=== PATIENT | female | born 1955 | race Caucasian/White ===

== ENCOUNTER → 2016-05-03 | Outpatient (CLI) | payer BC | END | disposition home or self-care (01) | LOC: RADCTMAIN 12:34 | PROVIDERS: ATTEND Otolaryngology | DX: R49.0 Dysphonia (principal) | CPT/HCPCS: 82565; 84520; 86376; 86800 ==

== ENCOUNTER → 2016-05-10 | Outpatient (CLI) | payer BC ==
--- NOTE | 2016-05-10 14:32 | CT ---
EXAMINATION TYPE: CT soft tissue neck w con DATE OF EXAM: 05/10/2016 2:21 PM COMPARISON: NONE HISTORY: Hoarseness CT DLP: 651 mGycm CONTRAST: CT scan of the neck is performed with IV Contrast, patient injected with 50 mL of Visipaque 320. Contrast enhanced CT of the neck was performed from the skull base through the lung apices. AIRWAY: Soft tissue mass at the base of the right tongue measures approximately 2.5 x [address] upon the airway with narrowing noted up to 7 mm. SALIVARY GLANDS: The submandibular and parotid g lands are free of mass or inflammatory process. THYROID GLAND: No nodules or masses seen. LYMPH NODES: 1 cm adenopathy in the region of the right internal jugular chain. LUNG APICES: No nodule or mass is seen. OTHER: Vascular structures are patent. No significant degenerative change of the cervical spine. N o abscess seen. IMPRESSION: Soft tissue mass at the base of the tongue. Tissue diagnosis recommended. Mild adenopathy right inte rnal jugular chain.
== END | disposition home or self-care (01) ==
LOC: RADXRMAIN 12:26
PROVIDERS: ATTEND Otolaryngology
DX: K14.8 Other diseases of tongue (principal); R59.0 Localized enlarged lymph nodes
CPT/HCPCS: 70491; 82565; 84520

== ENCOUNTER 2016-06-16 08:56 | Day surgery (SDC) | payer BC ==
[2016-06-11 12:35] VITALS: BMI 29.9
[~2016-06-16 08:56] MED LIST: DEXAMETHASONE SOD PHOSPHATE 10 MG/ML 1 ML VIAL IV ONE; DEXAMETHASONE SOD PHOSPHATE 4 MG/ML 1 ML VIAL IV ONE; FAMOTIDINE 20 MG/2 ML VIAL IV ONE; HYDROmorphone 1 MG/ML 1 ML SYRINGE IVP PRN; LACTATED RINGERS 1,000 ML IV SCH; MIDAZOLAM 2 MG/2 ML VIAL IV PRN; ONDANSETRON 4 MG/2 ML VIAL IVP ONE; Pre Op ABX Message 1 EACH MISC MISCELLANE ONE
[2016-06-16 09:54] VITALS: TEMP 97.6
[2016-06-16 10:00] LABS: Glucose,Whole Blood 170 mg/dL (75-99)
[2016-06-16] MEDS ORDERED: LIDOCAINE 1% 20 ML VIAL (10MG/ML) FOR IV START INTRADERMA ONE (10:02)
[2016-06-16] MEDS ORDERED: ONDANSETRON 4 MG/2 ML VIAL IVP ONE (10:05)
[2016-06-16] MEDS ORDERED: MIDAZOLAM 2 MG/2 ML VIAL ONE (10:15)
[2016-06-16] MEDS ORDERED: LIDOCAINE 1% INJ 10MG/ML (20 ML MDV) ONE (10:15)
[2016-06-16] MEDS ORDERED: PROPOFOL 10 MG/ML 20 ML VIAL IV ONE (10:15)
[2016-06-16] MEDS ORDERED: fentaNYL (PF) 50 MCG/ML 2 ML AMP ONE (10:15)
--- NOTE | 2016-06-16 10:56 | P.OP ---
Date of Procedure: 06/16/16 Preoperative Diagnosis: Right base of tongue Mass. Hoarseness/chronic laryngitis Postoperative Diagnosis: Same Procedure(s) Performed: Direct microlaryngoscopy with biopsy right base of tongue Anesthesia: MARISELA Surgeon: Alphonso Long Estimated Blood Loss (ml): 2 Pathology: other (Right base of tongue biopsies) Condition: stable Disposition: PACU Indications for Procedure: This is a 61-year-old white female who has had some chronic hoarseness. She also has had an intermittent globus sensation in throat. She underwent computed tomography scan of the neck which showed a 3 x 2 cm right tongue base mass. Direct visualization in the office showed lingual tonsillar hypertrophy with some asymmetry to the right but no focal mass otherwise. Operative Findings: The larynx itself shows no abnormal masses or lesions. There is mild bilateral true vocal cord edema diffusely but no focal masses or lesions. The base of tongue shows lingual tonsillar hypertrophy. This is more prominent on the right but appears consistent with lingual tonsillar tissue. Multiple biopsies however were taken. This tissue is soft and mobile Description of Procedure: The patient was brought in the operative suite and placed in a supine position. The patient underwent induction of general anesthesia with oral endotracheal intubation without difficulty. The patient was prepped and draped in usual aseptic fashion. The gum guard was placed and the base of tongue was palpated digitally with soft hypertrophied lingual tonsils palpated. This was more so on the right than the left. Laryngoscopy was then performed with systematic evaluation of the base of tongue vallecula both piriform sinuses post cricoid area and endolarynx. The laryngoscope was placed in suspension and microscope was brought into position to evaluate the larynx under microscopy with the above findings noted. The microscope and suspension was then removed. Further direct laryngoscopy was performed to evaluate the base of tongue further and multiple small biopsies were taken on the right base of tongue. Hemostasis was gained spontaneously. The patient was then suctioned in oral gastric fashion. The patient was allowed to emerge from general anesthesia having tolerated procedure well exited the operating suite and transferred to the postop recovery in satisfactory condition.
[2016-06-16 11:26] VITALS: RESP 18
[2016-06-16 12:08] VITALS: BP 124/72; PULSE 86
== END 2016-06-16 11:33 | disposition home or self-care (01) ==
LOC: OR 08:56
PROVIDERS: ATTEND Otolaryngology
DX: K14.0 Glossitis (principal); R49.0 Dysphonia; J37.0 Chronic laryngitis; I10 Essential (primary) hypertension; E11.9 Type 2 diabetes mellitus without complications; M10.9 Gout, unspecified; I25.10 Atherosclerotic heart disease of native coronary artery without angina pectoris; M79.7 Fibromyalgia; F17.200 Nicotine dependence, unspecified, uncomplicated; Z79.84 Long term (current) use of oral hypoglycemic drugs; Z79.1 Long term (current) use of non-steroidal anti-inflammatories (NSAID); Z79.899 Other long term (current) drug therapy; Z88.5 Allergy status to narcotic agent
CPT/HCPCS: 88305; 31526; J2250; J1100; J2405; J2001; J3010; J2704

== ENCOUNTER → 2017-01-17 | Outpatient (CLI) | payer BC ==
--- NOTE | 2017-01-17 16:08 | US ---
EXAMINATION TYPE: US carotid duplex BILAT DATE OF EXAM: 01/17/2017 COMPARISON: NONE CLINICAL HISTORY: 61-year-old female R55 Syncope. TECHNIQUE: Multiple sonographic images of the carotid duplex ultrasound examination. Indirect Doppler criteria was utilized. FINDINGS: There is moderate atherosclerotic change at the bifurcations. EXAM MEASUREMENTS: RIGHT: Peak Systolic Velocity (PSV) cm/sec ----- Right CCA: 72.1 ----- Right ICA: 95.2 ----- Right ECA: 102.9 ICA/CCA ratio: 1.3 RIGHT: End Diastole cm/sec ----- Right CCA: 18.8 ----- Right ICA: 27.0 ----- Right ECA: 13.8 LEFT: Peak Systolic Velocity (PSV) cm/sec ----- Left CCA: 86.4 ----- Left ICA: 110.6 ----- Left ECA: 91.9 ICA/CCA ratio: 1.3 LEFT: End Diastole cm/sec ----- Left CCA: 29.2 ----- Left ICA: 39.1 ----- Left ECA: 12.8 VERTEBRALS (direction of flow): Right Vertebral: Antegrade Left Vertebral: Antegrade Rhythm: Normal IMPRESSION: Moderate atherosclerotic change at the bifurcations without hemodynamically significant stenosis appr eciated in either internal carotid artery. Criteria for Assigning % of Stenosis / Diameter reduction (Estimation based on the indirect measurements of the internal carotid artery velocities (ICA PSV). 1. Normal (no stenosis)=ICA PSV < 125 cm/s: ratio < 2.0: ICA EDV<40 cm/s. 2. Less than 50% stenosis=ICA PSV < 125 cm/s: ratio < 2.0: ICA EDV<40 cm/s. 3. 50 to 69% stenosis=ICA PSV of 125 to 230 cm/s: ration 2.0 ? 4.0: ICA EDV 40-100 cm/s. 4. Greater than 70% stenosis to near occlusion= ICA PSV > 230 cm/s: ratio > 4.0: ICA EDV > 100 cm/s. 5. Near occlusion= ICA PSV velocities may be low or undetectable: variable ratio and ICA EDV. 6. Total occlusion=unable to detect flow.
== END ==
LOC: RADUSWWP 13:26
PROVIDERS: ATTEND Family Medicine
DX: I70.90 Unspecified atherosclerosis (principal)
CPT/HCPCS: 93880

== ENCOUNTER → 2018-01-20 | Outpatient (CLI) | payer BC ==
--- NOTE | 2018-01-23 10:43 | MM ---
Reason for exam: screening (asymptomatic). Last mammogram was performed 3 years and 5 months ago. History: Patient is postmenopausal, history of other cancer, and is nulliparous. Physical Findings: A clinical breast exam by your physician is recommended on an annual basis and results should be correlated with mammographic findings. MG Screening Mammo w CAD Bilateral CC, MLO, and XCCL view(s) were taken. Prior study comparison: August 29, 2014, left breast MG work up mamm w CAD LT. August 21, 2014, bilateral MG screening mammo w CAD. The breast tissue is heterogeneously dense. This may lower the sensitivity of mammography. There are benign appearing round calcifications bilaterally. There is no discrete abnormality. ASSESSMENT: Benign, BI-RAD 2 RECOMMENDATION: Routine screening mammogram of both breasts in 1 year.
== END | disposition home or self-care (01) ==
LOC: RADMAMWWP 13:21
PROVIDERS: ATTEND Family Medicine
DX: Z12.31 Encounter for screening mammogram for malignant neoplasm of breast (principal)
CPT/HCPCS: 77067

== ENCOUNTER 2018-03-23 06:46 | Day surgery (SDC) | payer BC ==
[2018-03-21 13:13] VITALS: BMI 26.6
[~2018-03-23 06:46] MED LIST changes: -DEXAMETHASONE SOD PHOSPHATE 10 MG/ML 1 ML VIAL IV ONE; -DEXAMETHASONE SOD PHOSPHATE 4 MG/ML 1 ML VIAL IV ONE; -FAMOTIDINE 20 MG/2 ML VIAL IV ONE; -HYDROmorphone 1 MG/ML 1 ML SYRINGE IVP PRN; +LIDOCAINE 1% 20 ML VIAL (10MG/ML) FOR IV START INTRADERMA PRN; -MIDAZOLAM 2 MG/2 ML VIAL IV PRN; -ONDANSETRON 4 MG/2 ML VIAL IVP ONE; -Pre Op ABX Message 1 EACH MISC MISCELLANE ONE
[2018-03-23 07:20] VITALS: RESP 16; TEMP 98.5
[2018-03-23 07:34] LABS: Glucose,Whole Blood 133 mg/dL (75-99)
[2018-03-23] MEDS ORDERED: LIDOCAINE 1% INJ 10MG/ML (20 ML MDV) ONE (07:36)
[2018-03-23] MEDS ORDERED: PROPOFOL 10 MG/ML 20 ML VIAL IV ONE (07:36)
--- NOTE | 2018-03-23 08:45 | P.PCN ---
Date of Procedure: 03/23/18 Description of Procedure: BRIEF HISTORY: Patient is a 62-year-old pleasant female patient with a medical history significant for diabetes mellitus, hypertension, COPD, dyslipidemia and prior history of microscopic colitis seen in the outpatient setting for a history of diarrhea. Previously she hasn't had a colonoscopy with the surgical service in January 2015 which was significant for lymphocytic colitis on pathology evaluation. The patient has been tried on multiple medications including antibiotic therapy, Pepto-Bismol, hyoscyamine as well as Lomotil and Imodium but has been unable to get control of her loose bowel movements. Previously she had been using an [id number] pain reliever which contains aspirin which she stopped after seeing us in consult, but is continued to have symptoms. She is having a colonoscopy to confirm persistent microscopic colitis with consideration for steroid treatment. PROCEDURE PERFORMED: Colonoscopy with polypectomy and random biopsy. PREOPERATIVE DIAGNOSIS: Diarrhea history of microscopic colitis. ESTIMATED BLOOD LOSS: Minimal. IV sedation per Anesthesia. PROCEDURE: After informed consent was obtained, the patient, was brought into the endoscopy unit. IV sedation was administered by Anesthesia under continuous monitoring. Digital rectal examination was normal. Initially the Olympus CF- 190 flexible video colonoscope was then inserted in the rectum, gradually advanced into the cecum without any difficulty. Careful examination was performed as the scope was gradually being withdrawn. Ileocecal valve and the appendiceal orifice were visualized and appeared normal. Prep was excellent. Mucosa of the cecum, ascending colon, transverse colon, descending colon, sigmoid colon, and rectum appeared normal. A 4 mm polyp was noted in the cecum and removed with cold snare polypectomy. A 8 mm polyp was noted in the descending colon and removed with cold snare. A 6 mm polyp was noted in the rectum and removed with cold snare. Retroflexion was performed in the rectum and no lesions were seen, but internal hemorrhoids were noted. The patient tolerated the procedure well. IMPRESSION: Normal-appearing colon from rectum to cecum. Cecal, ascending and rectal polypectomy performed. Internal hemorrhoids. RECOMMENDATIONS: Findings of this examination were discussed with the patient and her sister. Await pathology from biopsies. Continue Imodium as needed. Consideration for steroid therapy if microscopic colitis is confirmed. Patient to follow up in GI clinic.
[2018-03-23 08:53] VITALS: BP 152/78; PULSE 80
== END 2018-03-23 09:44 | disposition home or self-care (01) ==
LOC: ORWHC2ENDO 06:46
PROVIDERS: ATTEND Internal Medicine
DX: D12.2 Benign neoplasm of ascending colon (principal); D12.0 Benign neoplasm of cecum; K62.1 Rectal polyp; K63.5 Polyp of colon; K64.8 Other hemorrhoids; R19.7 Diarrhea, unspecified; E11.9 Type 2 diabetes mellitus without complications; I10 Essential (primary) hypertension; J44.9 Chronic obstructive pulmonary disease, unspecified; E78.5 Hyperlipidemia, unspecified; F17.210 Nicotine dependence, cigarettes, uncomplicated; Z79.899 Other long term (current) drug therapy; Z79.84 Long term (current) use of oral hypoglycemic drugs; Z88.1 Allergy status to other antibiotic agents; Z88.5 Allergy status to narcotic agent; Z85.820 Personal history of malignant melanoma of skin
CPT/HCPCS: 88305; 45385; J2001; J2704; 45380

== ENCOUNTER 2018-05-02 13:38 | Inpatient (IN) | payer BC ==
[2018-05-02] MEDS ORDERED: SODIUM CHLORIDE 0.9% 1,000 ML IV ONE ×2 (15:11→16:49)
[2018-05-02] MEDS ORDERED: SODIUM CHLORIDE 0.9% 500 ML 500 ML IV ONE (15:11)
[2018-05-02] MEDS ORDERED: DIPHENOX-ATROP 2.5-0.025 MG 1 EACH TAB PO STA (15:11)
--- NOTE | 2018-05-02 15:17 | ED ---
General Adult HPI - General Chief complaint: Nausea/Vomiting/Diarrhea Stated complaint: DIARRHEA Time Seen by Provider: 05/02/18 13:55 Source: patient, RN notes reviewed Mode of arrival: ambulatory Limitations: no limitations - History of Present Illness Initial comments: This is a 63-year-old female presents emergency Department complaining of diarrhea 5 days. Patient states she's had intermittent bouts of diarrhea since 2007. Patient states this last 5 days is a little worse than normal. Patient states she feels dehydrated and states she hasn't urinated in over 24 hours. Patient denies any abdominal pain. Patient denies any nausea or vomiting. Patient denies any fever chills per patient denies chest pain difficulty breathing first breath per patient denies any dizziness lightheadedness or near syncopal episodes. Patient denies any blood in the stool. - Related Data Home Medications Medication Instructions Recorded Confirmed Allopurinol [Zyloprim] 300 mg PO HS 06/11/16 05/02/18 Hydrochlorothiazide [Hydrodiuril] 25 mg PO HS 06/11/16 05/02/18 Simvastatin [Zocor] 40 mg PO HS 06/11/16 05/02/18 sitaGLIPtin PHOS/metFORMIN HCL 1 tab PO BID 06/11/16 05/02/18 [Janumet 50-1,000 mg Tablet] Allergies Allergy/AdvReac Type Severity Reaction Status Date / Time atropine [From Lomotil] Allergy Swelling Verified 05/02/18 15:33 diphenoxylate [From Lomotil] Allergy Swelling Verified 05/02/18 15:33 codeine AdvReac Unknown Nausea & Verified 05/02/18 14:26 Vomiting levofloxacin [From Levaquin] AdvReac Nausea & Verified 05/02/18 14:26 Vomiting metronidazole [From Flagyl] AdvReac Nausea & Verified 05/02/18 14:26 Vomiting Review of Systems ROS Statement: Those systems with pertinent positive or pertinent negative responses have been documented in the HPI. ROS Other: All systems not noted in ROS Statement are negative. Past Medical History Past Medical History: Cancer, Diabetes Mellitus, Fibromyalgia Additional Past Medical History / Comment(s): STATES "WATER RETENTION", TAKES ALLOPURINAL FOR A PREVENATIVE FOR GOUT DUE TO FAMILY HX., IBS WITH DIARRHEA., HX OF MELANOMA, TORN RIGHT ROTATOR CUFF, STATES MASS AT BASE OF TONGUE -FEELS LIKE SHE HAS SOMETHING IN HER THROAT. History of Any Multi-Drug Resistant Organisms: None Reported Past Surgical History: Cholecystectomy, Orthopedic Surgery, Tonsillectomy Additional Past Surgical History / Comment(s): LEFT ROTATOR CUFF, KNEE SURGERY, SKIN CA, MARIO EAR SURGERY. Past Anesthesia/Blood Transfusion Reactions: Postoperative Nausea & Vomiting ( PONV) Past Psychological History: No Psychological Hx Reported Smoking Status: Current every day smoker Past Alcohol Use History: None Reported Past Drug Use History: None Reported - Past Family History Mother Family Medical History: No Reported History Brother(s) Family Medical History: Deep Vein Thrombosis (DVT), Myocardial Infarction ([place]), Vascular Disorder General Exam - General Exam Comments Initial Comments: GENERAL: Patient is well-developed and well-nourished. Patient is nontoxic and well- hydrated and is in mild distress. ENT: Neck is soft and supple. No significant lymphadenopathy is noted. Oropharynx is clear. Dry mucous membranes. Neck has full range of motion without eliciting any pain. EYES: The sclera were anicteric and conjunctiva were pink and moist. Extraocular movements were intact and pupils were equal round and reactive to light. Eyelids were unremarkable. PULMONARY: Unlabored respirations. Good breath sounds bilaterally. No audible rales rhonchi or wheezing was noted. CARDIOVASCULAR: There is a regular rate and rhythm without any murmurs gallops or rubs. ABDOMEN: Soft and nontender with normal bowel sounds. No palpable organomegaly was noted. There is no palpable pulsatile mass. SKIN: Skin is clear with no lesions or rashes and otherwise unremarkable. NEUROLOGIC: Patient is alert and oriented x3. Cranial nerves II through XII are grossly intact. Motor and sensory are also intact. Normal speech, volume and content. Symmetrical smile. MUSCULOSKELETAL: Normal extremities with adequate strength and full range of motion. No lower extremity swelling or edema. No calf tenderness. LYMPHATICS: No significant lymphadenopathy is noted PSYCHIATRIC: Normal psychiatric evaluation. Limitations: no limitations Course Vital Signs 05/02/18 05/02/18 13:55 16:06 Temperature 98.1 F Pulse Rate 100 91 Respiratory 18 18 Rate Blood Pressure 121/77 124/73 O2 Sat by Pulse 97 99 Oximetry Medical Decision Making - Medical Decision Making Patient's potassium was also replaced some potassium with a oral dose as well as an IV dose. Patient also had an elevated creatinine I spoke with because the doctor doesn't want to admit the patient admitted the patient wrote admitting orders - Lab Data Result diagrams: 05/02/18 15:20 05/02/18 15:20 Lab Results 05/02/18 05/02/18 Range/Units 15:20 15:20 WBC 9.2 (3.8-10.6) k/uL RBC 4.86 (3.80-5.40) m/uL Hgb 14.8 (11.4-16.0) gm/dL Hct 44.6 (34.0-46.0) % MCV 91.9 (80.0-100.0) fL MCH 30.4 (25.0-35.0) pg MCHC 33.1 (31.0-37.0) g/dL RDW 14.4 (11.5-15.5) % Plt Count 238 (150-450) k/uL Neutrophils % 86 % Lymphocytes % 10 % Monocytes % 3 % Eosinophils % 0 % Basophils % 0 % Neutrophils # 7.9 H (1.3-7.7) k/uL Lymphocytes # 0.9 L (1.0-4.8) k/uL Monocytes # 0.3 (0-1.0) k/uL Eosinophils # 0.0 (0-0.7) k/uL Basophils # 0.0 (0-0.2) k/uL Sodium 141 (137-145) mmol/L Potassium 2.7 L* (3.5-5.1) mmol/L Chloride 101 (98-107) mmol/L Carbon Dioxide 26 (22-30) mmol/L Anion Gap 14 mmol/L BUN 27 H (7-17) mg/dL Creatinine 2.40 H (0.52-1.04) mg/dL Est GFR (CKD-EPI)AfAm 24 (>60 ml/min/1.73 sqM) Est GFR (CKD-EPI)NonAf 21 (>60 ml/min/1.73 sqM) Glucose 130 H (74-99) mg/dL Calcium 9.3 (8.4-10.2) mg/dL Total Bilirubin 0.7 (0.2-1.3) mg/dL AST 14 (14-36) U/L ALT 15 (9-52) U/L Alkaline Phosphatase 77 (38-126) U/L Total Protein 6.6 (6.3-8.2) g/dL Albumin 4.4 (3.5-5.0) g/dL Disposition Clinical Impression: Hypokalemia, Acute renal failure Disposition: ADMITTED IP TO THIS HOSP Referrals: Ari Cristina MD [Primary Care Provider] - 1-2 days Time of Disposition: 16:43
[2018-05-02 15:43] LABS: Basophils % (A) 0 %; Eosinophils % (A) 0 %; HCT 44.6 % (34.0-46.0); HGB 14.8 gm/dL (11.4-16.0); Lymphocytes # (A) 0.9 k/uL (1.0-4.8); Lymphocytes % (A) 10 %; MCH 30.4 pg (25.0-35.0); MCHC 33.1 g/dL (31.0-37.0); MCV 91.9 fL (80.0-100.0); Mean Platelet Volume 6.1; Monocytes # (A) 0.3 k/uL (0-1.0); Monocytes % (A) 3 %; Neutrophils # (A) 7.9 k/uL (1.3-7.7); Neutrophils % (A) 86 %; Platelet Count 238 k/uL (150-450); RBC 4.86 m/uL (3.80-5.40); RDW 14.4 % (11.5-15.5); WBC 9.2 k/uL (3.8-10.6)
[2018-05-02 15:53] LABS: Albumin 4.4 g/dL (3.5-5.0); Calcium 9.3 mg/dL (8.4-10.2); Total Bilirubin 0.7 mg/dL (0.2-1.3); Total Protein 6.6 g/dL (6.3-8.2)
[2018-05-02 15:56] LABS: Potassium 2.7 mmol/L (3.5-5.1)
[2018-05-02] MEDS ORDERED: POTASSIUM CHLORIDE 20 MEQ in WATER FOR INJECTION 1 100ML.BAG IVPB STA (16:07)
[2018-05-02] MEDS ORDERED: POTASSIUM CHLORIDE ER 20 MEQ TAB.ER PO STA ×2 (16:08→23:18)
[2018-05-02] MEDS ORDERED: DIPHENOX-ATROP 2.5-0.025 MG 1 EACH TAB PO PRN (16:50)
--- NOTE | 2018-05-02 17:56 | P.HPIM ---
History of Present Illness 63-year-old female came in with compensative from severe and worsening diarrhea from her baseline for last 4-5 days. Patient is found to be in renal failure secondary to diarrhea because of which patient was started on IV fluids patient is severely hypokalemic as well. Patient baseline creatinine appears to be around 1.1.4 of around 2.5. Patient has history of chronic diarrhea was evaluated extensively in the past patient had a colonoscopy which showed microscopic colitis supposed to get budesonide oral but because of the cost patient didn't take this medication. Patient does antibiotics in late March for what appears like upper respiratory infection. Patient also has symptoms of flu earlier this month. C. diff testing is being obtained a C. diff is negative patient can be started on symptomatic treatment. Patient appears to have had ALLERGIC reaction to Lomotil. Denied any nausea vomiting she denied any abdominal pain she denied any hematochezia, dark stools Review of Systems REVIEW OF SYSTEMS: CONSTITUTIONAL: No fever, no malaise, no fatigue. HEENT: No recent visual problems or hearing problems. Denied any sore throat. CARDIOVASCULAR: No chest pain, orthopnea, PND, no palpitations, no syncope. PULMONARY: No shortness of breath, no cough, no hemoptysis. GASTROINTESTINAL no nausea, no vomiting, no abdominal pain. NEUROLOGICAL: No headaches, no weakness, no numbness. HEMATOLOGICAL: Denies any bleeding or petechiae. GENITOURINARY: Denies any burning micturition, frequency, or urgency. MUSCULOSKELETAL/RHEUMATOLOGICAL: Denies any joint pain, swelling, or any muscle pain. ENDOCRINE: Denies any polyuria or polydipsia. The rest of the 14-point review of systems is negative. Past Medical History Past Medical History: Cancer, Diabetes Mellitus, Fibromyalgia Additional Past Medical History / Comment(s): STATES "WATER RETENTION", TAKES ALLOPURINAL FOR A PREVENATIVE FOR GOUT DUE TO FAMILY HX., IBS WITH DIARRHEA., HX OF MELANOMA, TORN RIGHT ROTATOR CUFF, STATES MASS AT BASE OF TONGUE -FEELS LIKE SHE HAS SOMETHING IN HER THROAT. History of Any Multi-Drug Resistant Organisms: None Reported Past Surgical History: Cholecystectomy, Orthopedic Surgery, Tonsillectomy Additional Past Surgical History / Comment(s): LEFT ROTATOR CUFF, KNEE SURGERY, SKIN CA, MARIO EAR SURGERY. Past Anesthesia/Blood Transfusion Reactions: Postoperative Nausea & Vomiting ( PONV) Past Psychological History: No Psychological Hx Reported Smoking Status: Current every day smoker Past Alcohol Use History: None Reported Past Drug Use History: None Reported - Past Family History Mother Family Medical History: No Reported History Brother(s) Family Medical History: Deep Vein Thrombosis (DVT), Myocardial Infarction ([place]), Vascular Disorder Medications and Allergies Home Medications Medication Instructions Recorded Confirmed Type Allopurinol [Zyloprim] 300 mg PO HS 06/11/16 05/02/18 History Hydrochlorothiazide [Hydrodiuril] 25 mg PO HS 06/11/16 05/02/18 History Simvastatin [Zocor] 40 mg PO HS 06/11/16 05/02/18 History sitaGLIPtin PHOS/metFORMIN HCL 1 tab PO BID 06/11/16 05/02/18 History [Janumet 50-1,000 mg Tablet] Allergies Allergy/AdvReac Type Severity Reaction Status Date / Time atropine [From Lomotil] Allergy Swelling Verified 05/02/18 15:33 diphenoxylate [From Lomotil] Allergy Swelling Verified 05/02/18 15:33 codeine AdvReac Unknown Nausea & Verified 05/02/18 14:26 Vomiting levofloxacin [From Levaquin] AdvReac Nausea & Verified 05/02/18 14:26 Vomiting metronidazole [From Flagyl] AdvReac Nausea & Verified 05/02/18 14:26 Vomiting Physical Exam Vitals: Vital Signs Temp Pulse Resp BP Pulse Ox 05/02/18 17:17 98.2 F 84 18 115/62 97 05/02/18 16:06 91 18 124/73 99 05/02/18 13:55 98.1 F 100 18 121/77 97 Intake and Output 05/02/18 05/02/18 05/02/18 06:59 14:59 22:59 Other: Weight 72.575 kg PHYSICAL EXAMINATION: GENERAL: The patient is alert and oriented x3, not in any acute distress. Well developed, well nourished. HEENT: Pupils are round and equally reacting to light. EOMI. No scleral icterus. No conjunctival pallor. Normocephalic, atraumatic. No pharyngeal erythema. No thyromegaly. CARDIOVASCULAR: S1 and S2 present. No murmurs, rubs, or gallops. PULMONARY: Chest is clear to auscultation, no wheezing or crackles. ABDOMEN: Soft, nontender, nondistended, normoactive bowel sounds. No palpable organomegaly. MUSCULOSKELETAL: No joint swelling or deformity. EXTREMITIES: No cyanosis, clubbing, or pedal edema. NEUROLOGICAL: Gross neurological examination did not reveal any focal deficits. SKIN: No rashes. Results CBC & Chem 7: 05/02/18 15:20 05/02/18 15:20 Labs: Abnormal Lab Results - Last 24 Hours (Table) 05/02/18 05/02/18 Range/Units 15:20 15:20 Neutrophils # 7.9 H (1.3-7.7) k/uL Lymphocytes # 0.9 L (1.0-4.8) k/uL Potassium 2.7 L* (3.5-5.1) mmol/L BUN 27 H (7-17) mg/dL Creatinine 2.40 H (0.52-1.04) mg/dL Glucose 130 H (74-99) mg/dL Assessment and Plan Plan: -Acute renal failure: Prerenal azotemia secondary to severe diarrhea patient will be started on IV fluids at 1 25 mL/h with 40 mEq of potassium in the back recheck a significant metabolic profile tomorrow. I cannot rule out acute tubular necrosis will obtain UA, urine random creatinine urine random sodium did patient has not been urinating much for last couple days. We'll rule out Clostridium difficile colitis area patient will be started and on symptomatically treatment 1 C. diff is ruled out we'll Allsop in consultation from gastroenterology as patient symptoms may be related to microscopic colitis( lymphocytis colitis). -possible chronic kidney disease stage II to 3 from diabetic nephropathy -Type 2 diabetes mellitus: Patient will be started on sliding scale insulin and hold off oral hypoglycemic agents -Fibromyalgia -Nicotine abuse: Counseling was provided
[2018-05-02] MEDS: 0.9% NACL WITH KCL 40 MEQ/L 1,000 ML IV SCH (18:40)
[2018-05-02] MEDS: INSULIN ASPART 100 UNIT/ML 1 ML 10 ML VIAL SQ SCH ×2 (20:04→20:06)
[2018-05-02] MEDS: ATORVASTATIN 20 MG TAB PO SCH (20:05)
[2018-05-02 20:21] LABS: Glucose,Whole Blood 111 mg/dL (75-99)
[2018-05-02] MEDS ORDERED: INSULIN ASPART 100 UNIT/ML 1 ML 10 ML VIAL SQ SCH (21:00)
[2018-05-03 04:29] LABS: Hemoglobin A1C 6.2 % (4.0-6.0)
[2018-05-03] MEDS: 0.9% NACL WITH KCL 40 MEQ/L 1,000 ML IV SCH ×2 (06:22→08:56)
[2018-05-03 08:01] LABS: Glucose,Whole Blood 115 mg/dL (75-99)
[2018-05-03] MEDS: INSULIN ASPART 100 UNIT/ML 1 ML 10 ML VIAL SQ SCH ×3 (08:49→18:01)
[2018-05-03 08:51] LABS: HCT 39.8 % (34.0-46.0); HGB 13.6 gm/dL (11.4-16.0); MCH 31.5 pg (25.0-35.0); MCHC 34.2 g/dL (31.0-37.0); MCV 92.1 fL (80.0-100.0); Mean Platelet Volume 6.9; Platelet Count 224 k/uL (150-450); RBC 4.32 m/uL (3.80-5.40); RDW 14.4 % (11.5-15.5); WBC 7.3 k/uL (3.8-10.6)
[2018-05-03 09:10] LABS: Calcium 8.7 mg/dL (8.4-10.2); Magnesium 1.4 mg/dL (1.6-2.3); Potassium 3.8 mmol/L (3.5-5.1)
--- NOTE | 2018-05-03 10:41 | P.NPCON ---
History of Present Illness - Reason for Consult acute renal failure, hypokalemia - History of Present Illness Reason for consultation: Acute kidney injury History of present illness: Patient is a 63-year-old female seen in consultation for acute kidney injury and hypokalemia. Patient presented to the hospital due to diarrhea which started about 5 days ago. Patient states she is having 2-3 bowel movements every hour. Her oral intake has been quite poor. She also admits to taking hydrochlorothiazide as an outpatient. No vomiting. Denies history of renal disease. Creatinine last month was 1.2 and over the last 2 years her baseline creatinine appears to be in the range of 1.1-1.3. She does have history of diabetes mellitus. She was taking metformin at home which is currently held. Continues to have diarrhea. Denies chest pain or shortness of breath. Denies use of NSAIDs. Creatinine was 2.4 on admission and is 1.47 today. Potassium is 3.8. Magnesium level is low at 1.4. Vital signs are stable. General: The patient appeared well nourished and normally developed. HEENT: Head exam is unremarkable. Neck is without jugular venous distension. LUNGS: Lungs are clear to auscultation and percussion. Breath sounds decreased. HEART: Rate and Rhythm are regular. First and second heart sounds normal. No murmurs, rubs or gallops. ABDOMEN: Abdominal exam reveals normal bowel sounds. Non-tender and non- distended. No evidence of peritonitis. EXTREMITITES: No clubbing, cyanosis, or edema. Past Medical History Past Medical History: Cancer, Diabetes Mellitus, Fibromyalgia Additional Past Medical History / Comment(s): STATES "WATER RETENTION", IBS WITH DIARRHEA., OF MELANOMA, TORN RIGHT ROTATOR CUFF, STATES Lingual Tonsilar TissueMASS AT BASE OF TONGUE -FEELS LIKE SHE HAS SOMETHING IN HER THROAT. History of Any Multi-Drug Resistant Organisms: None Reported Past Surgical History: Cholecystectomy, Orthopedic Surgery, Tonsillectomy Additional Past Surgical History / Comment(s): LEFT ROTATOR CUFF, RT KNEE SURGERY, SKIN CA, MARIO EAR SURGERY. Colonoscopy 03/23/18-microscopic colitis Past Anesthesia/Blood Transfusion Reactions: Postoperative Nausea & Vomiting ( PONV) Past Psychological History: No Psychological Hx Reported Smoking Status: Current every day smoker Past Alcohol Use History: None Reported Past Drug Use History: None Reported - Past Family History Mother Family Medical History: No Reported History, Dementia Additional Family Medical History / Comment(s): PARKINSONS Brother(s) Family Medical History: Deep Vein Thrombosis (DVT), Myocardial Infarction ([place]), Vascular Disorder Father Family Medical History: Diabetes Mellitus Medications and Allergies Home Medications Medication Instructions Recorded Confirmed Type Allopurinol [Zyloprim] 300 mg PO HS 06/11/16 05/02/18 History Hydrochlorothiazide [Hydrodiuril] 25 mg PO HS 06/11/16 05/02/18 History Simvastatin [Zocor] 40 mg PO HS 06/11/16 05/02/18 History sitaGLIPtin PHOS/metFORMIN HCL 1 tab PO BID 06/11/16 05/02/18 History [Janumet 50-1,000 mg Tablet] Allergies Allergy/AdvReac Type Severity Reaction Status Date / Time atropine [From Lomotil] Allergy Swelling Verified 05/02/18 15:33 diphenoxylate [From Lomotil] Allergy Swelling Verified 05/02/18 15:33 codeine AdvReac Unknown Nausea & Verified 05/02/18 14:26 Vomiting levofloxacin [From Levaquin] AdvReac Nausea & Verified 05/02/18 14:26 Vomiting metronidazole [From Flagyl] AdvReac Nausea & Verified 05/02/18 14:26 Vomiting Physical Exam Vitals: Vital Signs Temp Pulse Pulse Resp BP BP Pulse Ox 05/03/18 07:00 98.2 F 79 16 112/70 94 L 05/02/18 23:45 98.7 F 87 20 112/67 93 L 05/02/18 23:06 16 05/02/18 18:34 98.0 F 88 16 111/70 96 05/02/18 17:17 98.2 F 84 18 115/62 97 05/02/18 16:06 91 18 124/73 99 05/02/18 13:55 98.1 F 100 18 121/77 97 Intake and Output 05/02/18 05/03/18 05/03/18 22:59 06:59 14:59 Other: Voiding Method Toilet Toilet # Voids 0 # Bowel Movements 5 1 Results - Lab Results Most recent lab results Calcium 8.7 mg/dL (8.4-10.2) 05/03/18 08:37 Magnesium 1.4 mg/dL (1.6-2.3) L 05/03/18 08:37 05/03/18 08:37 05/03/18 08:37 Assessment and Plan Plan: Assessment: 1. Nonoliguric acute kidney injury mostly prerenal secondary to intravascular volume depletion from diarrhea and hydrochlorothiazide. Creatinine was 2.4 on admission and is 1.47 today. 2. Chronic kidney disease stage III with baseline creatinine in the range of 1.1-1.3. Etiology is diabetic kidney disease. 3. Hypokalemia from GI losses as well as diuretics. 4. Hypomagnesemia secondary to diuretics and GI losses. 5. Diarrhea. She does have history of colitis. GI following. 6. Diabetes mellitus. Plan: Maintain normal saline at 125 mL an hour. Replace magnesium. 3 g IV today. Avoid nephrotoxins. Repeat electrolytes in the morning. Thank you for the consultation. I will continue to follow the patient with you during her hospital stay.
[2018-05-03 10:42] VITALS: BMI 26.6
[2018-05-03] MEDS ORDERED: LOPERAMIDE 2 MG CAP PO STA (11:00)
[2018-05-03] MEDS: SODIUM CHLORIDE 0.9% 1,000 ML IV SCH ×2 (11:05→18:03)
[2018-05-03] MEDS: MAGNESIUM SULFATE-D5W PMX 1 GM in DEXTROSE/WATER 1 100ML.BAG IVPB SCH ×3 (11:07→13:40)
--- NOTE | 2018-05-03 11:07 | P.CONS ---
History of Present Illness - Reason for Consult Consult date: 05/03/18 Diarrhea history of microscopic colitis Requesting physician: Virgil Holman - Chief Complaint Diarrhea - History of Present Illness 63-year-old female with a history of IBS-D, microscopic colitis recent colonoscopy March 2018 admitted with profound nonbloody diarrhea upwards 20 times daily. Patient was advised in the outpatient setting to take Imodium as well as Entocort for microscopic colitis however patient was not able to fill prescription secondary to financial reasons and only takes Imodium when she leaves the house. Over the last 5 days she's had 2-3 bowel movements an hour. Her baseline bowel movements is one daily sometimes 2-3 daily. She only takes Imodium when she has to leave the house. Colonoscopy biopsies consistent with a focal nonspecific acute inflammation consistent with with resolving acute infectious or self-limited colitis. C. diff negative. Denies hematemesis hematochezia melena. No fever or chills. No change in medications. No recent travels or sick contacts. White count 9.2. Hemoglobin 14.8. Sodium 141. Potassium 2.7. BUN 27. Creatinine 2.4. Presently BUN 19. Creatinine 1.4. Lactic acid initially 2.7 presently 0.9. Review of Systems Constitutional: Denies fever, chills, sweats, weight gain, or loss. HEENT: Negative for migraines, blurred vision or loss, earaches, drainage, tinnitus, oral mucosal lesions, dysphagia, or odynophagia. CARDIAC: Negative for chest pain, arrhythmias, or palpitation. RESPIRATORY: Negative for shortness of breath, hemoptysis, cough, or sputum production. GI: See HPI for pertinent findings. : Negative for hematuria, urgency, frequency, polyuria, or dysuria. GYNc: Negative vaginal discharge. MUSCULOSKELETAL: Negative for muscle aches, swelling, arthritis, and arthralgias. NEUROLOGIC: Negative for stroke or TIA. ENDOCRINE: Negative for thyroid problems. SKIN: Negative for rash or itching. PSYCHIATRIC: Negative history for depression and anxiety Past Medical History Past Medical History: Cancer, Diabetes Mellitus, Fibromyalgia Additional Past Medical History / Comment(s): STATES "WATER RETENTION", IBS WITH DIARRHEA., OF MELANOMA, TORN RIGHT ROTATOR CUFF, STATES Lingual Tonsilar TissueMASS AT BASE OF TONGUE -FEELS LIKE SHE HAS SOMETHING IN HER THROAT. History of Any Multi-Drug Resistant Organisms: None Reported Past Surgical History: Cholecystectomy, Orthopedic Surgery, Tonsillectomy Additional Past Surgical History / Comment(s): LEFT ROTATOR CUFF, RT KNEE SURGERY, SKIN CA, MARIO EAR SURGERY. Colonoscopy 03/23/18-microscopic colitis Past Anesthesia/Blood Transfusion Reactions: Postoperative Nausea & Vomiting ( PONV) Past Psychological History: No Psychological Hx Reported Smoking Status: Current every day smoker Past Alcohol Use History: None Reported Past Drug Use History: None Reported - Past Family History Mother Family Medical History: No Reported History, Dementia Additional Family Medical History / Comment(s): PARKINSONS Brother(s) Family Medical History: Deep Vein Thrombosis (DVT), Myocardial Infarction ([place]), Vascular Disorder Father Family Medical History: Diabetes Mellitus Medications and Allergies Home Medications Medication Instructions Recorded Confirmed Type Allopurinol [Zyloprim] 300 mg PO HS 06/11/16 05/02/18 History Hydrochlorothiazide [Hydrodiuril] 25 mg PO HS 06/11/16 05/02/18 History Simvastatin [Zocor] 40 mg PO HS 06/11/16 05/02/18 History sitaGLIPtin PHOS/metFORMIN HCL 1 tab PO BID 06/11/16 05/02/18 History [Janumet 50-1,000 mg Tablet] Allergies Allergy/AdvReac Type Severity Reaction Status Date / Time atropine [From Lomotil] Allergy Swelling Verified 05/02/18 15:33 diphenoxylate [From Lomotil] Allergy Swelling Verified 05/02/18 15:33 codeine AdvReac Unknown Nausea & Verified 05/02/18 14:26 Vomiting levofloxacin [From Levaquin] AdvReac Nausea & Verified 05/02/18 14:26 Vomiting metronidazole [From Flagyl] AdvReac Nausea & Verified 05/02/18 14:26 Vomiting Physical Exam Vitals: Vital Signs Temp Pulse Pulse Resp BP BP Pulse Ox 05/03/18 07:00 98.2 F 79 16 112/70 94 L 05/02/18 23:45 98.7 F 87 20 112/67 93 L 05/02/18 23:06 16 05/02/18 18:34 98.0 F 88 16 111/70 96 05/02/18 17:17 98.2 F 84 18 115/62 97 05/02/18 16:06 91 18 124/73 99 05/02/18 13:55 98.1 F 100 18 121/77 97 Intake and Output 05/02/18 05/03/18 05/03/18 22:59 06:59 14:59 Other: Voiding Method Toilet Toilet # Voids 0 # Bowel Movements 5 1 Weight 72.575 kg General appearance: The patient is alert, oriented, in no acute distress. HET: Head is normocephalic and atraumatic. Pupils are equal and reactive. Oropharynx is clear without lesions. Neck: Supple without lymphadenopathy. Trachea midline. Heart: S1 S2. Regular rate and rhythm. Lungs: No crackles or wheezes are heard. Abdomen: Soft, nontender, nondistended with bowel sounds. No peritoneal signs. No palpable organomegaly or masses. Extremities: Normal skin color and turgor. No cyanosis, rash, ulceration, clubbing, or edema. Radial and pedal pulses are 2/4 bilaterally. Neurological: No focal deficits. Strength and sensation are grossly intact. Results CBC & Chem 7: 05/03/18 08:37 05/03/18 08:37 Labs: Abnormal Lab Results - Last 24 Hours (Table) 05/02/18 05/02/18 05/02/18 Range/Units 15:20 15:20 18:07 Neutrophils # 7.9 H (1.3-7.7) k/uL Lymphocytes # 0.9 L (1.0-4.8) k/uL Potassium 2.7 L* (3.5-5.1) mmol/L Chloride (98-107) mmol/L BUN 27 H (7-17) mg/dL Creatinine 2.40 H (0.52-1.04) mg/dL Glucose 130 H (74-99) mg/dL POC Glucose (mg/dL) (75-99) mg/dL Hemoglobin A1c (4.0-6.0) % Plasma Lactic Acid Karthikeyan 2.7 H* (0.7-2.0) mmol/L Magnesium (1.6-2.3) mg/dL 05/02/18 05/02/18 05/02/18 Range/Units 20:01 21:12 21:12 Neutrophils # (1.3-7.7) k/uL Lymphocytes # (1.0-4.8) k/uL Potassium 3.2 L (3.5-5.1) mmol/L Chloride (98-107) mmol/L BUN (7-17) mg/dL Creatinine (0.52-1.04) mg/dL Glucose (74-99) mg/dL POC Glucose (mg/dL) 111 H (75-99) mg/dL Hemoglobin A1c 6.2 H (4.0-6.0) % Plasma Lactic Acid Karthikeyan (0.7-2.0) mmol/L Magnesium (1.6-2.3) mg/dL 05/02/18 05/03/18 05/03/18 Range/Units 21:48 07:57 08:37 Neutrophils # (1.3-7.7) k/uL Lymphocytes # (1.0-4.8) k/uL Potassium (3.5-5.1) mmol/L Chloride 113 H (98-107) mmol/L BUN 19 H (7-17) mg/dL Creatinine 1.47 H (0.52-1.04) mg/dL Glucose 125 H (74-99) mg/dL POC Glucose (mg/dL) 115 H (75-99) mg/dL Hemoglobin A1c (4.0-6.0) % Plasma Lactic Acid Karthikeyan 2.5 H* (0.7-2.0) mmol/L Magnesium 1.4 L (1.6-2.3) mg/dL Assessment and Plan (1) Diarrhea Narrative/Plan: 63-year-old female admitted with acute kidney injury dehydration secondary to microscopic colitis diarrhea status post colonoscopy March 2018. Current Visit: Yes Status: Acute Code(s): R19.7 - DIARRHEA, UNSPECIFIED SNOMED Code(s): 97723479 (2) Acute kidney injury Current Visit: Yes Status: Acute Code(s): N17.9 - ACUTE KIDNEY FAILURE, UNSPECIFIED SNOMED Code(s): 69010399 (3) Microscopic colitis Current Visit: Yes Status: Acute Code(s): K52.839 - MICROSCOPIC COLITIS, UNSPECIFIED SNOMED Code(s): 300588587 (4) Irritable bowel syndrome with diarrhea Current Visit: Yes Status: Chronic Code(s): K58.0 - IRRITABLE BOWEL SYNDROME WITH DIARRHEA SNOMED Code(s): 755260591 (5) Elevated lactic acid level Current Visit: Yes Status: Acute Code(s): R79.89 - OTHER SPECIFIED ABNORMAL FINDINGS OF BLOOD CHEMISTRY SNOMED Code(s): 7638770 Plan: 1. Patient could not afford Entocort. GI office is working with assistance to cover prescription. For now continue with Imodium 2 mg 4 times a day will give 1 time dose of 4 mg now and close observation of bowel movements daily. Patient was advised she needs take Imodium as scheduled at home even if she does not leave the house. Diet as tolerated. Thank you for this kind referral and the opportunity to participate in the care of your patient. This consultation was discussed with Dr. Wall. The impression and plan of care have been directed as dictated.
[2018-05-03 12:04] LABS: Glucose,Whole Blood 137 mg/dL (75-99)
[2018-05-03] MEDS: LOPERAMIDE 2 MG CAP PO SCH ×3 (13:39→20:55)
--- NOTE | 2018-05-03 15:11 | P.PN ---
Subjective Patient with history of microscopic colitis is admitted for increasing diarrhea C. diff was negative patient was started on Imodium patient was given prescription for budesonide. Gastroenterology was able to find a discount coupon for oral budesonide. Patient said diarrhea improved with Imodium. Had multiple episodes today morning patient's serum creatinine improved to 1.5 after IV fluids. Constitutional: Denied any fatigue denied any fever. Cardio vascular: denied any chest pain, palpitations Gastrointestinal denied any nausea vomiting Pulmonary: Denied any shortness of breath cough Neurologic denied any new focal deficits All inpatient medications were reviewed and appropriate changes in these medications as dictated in the interval history and assessment and plan. Objective - Vital Signs Vital signs: Vital Signs Temp 98.2 F 05/03/18 07:00 Pulse 79 05/03/18 07:00 Resp 16 05/03/18 07:00 BP 112/70 05/03/18 07:00 Pulse Ox 94 L 05/03/18 07:00 Intake & Output 05/02/18 05/03/18 05/03/18 18:59 06:59 18:59 Weight 72.575 kg 72.575 kg Other: Voiding Method Toilet Toilet # Voids 0 # Bowel Movements 5 1 - Exam PHYSICAL EXAMINATION: GENERAL: The patient is alert and oriented x3, not in any acute distress. Well developed, well nourished. HEENT: Pupils are round and equally reacting to light. EOMI. No scleral icterus. No conjunctival pallor. Normocephalic, atraumatic. No pharyngeal erythema. No thyromegaly. CARDIOVASCULAR: S1 and S2 present. No murmurs, rubs, or gallops. PULMONARY: Chest is clear to auscultation, no wheezing or crackles. ABDOMEN: Soft, nontender, nondistended, normoactive bowel sounds. No palpable organomegaly. MUSCULOSKELETAL: No joint swelling or deformity. EXTREMITIES: No cyanosis, clubbing, or pedal edema. NEUROLOGICAL: Gross neurological examination did not reveal any focal deficits. SKIN: No rashes. - Labs CBC & Chem 7: 05/03/18 08:37 05/03/18 08:37 Labs: Abnormal Lab Results - Last 24 Hours (Table) 05/02/18 05/02/18 05/02/18 Range/Units 15:20 15:20 18:07 Neutrophils # 7.9 H (1.3-7.7) k/uL Lymphocytes # 0.9 L (1.0-4.8) k/uL Potassium 2.7 L* (3.5-5.1) mmol/L Chloride (98-107) mmol/L BUN 27 H (7-17) mg/dL Creatinine 2.40 H (0.52-1.04) mg/dL Glucose 130 H (74-99) mg/dL POC Glucose (mg/dL) (75-99) mg/dL Hemoglobin A1c (4.0-6.0) % Plasma Lactic Acid Karthikeyan 2.7 H* (0.7-2.0) mmol/L Magnesium (1.6-2.3) mg/dL 05/02/18 05/02/18 05/02/18 Range/Units 20:01 21:12 21:12 Neutrophils # (1.3-7.7) k/uL Lymphocytes # (1.0-4.8) k/uL Potassium 3.2 L (3.5-5.1) mmol/L Chloride (98-107) mmol/L BUN (7-17) mg/dL Creatinine (0.52-1.04) mg/dL Glucose (74-99) mg/dL POC Glucose (mg/dL) 111 H (75-99) mg/dL Hemoglobin A1c 6.2 H (4.0-6.0) % Plasma Lactic Acid Karthikeyan (0.7-2.0) mmol/L Magnesium (1.6-2.3) mg/dL 05/02/18 05/03/18 05/03/18 Range/Units 21:48 07:57 08:37 Neutrophils # (1.3-7.7) k/uL Lymphocytes # (1.0-4.8) k/uL Potassium (3.5-5.1) mmol/L Chloride 113 H (98-107) mmol/L BUN 19 H (7-17) mg/dL Creatinine 1.47 H (0.52-1.04) mg/dL Glucose 125 H (74-99) mg/dL POC Glucose (mg/dL) 115 H (75-99) mg/dL Hemoglobin A1c (4.0-6.0) % Plasma Lactic Acid Karthikeyan 2.5 H* (0.7-2.0) mmol/L Magnesium 1.4 L (1.6-2.3) mg/dL 05/03/18 Range/Units 11:50 Neutrophils # (1.3-7.7) k/uL Lymphocytes # (1.0-4.8) k/uL Potassium (3.5-5.1) mmol/L Chloride (98-107) mmol/L BUN (7-17) mg/dL Creatinine (0.52-1.04) mg/dL Glucose (74-99) mg/dL POC Glucose (mg/dL) 137 H (75-99) mg/dL Hemoglobin A1c (4.0-6.0) % Plasma Lactic Acid Karthikeyan (0.7-2.0) mmol/L Magnesium (1.6-2.3) mg/dL Assessment and Plan Plan: -Acute renal failure: Prerenal azotemia secondary to severe diarrhea C. diff was negative patient has improved creatinine continue with IV fluids nephrology is managing the IV fluids -Acute on chronic diarrhea probably secondary to microscopic colitis -possible chronic kidney disease stage II to 3 from diabetic nephropathy -Type 2 diabetes mellitus: Patient will be continued on sliding scale insulin and hold off oral hypoglycemic agents -Fibromyalgia -Nicotine abuse: Counseling was provided
[2018-05-03] MEDS: CHOLESTYRAMINE (WITH SUGAR) 4 GM PACKET PO SCH (16:25)
[2018-05-03 18:10] LABS: Glucose,Whole Blood 141 mg/dL (75-99)
[2018-05-03 20:30] LABS: Glucose,Whole Blood 148 mg/dL (75-99)
[2018-05-03] MEDS: ATORVASTATIN 20 MG TAB PO SCH (20:55)
[2018-05-04] MEDS: SODIUM CHLORIDE 0.9% 1,000 ML IV SCH ×3 (05:52→21:46)
[2018-05-04 07:54] LABS: Glucose,Whole Blood 110 mg/dL (75-99)
[2018-05-04] MEDS: INSULIN ASPART 100 UNIT/ML 1 ML 10 ML VIAL SQ SCH ×4 (08:02→21:46)
[2018-05-04] MEDS: CHOLESTYRAMINE (WITH SUGAR) 4 GM PACKET PO SCH ×2 (08:38→19:36)
[2018-05-04] MEDS: LOPERAMIDE 2 MG CAP PO SCH ×4 (08:42→21:46)
--- NOTE | 2018-05-04 09:58 | P.PN ---
Subjective Progress Note Date: 05/04/18 Principal diagnosis: diarrhea Multiple nonbloody BMs last 12 hours approximate 50 ml at a time. Denies abdominal pain. Afebrile. Objective - Vital Signs Vital signs: Vital Signs Temp 97.5 F L 05/04/18 07:39 Pulse 79 05/04/18 07:39 Resp 16 05/04/18 07:39 BP 126/60 05/04/18 07:39 Pulse Ox 97 05/04/18 07:39 Intake & Output 05/03/18 05/04/18 05/04/18 18:59 06:59 18:59 Intake Total 1000 Balance 1000 Weight 72.575 kg Intake: Oral 1000 Other: # Voids 4 # Bowel Movements 8 5 - Constitutional General appearance: Present: average body habitus - EENT Eyes: Present: normal appearance Ears: bilateral: normal - Neck Neck: Present: normal ROM - Respiratory Respiratory: bilateral: CTA - Cardiovascular Rhythm: regular Heart sounds: normal: S1, S2 - Gastrointestinal General gastrointestinal: Present: soft - Neurologic Neurologic: Present: CNII-XII intact - Psychiatric Psychiatric: Present: A&O x's 3, appropriate affect - Labs CBC & Chem 7: 05/03/18 08:37 05/03/18 08:37 Labs: Abnormal Lab Results - Last 24 Hours (Table) 05/03/18 05/03/18 05/03/18 Range/Units 11:50 17:47 20:26 POC Glucose (mg/dL) 137 H 141 H 148 H (75-99) mg/dL 05/04/18 Range/Units 07:36 POC Glucose (mg/dL) 110 H (75-99) mg/dL Assessment and Plan (1) Diarrhea Narrative/Plan: 63-year-old female admitted with acute kidney injury dehydration secondary to microscopic colitis diarrhea status post colonoscopy March 2018. Current Visit: Yes Status: Acute Code(s): R19.7 - DIARRHEA, UNSPECIFIED SNOMED Code(s): 64604774 (2) Acute kidney injury Current Visit: Yes Status: Acute Code(s): N17.9 - ACUTE KIDNEY FAILURE, UNSPECIFIED SNOMED Code(s): 19269987 (3) Microscopic colitis Current Visit: Yes Status: Acute Code(s): K52.839 - MICROSCOPIC COLITIS, UNSPECIFIED SNOMED Code(s): 728199814 (4) Irritable bowel syndrome with diarrhea Current Visit: Yes Status: Chronic Code(s): K58.0 - IRRITABLE BOWEL SYNDROME WITH DIARRHEA SNOMED Code(s): 883125703 (5) Elevated lactic acid level Current Visit: Yes Status: Acute Code(s): R79.89 - OTHER SPECIFIED ABNORMAL FINDINGS OF BLOOD CHEMISTRY SNOMED Code(s): 1886316 Plan: 1. Entocort script w/coupon given. Increase Imodium 4 mg 4 times a day. Questran BID. Diet as tolerated. Assessment and plan of care discussed with Dr. Wall
[2018-05-04 10:03] LABS: Calcium 8.1 mg/dL (8.4-10.2); Magnesium 1.6 mg/dL (1.6-2.3); Potassium 3.2 mmol/L (3.5-5.1)
[2018-05-04] MEDS ORDERED: Potassium Replacement Protocol 1 EACH MISC MISCELLANE PRN (10:29)
[2018-05-04] MEDS ORDERED: Magnesium Replacement Protocol 1 EACH MISC MISCELLANE PRN (10:30)
[2018-05-04] MEDS ORDERED: POTASSIUM CHLORIDE ER 20 MEQ TAB.ER PO STA (11:02)
--- NOTE | 2018-05-04 11:04 | P.PN ---
Subjective Patient is seen in follow-up for acute kidney injury. Creatinine was 2.4 on admission and is down to 1.05 today. She continues to have diarrhea. Oral intake is fair. No vomiting. Vital signs are stable. General: The patient appeared well nourished and normally developed. HEENT: Head exam is unremarkable. Neck is without jugular venous distension. LUNGS: Lungs are clear to auscultation and percussion. Breath sounds decreased. HEART: Rate and Rhythm are regular. First and second heart sounds normal. No murmurs, rubs or gallops. ABDOMEN: Abdominal exam reveals normal bowel sounds. Non-tender and non- distended. No evidence of peritonitis. EXTREMITITES: No clubbing, cyanosis, or edema. Objective - Vital Signs Vital signs: Vital Signs Temp 97.5 F L 05/04/18 07:39 Pulse 79 05/04/18 07:39 Resp 16 05/04/18 07:39 BP 126/60 05/04/18 07:39 Pulse Ox 97 05/04/18 07:39 Intake & Output 05/03/18 05/04/18 05/04/18 18:59 06:59 18:59 Intake Total 1000 Balance 1000 Weight 72.575 kg Intake: Oral 1000 Other: # Voids 4 # Bowel Movements 8 5 - Labs CBC & Chem 7: 05/03/18 08:37 05/04/18 08:54 Labs: Abnormal Lab Results - Last 24 Hours (Table) 05/03/18 05/03/18 05/03/18 Range/Units 11:50 17:47 20:26 Potassium (3.5-5.1) mmol/L Chloride (98-107) mmol/L Creatinine (0.52-1.04) mg/dL Glucose (74-99) mg/dL POC Glucose (mg/dL) 137 H 141 H 148 H (75-99) mg/dL Calcium (8.4-10.2) mg/dL 05/04/18 05/04/18 Range/Units 07:36 08:54 Potassium 3.2 L (3.5-5.1) mmol/L Chloride 109 H (98-107) mmol/L Creatinine 1.05 H (0.52-1.04) mg/dL Glucose 151 H (74-99) mg/dL POC Glucose (mg/dL) 110 H (75-99) mg/dL Calcium 8.1 L (8.4-10.2) mg/dL Assessment and Plan Plan: Assessment: 1. Nonoliguric acute kidney injury mostly prerenal secondary to intravascular volume depletion from diarrhea and hydrochlorothiazide. Creatinine was 2.4 on admission and is 1.05 today. 2. Chronic kidney disease stage III with baseline creatinine in the range of 1- 1.3. Etiology is diabetic kidney disease. 3. Hypokalemia from GI losses as well as diuretics. 4. Hypomagnesemia secondary to diuretics and GI losses. 5. Diarrhea. She does have history of colitis. GI following. Dose of Imodium increased. 6. Diabetes mellitus. Plan: Maintain normal saline at 125 mL an hour. Replace magnesium. 2 g IV today. Replace potassium. 60 mEq total today. Avoid nephrotoxins. Repeat electrolytes in the morning.
[2018-05-04] MEDS: MAGNESIUM SULFATE-D5W PMX 1 GM in DEXTROSE/WATER 1 100ML.BAG IVPB SCH ×2 (11:18→12:26)
[2018-05-04] MEDS: POTASSIUM CHLORIDE ER 20 MEQ TAB.ER PO SCH ×2 (11:18→12:32)
[2018-05-04 11:54] LABS: Glucose,Whole Blood 129 mg/dL (75-99)
[2018-05-04 16:55] LABS: Glucose,Whole Blood 151 mg/dL (75-99)
[2018-05-04 21:02] LABS: Glucose,Whole Blood 157 mg/dL (75-99)
[2018-05-04] MEDS: ATORVASTATIN 20 MG TAB PO SCH (21:33)
[2018-05-05] MEDS: SODIUM CHLORIDE 0.9% 1,000 ML IV SCH ×2 (02:34→12:45)
[2018-05-05 07:38] LABS: Glucose,Whole Blood 111 mg/dL (75-99)
[2018-05-05 07:48] VITALS: RESP 16
[2018-05-05] MEDS: CHOLESTYRAMINE (WITH SUGAR) 4 GM PACKET PO SCH (08:04)
[2018-05-05] MEDS: LOPERAMIDE 2 MG CAP PO SCH ×2 (08:04→12:47)
[2018-05-05] MEDS: INSULIN ASPART 100 UNIT/ML 1 ML 10 ML VIAL SQ SCH ×2 (08:05→12:46)
[2018-05-05 08:29] LABS: Basophils % (A) 0 %; Eosinophils # (A) 0.2 k/uL (0-0.7); Eosinophils % (A) 3 %; HGB 13.1 gm/dL (11.4-16.0); Lymphocytes # (A) 1.5 k/uL (1.0-4.8); Lymphocytes % (A) 29 %; MCH 30.9 pg (25.0-35.0); MCHC 32.8 g/dL (31.0-37.0); Mean Platelet Volume 6.9; Monocytes # (A) 0.4 k/uL (0-1.0); Monocytes % (A) 7 %; Neutrophils % (A) 58 %; Platelet Count 209 k/uL (150-450); RBC 4.25 m/uL (3.80-5.40); RDW 14.6 % (11.5-15.5); WBC 5.2 k/uL (3.8-10.6)
--- NOTE | 2018-05-05 08:31 | P.PN ---
Subjective Patient is seen in follow-up for acute kidney injury. Creatinine was 2.4 on admission and was down to 1.05 as of yesterday. She continues to have diarrhea but improved since admission. Oral intake is fair. No vomiting. Vital signs are stable. General: The patient appeared well nourished and normally developed. HEENT: Head exam is unremarkable. Neck is without jugular venous distension. LUNGS: Lungs are clear to auscultation and percussion. Breath sounds decreased. HEART: Rate and Rhythm are regular. First and second heart sounds normal. No murmurs, rubs or gallops. ABDOMEN: Abdominal exam reveals normal bowel sounds. Non-tender and non- distended. No evidence of peritonitis. EXTREMITITES: No clubbing, cyanosis, or edema. Objective - Vital Signs Vital signs: Vital Signs Temp 98.1 F 05/05/18 07:07 Pulse 74 05/05/18 07:07 Resp 16 05/05/18 07:07 BP 121/78 05/05/18 07:07 Pulse Ox 99 05/05/18 07:07 Intake & Output 05/04/18 05/05/18 05/05/18 18:59 06:59 18:59 Intake Total 600 Balance 600 Intake: Oral 600 Other: Voiding Method Toilet # Voids 4 2 # Bowel Movements 7 8 - Labs CBC & Chem 7: 05/03/18 08:37 05/04/18 08:54 Labs: Abnormal Lab Results - Last 24 Hours (Table) 05/04/18 05/04/18 05/04/18 Range/Units 08:54 11:50 16:46 Potassium 3.2 L (3.5-5.1) mmol/L Chloride 109 H (98-107) mmol/L Creatinine 1.05 H (0.52-1.04) mg/dL Glucose 151 H (74-99) mg/dL POC Glucose (mg/dL) 129 H 151 H (75-99) mg/dL Calcium 8.1 L (8.4-10.2) mg/dL 05/04/18 05/05/18 Range/Units 21:01 07:05 Potassium (3.5-5.1) mmol/L Chloride (98-107) mmol/L Creatinine (0.52-1.04) mg/dL Glucose (74-99) mg/dL POC Glucose (mg/dL) 157 H 111 H (75-99) mg/dL Calcium (8.4-10.2) mg/dL Assessment and Plan Plan: Assessment: 1. Nonoliguric acute kidney injury mostly prerenal secondary to intravascular volume depletion from diarrhea and hydrochlorothiazide. Creatinine was 2.4 on admission and is down to 1.05 as of yesterday. 2. Chronic kidney disease stage III with baseline creatinine in the range of 1- 1.3. Etiology is diabetic kidney disease. 3. Hypokalemia from GI losses as well as diuretics. Status post placement. 4. Hypomagnesemia secondary to diuretics and GI losses. Status post placement. 5. Diarrhea. She does have history of colitis. GI following. Dose of Imodium increased. 6. Diabetes mellitus. Plan: Maintain normal saline at 125 mL an hour. Avoid nephrotoxins. Repeat electrolytes in the morning. Follow-up morning labs.
[2018-05-05 08:59] LABS: Calcium 8.1 mg/dL (8.4-10.2); Magnesium 1.4 mg/dL (1.6-2.3); Potassium 3.4 mmol/L (3.5-5.1)
[2018-05-05] MEDS ORDERED: POTASSIUM CHLORIDE ER 20 MEQ TAB.ER PO STA (09:56)
[2018-05-05] MEDS: MAGNESIUM SULFATE-D5W PMX 1 GM in DEXTROSE/WATER 1 100ML.BAG IVPB SCH ×3 (10:15→13:59)
--- NOTE | 2018-05-05 10:46 | P.PN ---
Subjective Progress Note Date: 05/05/18 Principal diagnosis: diarrhea Diarrhea improved. Denies abdominal pain. Afebrile. Anticipating discharge. Objective - Vital Signs Vital signs: Vital Signs Temp 98.1 F 05/05/18 07:07 Pulse 74 05/05/18 07:07 Resp 16 05/05/18 07:07 BP 121/78 05/05/18 07:07 Pulse Ox 99 05/05/18 07:07 Intake & Output 05/04/18 05/05/18 05/05/18 18:59 06:59 18:59 Intake Total 600 Balance 600 Intake: Oral 600 Other: Voiding Method Toilet # Voids 4 2 # Bowel Movements 7 8 - Exam General appearance: The patient is alert, oriented, in no acute distress. HET: Head is normocephalic and atraumatic. Pupils are equal and reactive. Oropharynx is clear without lesions. Neck: Supple without lymphadenopathy. Trachea midline. Heart: S1 S2. Regular rate and rhythm. Lungs: No crackles or wheezes are heard. Abdomen: Soft, nontender, nondistended with bowel sounds. No peritoneal signs. No palpable organomegaly or masses. Extremities: Normal skin color and turgor. No cyanosis, rash, ulceration, clubbing, or edema. Radial and pedal pulses are 2/4 bilaterally. Neurological: No focal deficits. Strength and sensation are grossly intact. - Labs CBC & Chem 7: 05/05/18 08:09 05/05/18 08:09 Labs: Abnormal Lab Results - Last 24 Hours (Table) 05/04/18 05/04/18 05/04/18 Range/Units 08:54 11:50 16:46 Potassium 3.2 L (3.5-5.1) mmol/L Chloride 109 H (98-107) mmol/L Creatinine 1.05 H (0.52-1.04) mg/dL Glucose 151 H (74-99) mg/dL POC Glucose (mg/dL) 129 H 151 H (75-99) mg/dL Calcium 8.1 L (8.4-10.2) mg/dL 05/04/18 05/05/18 Range/Units 21:01 07:05 Potassium (3.5-5.1) mmol/L Chloride (98-107) mmol/L Creatinine (0.52-1.04) mg/dL Glucose (74-99) mg/dL POC Glucose (mg/dL) 157 H 111 H (75-99) mg/dL Calcium (8.4-10.2) mg/dL Assessment and Plan (1) Diarrhea Narrative/Plan: 63-year-old female admitted with acute kidney injury dehydration secondary to microscopic colitis diarrhea status post colonoscopy March 2018. Diarrhea improved. Current Visit: Yes Status: Acute Code(s): R19.7 - DIARRHEA, UNSPECIFIED SNOMED Code(s): 12548757 (2) Acute kidney injury Current Visit: Yes Status: Acute Code(s): N17.9 - ACUTE KIDNEY FAILURE, UNSPECIFIED SNOMED Code(s): 85567693 (3) Microscopic colitis Current Visit: Yes Status: Acute Code(s): K52.839 - MICROSCOPIC COLITIS, UNSPECIFIED SNOMED Code(s): 361546564 (4) Irritable bowel syndrome with diarrhea Current Visit: Yes Status: Chronic Code(s): K58.0 - IRRITABLE BOWEL SYNDROME WITH DIARRHEA SNOMED Code(s): 073281234 (5) Elevated lactic acid level Current Visit: Yes Status: Acute Code(s): R79.89 - OTHER SPECIFIED ABNORMAL FINDINGS OF BLOOD CHEMISTRY SNOMED Code(s): 2890533 Plan: 1. Endocort script w/coupon given. Increase Imodium 4 mg 4 times a day. Agreeable for discharge. Diet as tolerated. RTO 3-4 weeks. Assessment and plan of care discussed with Dr. Wall
[2018-05-05] MEDS ORDERED: POTASSIUM CHLORIDE ER 20 MEQ TAB.ER PO ONE (12:00)
[2018-05-05 12:09] LABS: Glucose,Whole Blood 145 mg/dL (75-99)
[2018-05-05 15:26] LABS: Calcium 8.1 mg/dL (8.4-10.2); Magnesium 2.5 mg/dL (1.6-2.3); Potassium 4.2 mmol/L (3.5-5.1)
[2018-05-05 16:13] VITALS: BP 123/75; PULSE 87; TEMP 98.3
--- NOTE | 2018-05-06 01:20 | P.PN ---
Subjective Progress Note Date: 05/04/18 Hospital course: Patient with history of microscopic colitis is admitted for increasing diarrhea C. diff was negative patient was started on Imodium patient was given prescription for budesonide. Gastroenterology was able to find a discount coupon for oral budesonide. Patient said diarrhea improved with Imodium. Had multiple episodes today morning patient's serum creatinine improved to 1.5 after IV fluids. 05/04/2018 maintained on IV fluid hydration in the 125 MLS per hour . Potassium 3.2, magnesium 1.6,both being supplemented .Diarrhea persists-small amounts, denies nausea or vomiting. Creatinine improving, down to 1.05. Denies lightheadedness dizziness or focal deficits. Denies chest pain, palpitations or increased shortness of breath. Objective - Vital Signs Vital signs: Vital Signs Temp 99.4 F 05/04/18 22:40 Pulse 82 05/04/18 22:40 Resp 17 05/04/18 22:40 BP 131/84 05/04/18 22:40 Pulse Ox 95 05/04/18 22:40 Intake & Output 05/04/18 05/04/18 05/05/18 06:59 18:59 06:59 Intake Total 600 Balance 600 Intake: Oral 600 Other: Voiding Method Toilet # Voids 4 # Bowel Movements 5 7 - Exam GENERAL: The patient is alert and oriented x3, not in any acute distress. Well developed, well nourished. HEENT: Pupils are round and equally reacting to light. EOMI. No scleral icterus. No conjunctival pallor. Normocephalic, atraumatic. No pharyngeal erythema. No thyromegaly. CARDIOVASCULAR: S1 and S2 present. No murmurs, rubs, or gallops. PULMONARY: Chest is clear to auscultation, no wheezing or crackles. ABDOMEN: Soft, nontender, nondistended, normoactive bowel sounds. No palpable organomegaly. MUSCULOSKELETAL: No joint swelling or deformity. EXTREMITIES: No cyanosis, clubbing, or pedal edema. NEUROLOGICAL: Gross neurological examination did not reveal any focal deficits. SKIN: No rashes. - Labs CBC & Chem 7: 05/05/18 08:09 05/05/18 14:56 Labs: Abnormal Lab Results - Last 24 Hours (Table) 05/04/18 05/04/18 05/04/18 Range/Units 07:36 08:54 11:50 Potassium 3.2 L (3.5-5.1) mmol/L Chloride 109 H (98-107) mmol/L Creatinine 1.05 H (0.52-1.04) mg/dL Glucose 151 H (74-99) mg/dL POC Glucose (mg/dL) 110 H 129 H (75-99) mg/dL Calcium 8.1 L (8.4-10.2) mg/dL 05/04/18 05/04/18 Range/Units 16:46 21:01 Potassium (3.5-5.1) mmol/L Chloride (98-107) mmol/L Creatinine (0.52-1.04) mg/dL Glucose (74-99) mg/dL POC Glucose (mg/dL) 151 H 157 H (75-99) mg/dL Calcium (8.4-10.2) mg/dL Assessment and Plan Assessment: -Acute renal failure: Prerenal azotemia secondary to severe diarrhea.C. diff negative -Acute on chronic diarrhea probably secondary to microscopic colitis -possible chronic kidney disease stage II to 3 from diabetic nephropathy -Type 2 diabetes mellitus -Fibromyalgia -Nicotine abuse: Counseling was provided Plan: Continue current medication regime ,monitoring and symptomatic treatment. Close monitoring of electrolytes, renal function with repeat labs ordered for a.m. IV fluid management as per nephrology. Imodium increased , Questran . Patient Has Entocort RX with coupon from GI. Increased as tolerated. Discharge planning in progress for tomorrow. The impression and plan of care has been dictated as directed. : I performed a history and examination of this patient, discussed the same with the dictator. I agree with the dictator's note ,documented as a scribe. Any additional findings or plans will be noted.
--- NOTE | 2018-05-06 01:26 | P.DS ---
Providers Date of admission: 05/02/18 16:49 Expected date of discharge: 05/05/18 Attending physician: Virgil Holman Consults: 05/02/18 17:55 Consult Physician Routine Consulting Provider: Federico Wall Consult Reason/Comments: diarrhea Do you want consulting provider notified?: Yes 05/02/18 17:57 Consult Physician Routine Consulting Provider: Junior Rutledge Consult Reason/Comments: nadine Do you want consulting provider notified?: Yes [facility] Course: Final Diagnoses: -Acute renal failure: Prerenal azotemia secondary to severe diarrhea.C. diff negative -Acute on chronic diarrhea probably secondary to microscopic colitis, improved -possible chronic kidney disease stage II to 3 from diabetic nephropathy -Type 2 diabetes mellitus -Fibromyalgia -Nicotine abuse: Counseling provided Hospital course:Patient with history of microscopic colitis is admitted for increasing diarrhea C. diff was negative patient was started on Imodium patient was given prescription for budesonide. Gastroenterology was able to find a discount coupon for oral budesonide. Patient said diarrhea improved with Imodium. Had multiple episodes today morning patient's serum creatinine improved to 1.5 after IV fluids. Evaluated by nephrology and GI. Maintained on IV fluid hydration, received electrolyte supplements, Questran, Imodium. Significant clinical improvement. Cleared by both nephrology and GI for discharge. Patient is being discharged home in a stable condition with guarded prognosis. GENERAL: The patient is alert and oriented x3, not in any acute distress. CARDIOVASCULAR: S1 and S2 present. No murmurs, rubs, or gallops. PULMONARY: Chest is clear to auscultation, no wheezing or crackles. ABDOMEN: Soft, nontender, nondistended, normoactive bowel sounds. No palpable organomegaly. NEUROLOGICAL: Gross neurological examination did not reveal any focal deficits. SKIN: No rashes. The impression and plan of care has been dictated as directed. : I performed a history and examination of this patient, discussed the same with the dictator. I agree with the dictator's note ,documented as a scribe. Any additional findings or plans will be noted. Time taken: 35 minutes Patient Condition at Discharge: Stable Plan - Discharge Summary New Discharge Prescriptions: New Loperamide [Imodium] 4 mg PO QID #240 capsule Cholestyramine (with Sugar) [Questran Packet] 4 gm PO BID@1000,1800 #60 packet Magnesium Oxide [Mag-Ox] 400 mg PO DAILY #30 tab Continue Simvastatin [Zocor] 40 mg PO HS Allopurinol [Zyloprim] 300 mg PO HS sitaGLIPtin PHOS/metFORMIN HCL [Janumet 50-1,000 mg Tablet] 1 tab PO BID Discontinued Hydrochlorothiazide [Hydrodiuril] 25 mg PO HS Discharge Medication List Allopurinol [Zyloprim] 300 mg PO HS 06/11/16 [History] Simvastatin [Zocor] 40 mg PO HS 06/11/16 [History] sitaGLIPtin PHOS/metFORMIN HCL [Janumet 50-1,000 mg Tablet] 1 tab PO BID [History] Cholestyramine (with Sugar) [Questran Packet] 4 gm PO BID@1000,1800 #60 packet 05/05/18 [Rx] Loperamide [Imodium] 4 mg PO QID #240 capsule 05/05/18 [Rx] Magnesium Oxide [Mag-Ox] 400 mg PO DAILY #30 tab 05/05/18 [Rx] Follow up Appointment(s)/Referral(s): Ari Cristina MD [Primary Care Provider] - 1 Week Federico Wall MD [STAFF PHYSICIAN] - 3 Weeks Ambulatory/Diagnostic Orders: Basic Metabolic Panel [LAB.AMB] Time Frame: 3 Days, Location: None Selected Patient Instructions/Handouts: Acute Kidney Injury (DC), Colitis (ED) Activity/Diet/Wound Care/Special Instructions: Recheck magnesium and potassium levels pending Endort RX with coupon given to Pt as per GI Diet: Consistent carb Accu-Cheks before meals and at bedtime, maintain log and take to follow-up visit with PCP for further recommendations Discharge Disposition: HOME SELF-CARE
[2018-05-06] MEDS ORDERED: MAGNESIUM OXIDE 400 MG TAB PO SCH (09:00)
== END 2018-05-05 16:10 | disposition home or self-care (01) | DRG 392 ==
LOC: EC 13:38 → 4MS4W 16:49
PROVIDERS: ADMIT Internal Medicine; ATTEND Internal Medicine
DX: K52.839 Microscopic colitis, unspecified (principal); N17.9 Acute kidney failure, unspecified; E11.22 Type 2 diabetes mellitus with diabetic chronic kidney disease; E83.42 Hypomagnesemia; E86.9 Volume depletion, unspecified; E87.6 Hypokalemia; F17.200 Nicotine dependence, unspecified, uncomplicated; M79.7 Fibromyalgia; N18.3 Chronic kidney disease, stage 3 (moderate); Z71.6 Tobacco abuse counseling; T50.2X5A Adverse effect of carbonic-anhydrase inhibitors, benzothiadiazides and other diuretics, initial encounter; Z79.84 Long term (current) use of oral hypoglycemic drugs; Z82.0 Family history of epilepsy and other diseases of the nervous system; Z82.49 Family history of ischemic heart disease and other diseases of the circulatory system; Z83.3 Family history of diabetes mellitus; Z85.820 Personal history of malignant melanoma of skin; Z79.899 Other long term (current) drug therapy; Z88.1 Allergy status to other antibiotic agents; Z88.8 Allergy status to other drugs, medicaments and biological substances; Z90.49 Acquired absence of other specified parts of digestive tract
CPT/HCPCS: 36415; 80048; 80053; 83036; 83605; 83735; 84132; 85025; 85027; 87324; 96361; 96365; 99284

== ENCOUNTER → 2018-06-29 | Outpatient (CLI) | payer BC ==
--- NOTE | 2018-06-30 07:36 | US ---
EXAMINATION TYPE: US kidneys/renal and bladder DATE OF EXAM: 06/29/2018 COMPARISON: NONE CLINICAL HISTORY: N17.9 Acute Kidney Injury. EXAM MEASUREMENTS: Right Kidney: 9.7 x 4.7 x 4.2 cm Left Kidney: 10.8 x 5.0 x 3.9 cm Right Kidney: lower pole solid mass mass measures 2.2 x 2.5 x 2.3 cm, small cystic area also seen. Left Kidney: multiple small cysts, largest measures 0.9 x 0.8 x 0.8 cm Bladder: wnl Bilateral Jets seen: Yes Incidental finding of large cystic mass right adnexa, measures 4.6 x 4.5 x 5.9 cm. There is no evidence for hydronephrosis at this point in time. No nephrolithiasis is seen. The uri nary bladder is anechoic. Bilateral ureteral jets are seen. Lower pole level right kidney there is partially exophytic hypoechoic 2.5 cm ball-shaped lesion that appears to have some vascularity worrisome for solid mass or neoplasm. Adjacent to bladder in the right pelvis there is complex cyst or cystic mass measuring 4.6 x 4.5 cm w ith internal septation. IMPRESSION: 1. Cannot exclude solid mass or neoplasm lower pole level right kidney. Advise follow-up renal protoc ol contrast-enhanced CT or MRI to further evaluate. 2. There is 5.9 cm cystic mass or neoplasm right pelvis presumed of ovarian etiology, advise gynecolo gy oncology referral and appropriate lab/imaging workup. A Yellow level critical message alert has been initiated for Julia Martinez MD via the [employer] Critical Results System on 06/30/2018 7:34 AM. This message alert has been sent to Julia Martinez MD via the preferences provided by the clinician for the receipt of Radiology Critical Findings. Message ID [id number].
== END | disposition home or self-care (01) ==
LOC: RADUSWWP 16:05
PROVIDERS: ATTEND Internal Medicine Nephrology
DX: N17.9 Acute kidney failure, unspecified (principal)
CPT/HCPCS: 76770

== ENCOUNTER → 2018-07-19 | Outpatient (CLI) | payer BC ==
--- NOTE | 2018-07-20 09:36 | CT ---
EXAMINATION TYPE: CT abdomen pelvis wo/w con DATE OF EXAM: 07/19/2018 COMPARISON: None INDICATION: Right side renal lesion. DLP: 1489.1 mGycm, Automated exposure control for dose reduction was used. CONTRAST: 80ml mL of Isovue 300. Study performed with Oral Contrast TECHNIQUE: Axial images were obtained from above the diaphragm to the pubic rami in the axial plane a t 5 mm thick sections. Reconstructed images are reviewed on the computer in the coronal plane. FINDINGS: Limited CT sections are obtained the lung bases. The lung bases are clear. CT ABDOMEN: Liver: Normal Spleen: Normal Pancreas: Normal Adrenal glands: Left adrenal gland is low density measuring -27 Hounsfield units and thickened at 2.2 cm. 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 The right adrenal gland is unremarkable. Gallbladder: Surgically absent Kidneys: There is a ill-defined hypodense mass within the inferior right kidney measuring 2.6 cm in s ize and 30 Hounsfield units. On delayed images this measures 23 Hounsfield units.. No hydronephrosis is present. Tiny cortical renal cysts present on the mid lateral right kidney. Left kidney appears to have a few tiny cortical renal cysts as well. Findings correspond to the ultrasound of 06/29/2018 within the lower right kidney pole. Neoplasm should be considered. This does not appear to be a compl ex cyst based on the ultrasound findings. Aorta: Vascular calcification is within the aorta. Inferior vena cava: Normal. CT PELVIS: Loops of bowel within the abdomen and pelvis are normal. There are loops of bowel which are incom pletely distended or lack oral contrast limiting their evaluation. Appendix: Normal as visualized. Urinary bladder: Normal. Genitourinary structures: Multiple cysts or on the bilateral ovaries. The largest measures 3.4 cm on the right ovary. Monitoring and follow-up with pelvic ultrasound is recommended. The should be follow ed to resolution. Uterus appears unremarkable. No free fluid is within the pelvis. Osseous structures: No suspicious lytic or sclerotic lesions. IMPRESSIONS: 1. 2.6 cm mass inferior pole right kidney suspicious for neoplasm. 2. 2.2 cm left adrenal gland with low Hounsfield units more suggestive for angiomyolipoma. Close foll ow-up is recommended. 3. Multiple bilateral enlarged ovarian cysts, larger on the right. Monitoring and follow-up with pelv ic ultrasound is recommended. Ovarian neoplasm is not excluded on the basis of this exam.
== END | disposition home or self-care (01) ==
LOC: RADCTMAIN 15:39
PROVIDERS: ATTEND Urology
DX: N28.89 Other specified disorders of kidney and ureter (principal); N83.202 Unspecified ovarian cyst, left side; N83.201 Unspecified ovarian cyst, right side; Z88.1 Allergy status to other antibiotic agents; Z88.5 Allergy status to narcotic agent; Z88.8 Allergy status to other drugs, medicaments and biological substances
CPT/HCPCS: 82565; 84520; 74178; 36415; Q9967

== ENCOUNTER → 2018-11-16 | Outpatient (CLI) | payer BC ==
[2018-11-16 13:55] LABS: Basophils % (A) 0 %; Eosinophils # (A) 0.2 k/uL (0-0.7); Eosinophils % (A) 3 %; HGB 13.6 gm/dL (11.4-16.0); Lymphocytes # (A) 1.5 k/uL (1.0-4.8); Lymphocytes % (A) 17 %; MCH 30.7 pg (25.0-35.0); MCHC 32.4 g/dL (31.0-37.0); Monocytes # (A) 0.4 k/uL (0-1.0); Monocytes % (A) 5 %; Neutrophils # (A) 6.2 k/uL (1.3-7.7); Neutrophils % (A) 74 %; Platelet Count 206 k/uL (150-450); RBC 4.42 m/uL (3.80-5.40); RDW 14.4 % (11.5-15.5); WBC 8.4 k/uL (3.8-10.6)
[2018-11-16 14:06] LABS: Calcium 9.5 mg/dL (8.4-10.2); Potassium 4.9 mmol/L (3.5-5.1)
== END | disposition home or self-care (01) ==
LOC: LABPAT 12:35
PROVIDERS: ATTEND Urology
DX: Z01.812 Encounter for preprocedural laboratory examination (principal); C64.1 Malignant neoplasm of right kidney, except renal pelvis; E11.9 Type 2 diabetes mellitus without complications
CPT/HCPCS: 36415; 80048; 85025; 87086

== ENCOUNTER 2018-11-23 10:50 | Inpatient (IN) | payer BC ==
--- NOTE | 2018-11-22 21:04 | P.GSHP ---
History of Present Illness H&P Date: 11/22/18 63 yo female with mild renal insufficiency who had a renal us/ ct scan showing a 3 cm atypical rt renal mass The housnfield units were thirty and the visual appearance was worrisome for a renal cell ca, SHe was seen by dr Wilder who will do a partial right nephrectomy via robotic laparoscopy The risks alternatives and complications have been discussed, - Constitutional Constitutional: Denies chills, Denies fever - EENT Eyes: denies blurred vision, denies pain Ears, nose, mouth and throat: Denies headache, Denies sore throat - Cardiovascular Cardiovascular: Denies chest pain, Denies shortness of breath - Respiratory Respiratory: Denies cough, Denies 7 - Gastrointestinal Gastrointestinal: Denies abdominal pain, Denies diarrhea, Denies nausea, Denies vomiting - Genitourinary (Female) Genitourinary: Denies dysuria, Denies hematuria - Genitourinary (Male) Genitourinary: Denies dysuria, Denies hematuria - Musculoskeletal Musculoskeletal: Denies myalgias - Integumentary Integumentary: Denies pruritus, Denies rash - Neurological Neurological: Denies numbness, Denies weakness - Psychiatric Psychiatric: Denies anxiety, Denies depression - Endocrine Endocrine: Denies fatigue, Denies weight change Past Medical History Past Medical History: Cancer, Diabetes Mellitus, Fibromyalgia, Hyperlipidemia, Hypertension, Renal Disease Additional Past Medical History / Comment(s): colitis w/DIARRHEA., MELANOMA, STATES Lingual Tonsilar Tissue, MASS AT BASE OF TONGUE -FEELS LIKE SHE HAS SOMETHING IN HER THROAT-sees ENT every 6 months to monitor History of Any Multi-Drug Resistant Organisms: None Reported Past Surgical History: Cholecystectomy, Orthopedic Surgery, Tonsillectomy Additional Past Surgical History / Comment(s): LEFT ROTATOR CUFF, RT KNEE SURGERY, SKIN CA, MARIO EAR SURGERY-stapedectomy mario Past Anesthesia/Blood Transfusion Reactions: Postoperative Nausea & Vomiting (PONV) Smoking Status: Current every day smoker - Past Family History Mother Family Medical History: No Reported History, Dementia Additional Family Medical History / Comment(s): PARKINSONS Brother(s) Family Medical History: Deep Vein Thrombosis (DVT), Myocardial Infarction (ID), Vascular Disorder Additional Family Medical History / Comment(s): has had mario. carotid endartectomies Father Family Medical History: Diabetes Mellitus Medications and Allergies Home Medications Medication Instructions Recorded Confirmed Type Allopurinol [Zyloprim] 300 mg PO HS 06/11/16 11/15/18 History Simvastatin [Zocor] 40 mg PO HS 06/11/16 11/15/18 History sitaGLIPtin PHOS/metFORMIN HCL 1 tab PO BID 06/11/16 11/15/18 History [Janumet 50-1,000 mg Tablet] Enalapril [Vasotec] 10 mg PO DAILY 11/15/18 11/15/18 History Loperamide [Imodium] 4 mg PO QID PRN 11/15/18 11/15/18 History Magnesium Oxide [Mag-Ox] 500 mg PO DAILY 11/15/18 11/15/18 History Multivit-Min/Iron/Folic/Lutein 1 each PO DAILY 11/15/18 11/15/18 History [Centrum Silver Women Tablet] Ondansetron [Zofran] 4 mg PO Q8HR PRN 11/15/18 11/15/18 History Zolpidem [Ambien] 10 mg PO HS PRN 11/15/18 11/15/18 History Mometasone Furoate 15 gm TP DAILY PRN 11/21/18 11/21/18 History Allergies Allergy/AdvReac Type Severity Reaction Status Date / Time atropine [From Lomotil] Allergy Swelling Verified 11/15/18 10:58 diphenoxylate [From Lomotil] Allergy Swelling Verified 11/15/18 10:58 codeine AdvReac Unknown Nausea & Verified 11/15/18 10:58 Vomiting levofloxacin [From Levaquin] AdvReac Nausea & Verified 11/15/18 10:58 Vomiting metronidazole [From Flagyl] AdvReac Nausea & Verified 11/15/18 10:58 Vomiting Surgical - Exam - General well developed, well nourished, no distress - Eyes PERRL - ENT no hearing loss - Neck no masses - Respiratory normal expansion, normal respiratory effort - Cardiovascular Rhythm: regular - Abdomen Abdomen: soft, non tender - Integumentary no rash, no growths - Neurologic normal coordination, normal sensation - Musculoskeletal normal gait, normal posture - Psychiatric oriented to time, oriented to person, oriented to place, speech is normal, memory intact Results - Imaging CT scan - abdomen: report reviewed, image reviewed CT scan - pelvis: report reviewed, image reviewed Assessment and Plan Assessment: Impression: Rt renal mass Plan; Robotic assisted laparoscopic partial nephrectomy by DR Amauri Wilder
[~2018-11-23 10:50] MED LIST changes: +DEXAMETHASONE SOD PHOSPHATE 10 MG/ML 1 ML VIAL IV ONE; -LACTATED RINGERS 1,000 ML IV SCH; -LIDOCAINE 1% 20 ML VIAL (10MG/ML) FOR IV START INTRADERMA PRN; +MIDAZOLAM 2 MG/2 ML VIAL IV PRN; +ONDANSETRON 4 MG/2 ML VIAL IVP ONE; +fentaNYL (PF) 50 MCG/ML 2 ML AMP IV PRN
[2018-11-23] MEDS: LACTATED RINGERS 1,000 ML IV SCH ×2 (11:40→11:55)
[2018-11-23] MEDS ORDERED: LIDOCAINE 1% 20 ML VIAL (10MG/ML) FOR IV START INTRADERMA ONE ×3 (11:40→11:57)
[2018-11-23 11:50] LABS: Glucose,Whole Blood 108 mg/dL (75-99)
[2018-11-23] MEDS ORDERED: ROCURONIUM BROMIDE 10 MG/ML 10 ML VIAL IV ONE (12:29)
[2018-11-23] MEDS ORDERED: GLYCOPYRROLATE 0.2 MG/ML 2 ML VIAL ONE (12:29)
[2018-11-23] MEDS ORDERED: NEOSTIGMINE 1 MG/ML 10 ML VIAL ONE (12:29)
[2018-11-23] MEDS ORDERED: LIDOCAINE 1% INJ 10MG/ML (20 ML MDV) ONE (12:29)
[2018-11-23] MEDS ORDERED: SUCCINYLCHOLINE CHLORIDE 100 MG/5 ML SYR IV ONE (12:29)
[2018-11-23] MEDS ORDERED: PROPOFOL 10 MG/ML 20 ML VIAL IV ONE (12:29)
[2018-11-23] MEDS ORDERED: fentaNYL (PF) 50 MCG/ML 2 ML AMP ONE (12:29)
[2018-11-23] MEDS ORDERED: BUPIVACAINE-EPI 0.5%-1:200,000 10 ML VIAL SQ ONE (13:42)
[2018-11-23] MEDS ORDERED: ONDANSETRON 4 MG/2 ML VIAL IVP PRN (14:02)
[2018-11-23] MEDS ORDERED: HYDROmorphone 1 MG/ML 1 ML SYRINGE IVP PRN (14:02)
--- NOTE | 2018-11-23 14:08 | P.OP ---
Date of Procedure: 11/23/18 Preoperative Diagnosis: right renal mass Postoperative Diagnosis: right renal mass extensive intra peritoneal adhesions Procedure(s) Performed: Diagnostic laparoscopy extensive lysis of bowel and omental adhesions Anesthesia: MARISELA Surgeon: Sushma Wilder Estimated Blood Loss (ml): 10 IV fluids (ml): 700 Urine output (ml): 100 Pathology: none sent Condition: stable Disposition: PACU Indications for Procedure: right renal mass suspicious for malignancy Operative Findings: upon inspection of the peritoneal space, it was seen that there were extensive adhesions. no normal peritoneal cavity was seen. Adhesions were also seen between the liver and the bowels and between the liver and the kidney. After considerable time spent in adhesiolysis , a decision was made to abort the procedure as we were unable to drop the colon to proceed with the surgery and place either the liver retractor port or the assistant county attorney port. I discussed the findings with her sister and we decided to approach the tumor in a retropeitoneal fashion in 2-3 weeks The gas was expressed from the body and the incisions were closed with 4-0 monocryl. Local anesthesia was used in the fascia and skin Description of Procedure: Katja was taken to the OR and administered ETT GA and placed in right lateral position with all pressure points padded. She was secured to the table and parts were prepped and draped. A verress needle was used to gain access to the peritoneum and the peritoneum was insufflated to 20 mm hg. A 8 mm port was placed in the right upper quadrant and upon inspection of the pe ritoneal space, it was seen that there were extensive adhesions. no normal peritoneal cavity was seen. An addition port was placed in the right lower quadrant and upon using the 0 degree lens, the peritoneal space was seen and colonic adhesions were extensive all along the anterior and medial abdominal wall. 60 minutes were spent doing adhesiolysis with the lap scissors and boive. Adhesions were also seen between the liver and the bowels and between the liver and the kidney. After considerable time spent in adhesiolysis , a decision was made to abort the procedure as we were unable to drop the colon to proceed with the surgery and place either the liver retractor port or the assistant county attorney port. I discussed the findings with her sister and we decided to approach the tumor in a retropeitoneal fashion in 2-3 weeks The gas was expressed from the body and the incisions were closed with 4-0 monocryl. Local anesthesia was used in the fascia and skin
--- NOTE | 2018-11-23 15:16 | XR ---
EXAMINATION TYPE: XR chest 1V portable DATE OF EXAM: 11/23/2018 COMPARISON: NONE HISTORY: ET tube placement TECHNIQUE: Single frontal view of the chest is obtained. FINDINGS: Endotracheal tube is seen at the level of the clavicles approximately 5.3 cm from the yohana na. There is no focal air space opacity, pleural effusion, or pneumothorax seen. The cardiac silhoue tte size is within normal limits. The osseous structures are intact. Free air is seen under the rig ht hemidiaphragm. IMPRESSION: Endotracheal tube in appropriate position. Free air under the right hemidiaphragm may related to recent procedure given the exam was taken in th e OR. If the patient did not have abdominal surgery, further evaluation may be obtained with dedicate d abdominal series.
--- NOTE | 2018-11-23 16:39 | XR ---
EXAMINATION TYPE: XR chest 1V portable DATE OF EXAM: 11/23/2018 COMPARISON: 11/23/2018 HISTORY: Intubated TECHNIQUE: Single frontal view of the chest is obtained. FINDINGS: Endotracheal tube is 1.5 cm from the genaro. Lungs are clear of consolidation. There is no heart failure. There is coarsening of interstitial markings. There are chest leads. IMPRESSION: Mild increased interstitial density in the right lung compared to old exam. No heart italia lure. Endotracheal tube is low.
[2018-11-23] MEDS ORDERED: LORazepam 2 MG/ML INJ IV ONE (16:43)
--- NOTE | 2018-11-23 17:36 | XR ---
EXAMINATION TYPE: XR chest 1V portable DATE OF EXAM: 11/23/2018 COMPARISON: Today HISTORY: Check tube placement TECHNIQUE: Single frontal view of the chest is obtained. FINDINGS: Endotracheal tube is 2.6 cm from the genaro. Heart is normal. There is nasogastric tube wi th the tip in the distal stomach. There is some mild infiltrate behind the heart in the left lower lo be.. There is no heart failure. No pneumothorax. IMPRESSION: There is new mild infiltrate left lower lobe compared to exam one hour ago.. Minimal ple ural reaction at the right lung base.
--- NOTE | 2018-11-23 17:38 | P.CNPUL ---
History of Present Illness Consult date: 11/23/18 Chief complaint: Respiratory failure History of present illness: 63-year-old female patient with mild chronic kidney disease/renal insufficiency was found to have a 3 cm atypical right renal mass. This was worrisome for renal cell carcinoma. The patient was taken to the operating room for a robotic-assisted nephrectomy partial. The procedure itself was not successful as the surgeon and count is significant amount of adhesions. There was extensive intraperitoneal adhesions and it was not possible to complete the procedure. Estimated blood loss was 10 mL and the total of 700 mL's of IV fluid was given. I/the procedure was aborted. The patient was extubated and the patient was brought in to the recovery. Following arrival to the recovery the patient was found to be short of breath. On examination the patient was not moving much air and she was quite weak and was decided the patient was still under the effect this sedative medication and possibly paralytics. The patient was reintubated. The patient was kept on mechanical ventilator and subsequently another trial of extubation was done. Similar lesions was encountered and the patient was unable to generate enough tidal volume. She was weak in her arms. She had a weak cough. At the same time there was a concern of a throat mass although this was not clear based on description was given by the anesthesiologist who intubated the patient. The patient is currently in the intensive care unit intubated on a mechanical ventilator. She is an assist- control mode of ventilation at the rate of 10 with a tidal volume of 550 and FiO2 of 70% with a PEEP of 5. She is awake, however she is quite weak. She has a weak grasp. She is unable to raise the head of the bed. I'm not aware of any other history of neuromuscular weakness in this patient. No history of myasthe melyssa gravis. No history of any reactions to once paralytics or muscle relaxants. During the intubation process of the patient was given succinylcholine and Ativan. No labs are available. Chest x-ray post intubation shows adequate positioning of ET tube 2 cm above the genaro. There is a limited at under the right hemidiaphragm which is probably related to postsurgical changes. No acute home and infiltrates pH is a chronic smoker in she has COPD.. Blood pressure is around 27 the mechanical ventilator. No significant bronchospasm wheezing. Blood gases to follow.. The patient is hemodynamically stable. Review of Systems ROS unobtainable: due to endotracheal tube Past Medical History Past Medical History: Cancer, COPD, Diabetes Mellitus, Fibromyalgia, Hyperlipidemia, Hypertension, Renal Disease Additional Past Medical History / Comment(s): colitis w/DIARRHEA., MELANOMA, STATES Lingual Tonsilar Tissue, MASS AT BASE OF TONGUE -FEELS LIKE SHE HAS SOMETHING IN HER THROAT-sees ENT every 6 months to monitor History of Any Multi-Drug Resistant Organisms: None Reported Past Surgical History: Cholecystectomy, Orthopedic Surgery, Tonsillectomy Additional Past Surgical History / Comment(s): LEFT ROTATOR CUFF, RT KNEE SURGERY, SKIN CA, MARIO EAR SURGERY-stapedectomy mario Past Anesthesia/Blood Transfusion Reactions: Postoperative Nausea & Vomiting (PONV) Smoking Status: Current every day smoker - Past Family History Mother Family Medical History: No Reported History, Dementia Additional Family Medical History / Comment(s): PARKINSONS Brother(s) Family Medical History: Deep Vein Thrombosis (DVT), Myocardial Infarction ([place]), Vascular Disorder Additional Family Medical History / Comment(s): has had mario. carotid endartectomies Father Family Medical History: Diabetes Mellitus Medications and Allergies Home Medications Medication Instructions Recorded Confirmed Type Allopurinol [Zyloprim] 300 mg PO HS 06/11/16 11/23/18 History Simvastatin [Zocor] 40 mg PO HS 06/11/16 11/23/18 History sitaGLIPtin PHOS/metFORMIN HCL 1 tab PO BID 06/11/16 11/23/18 History [Janumet 50-1,000 mg Tablet] Enalapril [Vasotec] 10 mg PO DAILY 11/15/18 11/23/18 History Loperamide [Imodium] 4 mg PO QID PRN 11/15/18 11/23/18 History Magnesium Oxide [Mag-Ox] 500 mg PO DAILY 11/15/18 11/23/18 History Multivit-Min/Iron/Folic/Lutein 1 tab PO DAILY 11/15/18 11/23/18 History [Centrum Silver Women Tablet] Ondansetron [Zofran] 4 mg PO Q8HR PRN 11/15/18 11/23/18 History Zolpidem [Ambien] 10 mg PO HS PRN 11/15/18 11/23/18 History Mometasone Furoate 1 applic TOPICAL DAILY PRN 11/21/18 11/23/18 History Allergies Allergy/AdvReac Type Severity Reaction Status Date / Time atropine [From Lomotil] Allergy Swelling Verified 11/23/18 16:35 diphenoxylate [From Lomotil] Allergy Swelling Verified 11/23/18 16:35 codeine AdvReac Unknown Nausea & Verified 11/23/18 16:35 Vomiting levofloxacin [From Levaquin] AdvReac Nausea & Verified 11/23/18 16:35 Vomiting metronidazole [From Flagyl] AdvReac Nausea & Verified 11/23/18 16:35 Vomiting Physical Exam Vitals: Vital Signs Temp Pulse Resp BP Pulse Ox 11/23/18 16:23 108 H 10 L 156/73 100 11/23/18 16:13 90 12 152/66 11/23/18 15:40 93 14 130/62 100 11/23/18 15:30 91 22 132/59 100 11/23/18 15:00 93 12 135/64 100 11/23/18 14:45 92 22 107/58 97 11/23/18 14:30 100 22 155/67 96 11/23/18 14:25 102 H 22 201/83 96 11/23/18 14:00 97.0 F L 93 16 98/62 94 L 11/23/18 11:20 98.6 F 87 16 147/76 98 Intake and Output 11/23/18 11/23/18 11/23/18 06:59 14:59 22:59 Intake Total 1250 Output Total 75 Balance 1175 Intake: IV 1250 Output: Urine 70 Estimated Blood Loss 5 Gen. appearance, comfortable intubated on a mechanical ventilator. Head exam was generally normal. There was no scleral icterus or corneal arcus. Mucous membranes were moist. Neck was supple and without jugular venous distension, thyromegaly, or carotid bruits. Carotids were easily palpable bilaterally. There was no adenopathy. The patient is a orogastric and orotracheal tube are both of them are in place. The patient has no neck masses on palpation. No lymphadenopathy in supraclavicular area. No neck stiffness. Lungs sounds are diminished bilaterally along with scattered rhonchi and scattered expiratory wheezes. Cardiac exam revealed the PMI to be normally situated and sized. The rhythm was regular and no extrasystoles were noted during several minutes of auscultation. The first and second heart sounds were normal and physiologic splitting of the second heart sound was noted. There were no murmurs, rubs, clicks, or gallops. Abdominal exam revealed normal bowel sounds. The abdomen was soft, non-tender, and without masses, organomegaly, or appreciable enlargement of the abdominal aorta. Surgical in size over the anterior abdominal was dry clean and intact. Examination of the skin revealed no evidence of significant rashes, suspicious appearing nevi or other concerning lesions. Neurologically the patient has motor weakness in all 4 extremities. Motor function is around 4-5 in severity. She has a weak cough. Reflexes are present and they're symmetrical. Pupils are equal and reactive. No facial asymmetry. She comprehends and she is able to answer questions even while being intubated. These are mainly simple questions and she answers by saying yes or no. Results - Laboratory Findings Abnormal lab findings: Abnormal Labs 11/23/18 11:36 POC Glucose (mg/dL) 108 H - Diagnostic Findings Chest x-ray: image reviewed Assessment and Plan Plan: 1 acute hypoxic/hypercapnic respiratory failure following an attempted robotic- assisted nephrectomy. The patient was extubated wasn't she had to be reintubated. Based on my, residual anesthesia, the patient was quite weak and there was obviously a component of neuromuscular weakness. At the same time there is a concern of a lingular/posterior tongue lesion, however, base on the anesthesiologist's description, this lesion was not causing any anatomic obstruction the patient was intubated easily with a #8 ET tube without any difficulties. She does have underlying COPD also. 2 attempted robotic nephrectomy for renal mass, failed due to extensive adhesions. Patient is postop day #0 3 renal mass, suspicious for renal cell carcinoma 4 COPD/chronic smoker 5 posterior tongue/lingular tonsillar mass under the care of Dr. Felipe locally. The previous biopsy of the lingular tonsil tissue showed chronic inflammation with mild reactive epithelial changes without evidence of any malignancy. 6 diabetes mellitus 7 hypertension 8 hyperlipidemia 9 smoker 10 history of melanoma Plan Check electrolytes. Check CBC. Continue vent support. Obtain a blood gas. Put the patient on DuoNeb nebulized treatments around the clock. IV Solu- Medrol. Check myasthenia gravis antibodies. Keep the patient sedated with propofol. IV hydration with normal saline today to [address] Insulin coverage. DVT and GI prophylaxis. We'll continue to follow. We'll given a sedation holiday in the morning and assess her strength and ability to wean and her weaning parameters. May decide to extubate her over the bronchoscope to evaluate her upper airway. ENT consultation may be of value at the later stage. We'll follow.
[2018-11-23 17:46] LABS: ABG Base Excess -3.9 mmol/L; ABG HCO3 23 mmol/L (21-25); ABG Oxygen Saturation 99.2 % (94-97); ABG PCO2 47 mmHg (35-45); ABG PH 7.29 (7.35-7.45); ABG PO2 167 mmHg (83-108); ABG TCO2 24 mmol/L (19-24); Allen Test Performed? Yes
[2018-11-23] MEDS: PROPOFOL 1,000 MG in EMPTY BAG 1 BAG IV SCH ×3 (18:06→20:38)
[2018-11-23] MEDS: DEXTROSE 5%-0.45% NACL 1,000 ML IV SCH ×2 (18:06→20:13)
[2018-11-23 18:10] LABS: Basophils % (A) 0 %; Eosinophils % (A) 0 %; HCT 38.2 % (34.0-46.0); HGB 12.3 gm/dL (11.4-16.0); Lymphocytes # (A) 0.3 k/uL (1.0-4.8); Lymphocytes % (A) 3 %; MCH 31.5 pg (25.0-35.0); MCHC 32.2 g/dL (31.0-37.0); MCV 97.9 fL (80.0-100.0); Mean Platelet Volume 7.5; Monocytes # (A) 0.2 k/uL (0-1.0); Monocytes % (A) 2 %; Neutrophils # (A) 9.3 k/uL (1.3-7.7); Neutrophils % (A) 95 %; Platelet Count 173 k/uL (150-450); RDW 15.5 % (11.5-15.5); WBC 9.8 k/uL (3.8-10.6)
[2018-11-23] MEDS: HEPARIN SODIUM,PORCINE 5,000 UNIT/ML 1 ML VIAL SQ SCH ×2 (18:13→23:31)
[2018-11-23] MEDS: methylPREDNISolone SOD SUCCI 125 MG/2 ML VIAL IV SCH ×2 (18:18→23:31)
[2018-11-23 18:21] LABS: Albumin 3.4 g/dL (3.5-5.0); Calcium 8.5 mg/dL (8.4-10.2); Potassium 4.6 mmol/L (3.5-5.1); Total Bilirubin 0.5 mg/dL (0.2-1.3); Total Protein 5.3 g/dL (6.3-8.2)
[2018-11-23] MEDS: INSULIN ASPART (NovoLOG) 100 UNIT/ML VIAL SQ SCH ×2 (18:54→23:32)
[2018-11-23] MEDS: IPRATROPIUM-ALBUTEROL 3 ML NEB INHALATION SCH (19:21)
[2018-11-23] MEDS: CHLORHEXIDINE GLUCONATE 15 ML CUP MUCOUS MEM SCH (20:12)
[2018-11-23 23:32] LABS: Glucose,Whole Blood 245 mg/dL (75-99)
[2018-11-24] MEDS: PROPOFOL 1,000 MG in EMPTY BAG 1 BAG IV SCH (03:42)
[2018-11-24] MEDS: DEXTROSE 5%-0.45% NACL 1,000 ML IV SCH (03:44)
[2018-11-24 05:28] LABS: ABG Base Excess -1.7 mmol/L; ABG HCO3 21 mmol/L (21-25); ABG Oxygen Saturation 99.4 % (94-97); ABG PCO2 25 mmHg (35-45); ABG PH 7.54 (7.35-7.45); ABG PO2 138 mmHg (83-108); ABG TCO2 22 mmol/L (19-24); Allen Test Performed? Yes
[2018-11-24 05:56] LABS: Anisocytosis Slight; Basophils % (A) 0 %; Eosinophils # (A) 0.1 k/uL (0-0.7); Eosinophils % (A) 1 %; HCT 39.7 % (34.0-46.0); HGB 13.4 gm/dL (11.4-16.0); Lymphocytes # (A) 0.7 k/uL (1.0-4.8); Lymphocytes % (A) 10 %; MCH 31.5 pg (25.0-35.0); MCHC 33.7 g/dL (31.0-37.0); MCV 93.5 fL (80.0-100.0); Mean Platelet Volume 8.6; Monocytes # (A) 0.2 k/uL (0-1.0); Monocytes % (A) 3 %; Neutrophils # (A) 5.8 k/uL (1.3-7.7); Neutrophils % (A) 85 %; Platelet Count 182 k/uL (150-450); RBC 4.25 m/uL (3.80-5.40); RDW 16.1 % (11.5-15.5); WBC 6.8 k/uL (3.8-10.6)
[2018-11-24 06:17] LABS: Glucose,Whole Blood 268 mg/dL (75-99)
[2018-11-24 06:19] LABS: Potassium 4.4 mmol/L (3.5-5.1)
[2018-11-24] MEDS: INSULIN ASPART (NovoLOG) 100 UNIT/ML VIAL SQ SCH ×3 (06:24→21:09)
[2018-11-24] MEDS: IPRATROPIUM-ALBUTEROL 3 ML NEB INHALATION SCH ×4 (07:16→19:45)
--- NOTE | 2018-11-24 07:24 | P.PN ---
Subjective Progress Note Date: 11/24/18 The patient was to undergo a robotic partial nephrectomy yesterday but this was aborted due to extensive intra-peritoneal adhesions. She required as you care overnight due to slow recuperation from anesthetic. She is waking up and will probably be extubated today. At present the plan is to do a retroperitoneal approach to partial nephrectomy by in a few weeks. Objective - Vital Signs Vital signs: Vital Signs Temp 98.3 F 11/24/18 04:00 Pulse 85 11/24/18 07:16 Resp 20 11/24/18 07:00 BP 137/86 11/24/18 07:00 Pulse Ox 97 11/24/18 07:00 Intake & Output 11/23/18 11/24/18 11/24/18 18:59 06:59 18:59 Intake Total 4796.056 3482.77 125 Output Total 273 1145 550 Balance 1367.114 461.77 -425 Weight 80.6 kg Intake: IV 1625 1475 125 Dextrose 5%-0.45% NaCl 1, 375 1375 125 000 ml @ 125 mls/hr IV . Q8H RAMILA Rx#:[id number] ceFAZolin 2 gm In Sodium 100 Chloride 0.9% 50 ml @ 100 mls/hr IVPB Q8H RAMILA Rx#: [id number] Intake, IV Titration 15.114 131.77 Amount Propofol 1,000 mg In 15.114 131.77 Empty Bag 1 bag @ 20 MCG/ KG/MIN 9.253 mls/hr IV . [id number] RAMILA Rx#:[id number] Output: Gastric Drainage 500 Urine 268 1145 50 Estimated Blood Loss 5 Other: Voiding Method Indwelling Catheter Indwelling Catheter - Labs CBC & Chem 7: 11/24/18 05:27 11/24/18 05:27 Labs: Abnormal Lab Results - Last 24 Hours (Table) 11/23/18 11/23/18 11/23/18 Range/Units 11:36 17:43 17:51 RDW (11.5-15.5) % Neutrophils # 9.3 H (1.3-7.7) k/uL Lymphocytes # 0.3 L (1.0-4.8) k/uL ABG pH 7.29 L (7.35-7.45) ABG pCO2 47 H (35-45) mmHg ABG pO2 167 H (83-108) mmHg ABG O2 Saturation 99.2 H (94-97) % Chloride (98-107) mmol/L Carbon Dioxide (22-30) mmol/L Creatinine (0.52-1.04) mg/dL Glucose (74-99) mg/dL POC Glucose (mg/dL) 108 H (75-99) mg/dL Total Protein (6.3-8.2) g/dL Albumin (3.5-5.0) g/dL 11/23/18 11/23/18 11/24/18 Range/Units 17:51 23:21 05:26 RDW (11.5-15.5) % Neutrophils # (1.3-7.7) k/uL Lymphocytes # (1.0-4.8) k/uL ABG pH 7.54 H (7.35-7.45) ABG pCO2 25 L (35-45) mmHg ABG pO2 138 H (83-108) mmHg ABG O2 Saturation 99.4 H (94-97) % Chloride (98-107) mmol/L Carbon Dioxide (22-30) mmol/L Creatinine 1.16 H (0.52-1.04) mg/dL Glucose 243 H (74-99) mg/dL POC Glucose (mg/dL) 245 H (75-99) mg/dL Total Protein 5.3 L (6.3-8.2) g/dL Albumin 3.4 L (3.5-5.0) g/dL 11/24/18 11/24/18 11/24/18 Range/Units 05:27 05:27 06:06 RDW 16.1 H (11.5-15.5) % Neutrophils # (1.3-7.7) k/uL Lymphocytes # 0.7 L (1.0-4.8) k/uL ABG pH (7.35-7.45) ABG pCO2 (35-45) mmHg ABG pO2 (83-108) mmHg ABG O2 Saturation (94-97) % Chloride 110 H (98-107) mmol/L Carbon Dioxide 19 L (22-30) mmol/L Creatinine (0.52-1.04) mg/dL Glucose 267 H (74-99) mg/dL POC Glucose (mg/dL) 268 H (75-99) mg/dL Total Protein (6.3-8.2) g/dL Albumin (3.5-5.0) g/dL
--- NOTE | 2018-11-24 08:27 | XR ---
EXAMINATION TYPE: XR chest 1V portable DATE OF EXAM: 11/24/2018 COMPARISON: Prior chest x-ray 11/23/2018 HISTORY: Intubated TECHNIQUE: Single frontal view of the chest is obtained. FINDINGS: Endotracheal tube, NG tube are overlying appropriate positions, distal tip of the NG tube not included on the exam. Retrocardiac density obscures the left hemidiaphragm. Patient is rotated an d there are overlying cardiac leads. No evident pneumothorax. Heart size is stable. Lucency beneath t he right hemidiaphragm medially is no longer seen. IMPRESSION: Possible basilar atelectasis, correlate to exclude left lower lobe pneumonia, associated effusion. Improvement of pneumoperitoneum.
[2018-11-24] MEDS: PANTOPRAZOLE 40 MG/10 ML VIAL IV SCH (08:42)
[2018-11-24] MEDS: HEPARIN SODIUM,PORCINE 5,000 UNIT/ML 1 ML VIAL SQ SCH ×3 (08:42→23:48)
[2018-11-24] MEDS: methylPREDNISolone SOD SUCCI 125 MG/2 ML VIAL IV SCH ×3 (08:42→23:48)
[2018-11-24] MEDS: CHLORHEXIDINE GLUCONATE 15 ML CUP MUCOUS MEM SCH (08:42)
--- NOTE | 2018-11-24 08:50 | P.PN ---
Subjective Progress Note Date: 11/24/18 63-year-old female patient with mild chronic kidney disease/renal insufficiency was found to have a 3 cm atypical right renal mass. This was worrisome for renal cell carcinoma. The patient was taken to the operating room for a robotic-assisted nephrectomy partial. The procedure itself was not successful as the surgeon and count is significant amount of adhesions. There was extensive intraperitoneal adhesions and it was not possible to complete the procedure. Estimated blood loss was 10 mL and the total of 700 mL's of IV fluid was given. I/the procedure was aborted. The patient was extubated and the patient was brought in to the recovery. Following arrival to the recovery the patient was found to be short of breath. On examination the patient was not moving much air and she was quite weak and was decided the patient was still under the effect this sedative medication and possibly paralytics. The patient was reintubated. The patient was kept on mechanical ventilator and subsequently another trial of extubation was done. Similar lesions was encountered and the patient was unable to generate enough tidal volume. She was weak in her arms. She had a weak cough. At the same time there was a concern of a throat mass although this was not clear based on description was given by the anesthesiologist who intubated the patient. The patient is currently in the intensive care unit intubated on a mechanical ventilator. She is an assist- control mode of ventilation at the rate of 10 with a tidal volume of 550 and FiO2 of 70% with a PEEP of 5. She is awake, however she is quite weak. She has a weak grasp. She is unable to raise the head of the bed. I'm not aware of any other history of neuromuscular weakness in this patient. No history of myasth enia gravis. No history of any reactions to once paralytics or muscle relaxants. During the intubation process of the patient was given succinylcholine and Ativan. No labs are available. Chest x-ray post intubation shows adequate positioning of ET tube 2 cm above the genaro. There is a limited at under the right hemidiaphragm which is probably related to postsurgical changes. No acute home and infiltrates pH is a chronic smoker in she has COPD.. Blood pressure is around 27 the mechanical ventilator. No significant bronchospasm wheezing. Blood gases to follow.. The patient is hemodynamically stable. On 11/24/2018 and seeing this patient for a follow-up. This morning the patient was taken off sedation and she is in the process of recovering from sedation. She is awake she is following commands and she is obviously more strong as the patient is able to lift her head off the bed and she is able to grasp and she has a strong cat hooker. She has no major respiratory distress even on the mechanical ventilator. She still on assist control mode of ventilation and a tidal volumes dropped down to 450 as the patient's blood gas showed a pH of 7.54 with a pCO2 of 25 and pO2 of 138 while being on an FiO2 of 50% with a PEEP of 5. FiO2 is currently down to 40%. She has a chest x-ray that shows a small left-sided pleural effusion. Otherwise the patient remains hemodynamically stable. She has adequate urine output. The fluid is running at 1 25 mL an hour of D5 half- normal saline. Surgical wound site over the anterior abdominal was dry clean and intact. She has a good urine output. Renal function is stable. Her BUN is at 14 with a creatinine of 0.98. No other significant events otherwise. The patient was treated with a combination of bronchodilators. She was also offered IV Solu-Medrol 60 mg every 8 hours. Acetylcholine receptor antibodies have been sent. Objective - Vital Signs Vital signs: Vital Signs Temp 98.3 F 11/24/18 04:00 Pulse 86 11/24/18 08:00 Resp 20 11/24/18 08:00 BP 147/77 11/24/18 08:00 Pulse Ox 99 11/24/18 08:00 Intake & Output 11/23/18 11/24/18 11/24/18 18:59 06:59 18:59 Intake Total 7517.291 8973.77 250 Output Total 273 1145 675 Balance 1367.114 461.77 -425 Weight 80.6 kg Intake: IV 1625 1475 250 Dextrose 5%-0.45% NaCl 1, 375 1375 250 000 ml @ 125 mls/hr IV . Q8H RAMILA Rx#:[id number] ceFAZolin 2 gm In Sodium 100 Chloride 0.9% 50 ml @ 100 mls/hr IVPB Q8H RAMILA Rx#: [id number] Intake, IV Titration 15.114 131.77 Amount Propofol 1,000 mg In 15.114 131.77 Empty Bag 1 bag @ 20 MCG/ KG/MIN 9.253 mls/hr IV . [id number] [facility] Rx#:[id number] Output: Gastric Drainage 500 Urine 268 1145 175 Estimated Blood Loss 5 Other: Voiding Method Indwelling Catheter Indwelling Catheter - Exam Gen. appearance, comfortable intubated on a mechanical ventilator. The patient is awake and alert Head exam was generally normal. There was no scleral icterus or corneal arcus. Mucous membranes were moist. Neck was supple and without jugular venous distension, thyromegaly, or carotid bruits. Carotids were easily palpable bilaterally. There was no adenopathy. The patient is a orogastric and orotracheal tube are both of them are in place. The patient has no neck masses on palpation. No lymphadenopathy in supraclavicular area. No neck stiffness. Lungs sounds are diminished bilaterally along with scattered rhonchi and scattered expiratory wheezes. Cardiac exam revealed the PMI to be normally situated and sized. The rhythm was regular and no extrasystoles were noted during several minutes of auscultation. The first and second heart sounds were normal and physiologic splitting of the second heart sound was noted. There were no murmurs, rubs, clicks, or gallops. Abdominal exam revealed normal bowel sounds. The abdomen was soft, non-tender, and without masses, organomegaly, or appreciable enlargement of the abdominal aorta. Surgical in size over the anterior abdominal was dry clean and intact. Examination of the skin revealed no evidence of significant rashes, suspicious appearing nevi or other concerning lesions. Neurologically the patient has motor weakness in all 4 extremities. Motor function is improved compared to yesterday and the patient has adequate motor function. Patient adequate cough and gag. - Labs CBC & Chem 7: 11/24/18 05:27 11/24/18 05:27 Labs: Abnormal Lab Results - Last 24 Hours (Table) 11/23/18 11/23/18 11/23/18 Range/Units 11:36 17:43 17:51 RDW (11.5-15.5) % Neutrophils # 9.3 H (1.3-7.7) k/uL Lymphocytes # 0.3 L (1.0-4.8) k/uL ABG pH 7.29 L (7.35-7.45) ABG pCO2 47 H (35-45) mmHg ABG pO2 167 H (83-108) mmHg ABG O2 Saturation 99.2 H (94-97) % Chloride (98-107) mmol/L Carbon Dioxide (22-30) mmol/L Creatinine (0.52-1.04) mg/dL Glucose (74-99) mg/dL POC Glucose (mg/dL) 108 H (75-99) mg/dL Total Protein (6.3-8.2) g/dL Albumin (3.5-5.0) g/dL 11/23/18 11/23/18 11/24/18 Range/Units 17:51 23:21 05:26 RDW (11.5-15.5) % Neutrophils # (1.3-7.7) k/uL Lymphocytes # (1.0-4.8) k/uL ABG pH 7.54 H (7.35-7.45) ABG pCO2 25 L (35-45) mmHg ABG pO2 138 H (83-108) mmHg ABG O2 Saturation 99.4 H (94-97) % Chloride (98-107) mmol/L Carbon Dioxide (22-30) mmol/L Creatinine 1.16 H (0.52-1.04) mg/dL Glucose 243 H (74-99) mg/dL POC Glucose (mg/dL) 245 H (75-99) mg/dL Total Protein 5.3 L (6.3-8.2) g/dL Albumin 3.4 L (3.5-5.0) g/dL 11/24/18 11/24/18 11/24/18 Range/Units 05:27 05:27 06:06 RDW 16.1 H (11.5-15.5) % Neutrophils # (1.3-7.7) k/uL Lymphocytes # 0.7 L (1.0-4.8) k/uL ABG pH (7.35-7.45) ABG pCO2 (35-45) mmHg ABG pO2 (83-108) mmHg ABG O2 Saturation (94-97) % Chloride 110 H (98-107) mmol/L Carbon Dioxide 19 L (22-30) mmol/L Creatinine (0.52-1.04) mg/dL Glucose 267 H (74-99) mg/dL POC Glucose (mg/dL) 268 H (75-99) mg/dL Total Protein (6.3-8.2) g/dL Albumin (3.5-5.0) g/dL Assessment and Plan Plan: 1 acute hypoxic/hypercapnic respiratory failure following an attempted robotic- assisted nephrectomy. The patient was extubated wasn't she had to be reintubated. Based on my, residual anesthesia, the patient was quite weak and there was obviously a component of neuromuscular weakness. At the same time there is a concern of a lingular/posterior tongue lesion, however, base on the anesthesiologist's description, this lesion was not causing any anatomic obstruction the patient was intubated easily with a #8 ET tube without any difficulties. She does have underlying COPD also. On 11/24/2018, the patient seems to be recovering from sedation well. She is demonstrating good weaning parameters. That propofol is completely off and the patient is in the process of being given a spontaneous breathing trial. My plan is to proceed with extubation today. I do not think there is any upper airway obstruction. I reviewed the records from ENT and the patient had a noncancerous tongue lesion posteriorly. Also, the possibility of myasthenia gravis or prolonged effect from paralytic agents need to be considered in this patient. In any rate, she seems to be stronger and I think should be able to pass a spontaneous breathing trial without any major difficulties. She has COPD and she is also receiving a combination of bronchodilators and steroids. 2 attempted robotic nephrectomy for renal mass, failed due to extensive adhesions. Patient is postop day #1 3 renal mass, suspicious for renal cell carcinoma 4 COPD/chronic smoker 5 posterior tongue/lingular tonsillar mass under the care of Dr. Felipe locally. The previous biopsy of the lingular tonsil tissue showed chronic inflammation with mild reactive epithelial changes without evidence of any malignancy. 6 diabetes mellitus 7 hypertension 8 hyperlipidemia 9 smoker 10 history of melanoma Plan On today's evaluation, the patient will be given a spontaneous breathing trial. We'll repeat a blood gas in 30 minutes. According to the sudden extubation. She has a good strength cough and gag and this point in time. Chest x-ray is nonrevealing. Continue bronchodilators. Continue steroids. The IV Fluids to 50 ML an Hour. We'll Continue to Follow Make Further Recommendations Based on Her Progress. She Is on Subcu Heparin for DVT Prophylaxis. Critically Care Evaluation More Than 30 Minutes. Time with Patient: Greater than 30
[2018-11-24 11:46] VITALS: BMI 63.1
[2018-11-24 13:08] LABS: Glucose,Whole Blood 214 mg/dL (75-99)
[2018-11-24] MEDS: SODIUM CHLORIDE 0.9% 1,000 ML IV SCH ×2 (16:20→22:21)
[2018-11-24] MEDS: LISINOPRIL 20 MG TAB PO SCH (16:27)
--- NOTE | 2018-11-24 17:53 | P.CONS ---
History of Present Illness - Reason for Consult Consult date: 11/24/18 diabetes Requesting physician: Sushma Wilder - Chief Complaint renal mass - History of Present Illness Patient is a 63 yo CF with a hx of 2.6 cm mass in the inferior pole of the right kidney suspicious for neoplasm, diabetes mellitus type 2 on oral medications, hypertension, dyslipidemia, fibromyalgia, and microscopic colitis with chronic diarrhea who presented for elective robotic assisted right partial nephrectomy. She went to the OR and 11/23/18 where they found she had extensive intraperitoeal adhesions from prior abdominal surgeries and the procedure was aborted. Patient was extubated and taken to PACU for recovery. However the patient is extremely short of breath and it was decided she was likely still under the effects of sedatives medications. She was subsequently reintubated and kept on the mechanical ventilator. They again attempted to extubate her however she had poor tidal volumes and was weak in her arms and had a weak cough. She was taken to the intensive care unit on a mechanical ventilator. She was monitored overnight and critical care was consulted. On the morning of 11/24 she was extubated. We are asked to consult for diabetic management. Patient seen and examined at bedside. She reports that she has been in her usual state of health up until surgery. She states that they incidentally found in the right renal mass on the CT scan in July when she was here for her microscopic colitis. She follows with Dr. Cristina and her blood sugars are typically controlled on Januvia and metformin. Her blood pressures are also well controlled. She denies any recent cough, cold, fever, flu, nausea, vomiting, or constipation. She has chronic diarrhea that is unchanged. She is having mild abdominal pain with movement but not much. She denies any current chest pain or shortness of breath. Review of Systems Pertinent positives and negatives as discussed in HPI, a complete review of systems was performed and all other systems are negative. Past Medical History Past Medical History: Cancer, COPD, Diabetes Mellitus, Fibromyalgia, Hyperli pidemia, Hypertension, Renal Disease Additional Past Medical History / Comment(s): colitis w/DIARRHEA., MELANOMA, STATES Lingual Tonsilar Tissue, MASS AT BASE OF TONGUE -FEELS LIKE SHE HAS SOMETHING IN HER THROAT-sees ENT every 6 months to monitor History of Any Multi-Drug Resistant Organisms: None Reported Past Surgical History: Cholecystectomy, Orthopedic Surgery, Tonsillectomy Additional Past Surgical History / Comment(s): LEFT ROTATOR CUFF, RT KNEE SURGERY, SKIN CA, MARIO EAR SURGERY-stapedectomy mario Past Anesthesia/Blood Transfusion Reactions: Postoperative Nausea & Vomiting (PONV) Smoking Status: Current every day smoker Additional History: Smokes a half to three quarters of pack per day, lives alone, no assistive devices - Past Family History Mother Family Medical History: No Reported History, Dementia Additional Family Medical History / Comment(s): PARKINSONS Brother(s) Family Medical History: Deep Vein Thrombosis (DVT), Myocardial Infarction (AR), Vascular Disorder Additional Family Medical History / Comment(s): has had mario. carotid endartectomies Father Family Medical History: Diabetes Mellitus Medications and Allergies Home Medications Medication Instructions Recorded Confirmed Type Allopurinol [Zyloprim] 300 mg PO HS 06/11/16 11/23/18 History Simvastatin [Zocor] 40 mg PO HS 06/11/16 11/23/18 History sitaGLIPtin PHOS/metFORMIN HCL 1 tab PO BID 06/11/16 11/23/18 History [Janumet 50-1,000 mg Tablet] Enalapril [Vasotec] 10 mg PO DAILY 11/15/18 11/23/18 History Loperamide [Imodium] 4 mg PO QID PRN 11/15/18 11/23/18 History Magnesium Oxide [Mag-Ox] 500 mg PO DAILY 11/15/18 11/23/18 History Multivit-Min/Iron/Folic/Lutein 1 tab PO DAILY 11/15/18 11/23/18 History [Centrum Silver Women Tablet] Ondansetron [Zofran] 4 mg PO Q8HR PRN 11/15/18 11/23/18 History Zolpidem [Ambien] 10 mg PO HS PRN 11/15/18 11/23/18 History Mometasone Furoate 1 applic TOPICAL DAILY PRN 11/21/18 11/23/18 History Allergies Allergy/AdvReac Type Severity Reaction Status Date / Time atropine [From Lomotil] Allergy Swelling Verified 11/23/18 16:35 diphenoxylate [From Lomotil] Allergy Swelling Verified 11/23/18 16:35 codeine AdvReac Unknown Nausea & Verified 11/23/18 16:35 Vomiting levofloxacin [From Levaquin] AdvReac Nausea & Verified 11/23/18 16:35 Vomiting metronidazole [From Flagyl] AdvReac Nausea & Verified 11/23/18 16:35 Vomiting Physical Exam Osteopathic Statement: *. No significant issues noted on an osteopathic structural exam other than those noted in the History and Physical/Consult. Vitals: Vital Signs Temp Pulse Pulse Resp BP Pulse Ox 11/24/18 17:00 98 28 H 11/24/18 16:00 98.1 F 91 108 H 29 H 115/86 98 11/24/18 15:00 102 H 29 H 118/63 97 11/24/18 14:02 90 L 11/24/18 14:00 85 23 111/69 97 11/24/18 13:00 84 21 116/62 95 11/24/18 12:36 78 11/24/18 12:26 64 11/24/18 12:00 97.9 F 70 12 118/65 97 11/24/18 11:00 84 18 130/74 97 11/24/18 10:00 87 24 146/70 97 11/24/18 09:00 99.1 F 89 17 138/70 100 11/24/18 08:00 86 108 H 17 147/77 99 11/24/18 07:43 89 11/24/18 07:16 85 11/24/18 07:00 84 20 137/86 97 11/24/18 06:00 78 20 123/74 99 11/24/18 05:00 61 20 143/87 100 11/24/18 04:00 98.3 F 75 20 125/74 100 11/24/18 03:00 59 L 20 139/84 99 11/24/18 02:00 73 20 123/77 100 11/24/18 01:00 64 20 113/70 99 11/24/18 00:00 97.9 F 64 20 133/74 98 11/23/18 23:00 72 20 112/69 99 11/23/18 22:12 60 20 112/69 99 11/23/18 22:00 62 20 112/81 99 11/23/18 21:00 65 20 114/71 100 11/23/18 20:00 98.0 F 60 20 112/67 99 11/23/18 19:28 66 11/23/18 19:22 61 11/23/18 19:00 62 20 104/64 100 11/23/18 18:45 62 20 109/63 100 11/23/18 18:30 68 20 116/59 100 11/23/18 18:15 70 20 115/67 100 11/23/18 18:00 84 20 97/58 100 11/23/18 17:45 98.2 F 80 10 L 97/49 100 Intake and Output 11/24/18 11/24/18 11/24/18 06:59 14:59 22:59 Intake Total 1150 865 731 Output Total 845 1315 Balance 305 -450 731 Intake: IV 1050 625 250 Dextrose 5%-0.45% NaCl 1, 1000 625 250 000 ml @ 125 mls/hr IV . Q8H RAMILA Rx#:[id number] ceFAZolin 2 gm In Sodium 50 Chloride 0.9% 50 ml @ 100 mls/hr IVPB Q8H RAMILA Rx#: [id number] Intake, IV Titration 100 125 Amount Propofol 1,000 mg In 100 Empty Bag 1 bag @ 20 MCG/ KG/MIN 9.253 mls/hr IV . [id number] RAMILA Rx#:[id number] Sodium Chloride 0.9% 1, 125 000 ml @ 125 mls/hr IV . Q8H RAMILA Rx#:[id number] Oral 240 356 Output: Gastric Drainage 500 Urine 845 815 Other: Voiding Method Indwelling Catheter Indwelling Catheter Indwelling Catheter # Voids 1 Weight 80.6 kg General: non toxic, no distress, appears at stated age, normal weight Derm: no unusual rashes/lesions no unusual ecchymoses, warm, dry Head: atraumatic, normocephalic, symmetric Eyes: EOMI, no lid lag, anicteric sclera, pupils equal round reactive to light ENT: Nose and ears atraumatic, no thrush, no pharyngeal erythema Neck: No thyromegaly, no cervical lymphadenopathy, trachea midline, supple Mouth: no lip lesion, mucus membranes moist Cardiovascular: S1S2 reg, no murmur, positive posterior tibial pulse bilateral, no edema, capillary refill less than 2 seconds Lungs: CTA bilateral, no rhonchi, no rales , no accessory muscle use Abdominal: soft, nontender to palpation, no guarding, no appreciable organomegaly, normal bowel sounds Ext: no gross muscle atrophy, muscle strength 5 out of 5 in all 4 extremities grossly, no contractures, Neuro: CN II-XI grossly intact, light touch intact all 4 extremities, finger to nose within normal limits, Psych: Alert, oriented, appropriate affect Results CBC & Chem 7: 11/24/18 05:27 11/24/18 05:27 Labs: Abnormal Lab Results - Last 24 Hours (Table) 11/23/18 11/23/18 11/23/18 Range/Units 17:43 17:51 17:51 RDW (11.5-15.5) % Neutrophils # 9.3 H (1.3-7.7) k/uL Lymphocytes # 0.3 L (1.0-4.8) k/uL ABG pH 7.29 L (7.35-7.45) ABG pCO2 47 H (35-45) mmHg ABG pO2 167 H (83-108) mmHg ABG O2 Saturation 99.2 H (94-97) % Chloride (98-107) mmol/L Carbon Dioxide (22-30) mmol/L Creatinine 1.16 H (0.52-1.04) mg/dL Glucose 243 H (74-99) mg/dL POC Glucose (mg/dL) (75-99) mg/dL Total Protein 5.3 L (6.3-8.2) g/dL Albumin 3.4 L (3.5-5.0) g/dL 11/23/18 11/24/18 11/24/18 Range/Units 23:21 05:26 05:27 RDW 16.1 H (11.5-15.5) % Neutrophils # (1.3-7.7) k/uL Lymphocytes # 0.7 L (1.0-4.8) k/uL ABG pH 7.54 H (7.35-7.45) ABG pCO2 25 L (35-45) mmHg ABG pO2 138 H (83-108) mmHg ABG O2 Saturation 99.4 H (94-97) % Chloride (98-107) mmol/L Carbon Dioxide (22-30) mmol/L Creatinine (0.52-1.04) mg/dL Glucose (74-99) mg/dL POC Glucose (mg/dL) 245 H (75-99) mg/dL Total Protein (6.3-8.2) g/dL Albumin (3.5-5.0) g/dL 11/24/18 11/24/18 11/24/18 Range/Units 05:27 06:06 12:56 RDW (11.5-15.5) % Neutrophils # (1.3-7.7) k/uL Lymphocytes # (1.0-4.8) k/uL ABG pH (7.35-7.45) ABG pCO2 (35-45) mmHg ABG pO2 (83-108) mmHg ABG O2 Saturation (94-97) % Chloride 110 H (98-107) mmol/L Carbon Dioxide 19 L (22-30) mmol/L Creatinine (0.52-1.04) mg/dL Glucose 267 H (74-99) mg/dL POC Glucose (mg/dL) 268 H 214 H (75-99) mg/dL Total Protein (6.3-8.2) g/dL Albumin (3.5-5.0) g/dL Chest x-ray: report reviewed Assessment and Plan Assessment: Patient is a 63-year-old female status post attempted robotic partial nephrectomy for right renal mass. The plan is to reattempt surgery with a posterior approach in approximately one month per urology. Diabetes mellitus type 2 with hyperglycemia -Likely reactive to steroids -Start Levemir, continue sliding scale insulin -Outpatient follow-up with Dr. Cristina her PCP -Resume Januvia and metformin in a.m. Hypertension, controlled -Resume home RAD inhibitor Dyslipidemia -Resume statin Tobacco abuse -Cessation -Nicotine replacement Right tonsillar mass -Continue outpatient follow-up with Dr. Felipe Acute hypoxic hypercapnic respiratory failure, resolved -Management per pulmonary critical care -On steroids for possible COPD Thank you for allowing us to participate in the care of this patient. Do not hesitate to contact us with questions. Someone can be reached from the [facility] hospitalist group at all hours of the day at [phone].
[2018-11-24 20:48] LABS: Glucose,Whole Blood 249 mg/dL (75-99)
[2018-11-24] MEDS ORDERED: ATORVASTATIN 20 MG TAB PO SCH (21:00)
[2018-11-24] MEDS ORDERED: INSULIN DETEMIR (LEVEMIR) 100 UNIT/ML SYR SQ SCH (21:00)
[2018-11-24] MEDS ORDERED: ALLOPURINOL 300 MG TAB PO SCH (21:00)
[2018-11-24] MEDS: KETOROLAC 30 MG/ML 1 ML VIAL IVP PRN (22:22)
[2018-11-25] MEDS: SODIUM CHLORIDE 0.9% 1,000 ML IV SCH ×2 (04:35→07:24)
[2018-11-25 05:16] LABS: Basophils % (A) 0 %; Eosinophils % (A) 0 %; HCT 35.4 % (34.0-46.0); HGB 11.5 gm/dL (11.4-16.0); Lymphocytes # (A) 0.6 k/uL (1.0-4.8); Lymphocytes % (A) 6 %; MCH 30.9 pg (25.0-35.0); MCHC 32.5 g/dL (31.0-37.0); MCV 95.3 fL (80.0-100.0); Mean Platelet Volume 7.5; Monocytes # (A) 0.2 k/uL (0-1.0); Monocytes % (A) 2 %; Neutrophils # (A) 7.9 k/uL (1.3-7.7); Neutrophils % (A) 91 %; Platelet Count 179 k/uL (150-450); RBC 3.71 m/uL (3.80-5.40); RDW 15.6 % (11.5-15.5); WBC 8.8 k/uL (3.8-10.6)
[2018-11-25 05:22] LABS: Calcium 8.3 mg/dL (8.4-10.2)
[2018-11-25] MEDS: INSULIN ASPART (NovoLOG) 100 UNIT/ML VIAL SQ SCH ×2 (07:03→11:48)
[2018-11-25] MEDS: KETOROLAC 30 MG/ML 1 ML VIAL IVP PRN (07:04)
[2018-11-25 07:08] LABS: Glucose,Whole Blood 201 mg/dL (75-99)
[2018-11-25] MEDS: IPRATROPIUM-ALBUTEROL 3 ML NEB INHALATION SCH ×2 (07:36→11:11)
[2018-11-25 08:05] VITALS: TEMP 97.9
[2018-11-25] MEDS: LISINOPRIL 20 MG TAB PO SCH (08:31)
[2018-11-25] MEDS: PANTOPRAZOLE 40 MG/10 ML VIAL IV SCH (08:31)
[2018-11-25] MEDS: HEPARIN SODIUM,PORCINE 5,000 UNIT/ML 1 ML VIAL SQ SCH (08:32)
[2018-11-25] MEDS: methylPREDNISolone SOD SUCCI 125 MG/2 ML VIAL IV SCH (08:32)
[2018-11-25] MEDS ORDERED: predniSONE 20 MG TAB PO SCH (09:00)
--- NOTE | 2018-11-25 11:03 | P.DS ---
Providers Date of admission: 11/23/18 16:10 Attending physician: Sushma Wilder Consults: 11/23/18 16:22 Consult Physician Stat Consulting Provider: Ashley Keller Consult Reason/Comments: INTUBATED Do you want consulting provider notified?: Yes 11/23/18 16:50 Consult Physician Routine Consulting Provider: Jonathan Kaminski Consult Reason/Comments: epiglottis mass Do you want consulting provider notified?: Yes 11/24/18 13:39 Consult Physician Routine Consulting Provider: Isatu Ng Consult Reason/Comments: Medical management Do you want consulting provider notified?: Yes Primary care physician: Ari Cristina Hospital Course: The patient was admitted for a robotic partial nephrectomy to the right kidney by . This was aborted due to extensive intraperitoneal adhesions. She had respiratory failure due to required intraoperative muscular agents. This required intensive care stay and respiratory management by Dr. Keller for 24 hours. She is now doing fine. Her abdomen was soft. Wound is clear. She will follow-up with our office, Dr. Cristina and Dr Patrick office . Postoperative instructions been given. sHe's been given a prescription for Toradol and Solu- Medrol. Patient Condition at Discharge: Good Plan - Discharge Summary Discharge Rx Participant: No New Discharge Prescriptions: New Ketorolac [Toradol] 10 mg PO Q6HR #20 tab No Action Simvastatin [Zocor] 40 mg PO HS Allopurinol [Zyloprim] 300 mg PO HS sitaGLIPtin PHOS/metFORMIN HCL [Janumet 50-1,000 mg Tablet] 1 tab PO BID Loperamide [Imodium] 4 mg PO QID PRN PRN Reason: colitis Zolpidem [Ambien] 10 mg PO HS PRN PRN Reason: Insomnia Ondansetron [Zofran] 4 mg PO Q8HR PRN PRN Reason: Nausea Enalapril [Vasotec] 10 mg PO DAILY Multivit-Min/Iron/Folic/Lutein [Centrum Silver Women Tablet] 1 tab PO DAILY Magnesium Oxide [Mag-Ox] 500 mg PO DAILY Mometasone Furoate 1 applic TOPICAL DAILY PRN PRN Reason: Skin Irritation Discharge Medication List Allopurinol [Zyloprim] 300 mg PO HS 06/11/16 [History] Simvastatin [Zocor] 40 mg PO HS 06/11/16 [History] sitaGLIPtin PHOS/metFORMIN HCL [Janumet 50-1,000 mg Tablet] 1 tab PO BID 06/11/16 [History] Enalapril [Vasotec] 10 mg PO DAILY 11/15/18 [History] Loperamide [Imodium] 4 mg PO QID PRN 11/15/18 [History] Magnesium Oxide [Mag-Ox] 500 mg PO DAILY 11/15/18 [History] Multivit-Min/Iron/Folic/Lutein [Centrum Silver Women Tablet] 1 tab PO DAILY 11/15/18 [History] Ondansetron [Zofran] 4 mg PO Q8HR PRN 11/15/18 [History] Zolpidem [Ambien] 10 mg PO HS PRN 11/15/18 [History] Mometasone Furoate 1 applic TOPICAL DAILY PRN 11/21/18 [History] Ketorolac [Toradol] 10 mg PO Q6HR #20 tab 11/25/18 [Rx] Follow up Appointment(s)/Referral(s): Sushma Wilder MD [STAFF PHYSICIAN] - 1 Week Activity/Diet/Wound Care/Special Instructions: The patient may resume her home medications. She should contact our office with any problems. She may drive by Tuesday. She should contact Dr. Wilder for follow- up. SHe should contact Dr. Cristina for follow-up. Discharge Disposition: HOME SELF-CARE
--- NOTE | 2018-11-25 11:05 | P.PN ---
Subjective Progress Note Date: 11/25/18 63-year-old female patient with mild chronic kidney disease/renal insufficiency was found to have a 3 cm atypical right renal mass. This was worrisome for renal cell carcinoma. The patient was taken to the operating room for a robotic-assisted nephrectomy partial. The procedure itself was not successful as the surgeon and count is significant amount of adhesions. There was extensive intraperitoneal adhesions and it was not possible to complete the procedure. Estimated blood loss was 10 mL and the total of 700 mL's of IV fluid was given. I/the procedure was aborted. The patient was extubated and the patient was brought in to the recovery. Following arrival to the recovery the patient was found to be short of breath. On examination the patient was not moving much air and she was quite weak and was decided the patient was still under the effect this sedative medication and possibly paralytics. The patient was reintubated. The patient was kept on mechanical ventilator and subsequently another trial of extubation was done. Similar lesions was encountered and the patient was unable to generate enough tidal volume. She was weak in her arms. She had a weak cough. At the same time there was a concern of a throat mass although this was not clear based on description was given by the anesthesiologist who intubated the patient. The patient is currently in the intensive care unit intubated on a mechanical ventilator. She is an assist- control mode of ventilation at the rate of 10 with a tidal volume of 550 and FiO2 of 70% with a PEEP of 5. She is awake, however she is quite weak. She has a weak grasp. She is unable to raise the head of the bed. I'm not aware of any other history of neuromuscular weakness in this patient. No history of myasth enia gravis. No history of any reactions to once paralytics or muscle relaxants. During the intubation process of the patient was given succinylcholine and Ativan. No labs are available. Chest x-ray post intubation shows adequate positioning of ET tube 2 cm above the genaro. There is a limited at under the right hemidiaphragm which is probably related to postsurgical changes. No acute home and infiltrates pH is a chronic smoker in she has COPD.. Blood pressure is around 27 the mechanical ventilator. No significant bronchospasm wheezing. Blood gases to follow.. The patient is hemodynamically stable. On 11/24/2018 and seeing this patient for a follow-up. This morning the patient was taken off sedation and she is in the process of recovering from sedation. 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 She has no major respiratory distress even on the mechanical ventilator. She still on assist control mode of ventilation and a tidal volumes dropped down to 450 as the patient's blood gas showed a pH of 7.54 with a pCO2 of 25 and pO2 of 138 while being on an FiO2 of 50% with a PEEP of 5. FiO2 is currently down to 40%. She has a chest x-ray that shows a small left-sided pleural effusion. Otherwise the patient remains hemodynamically stable. She has adequate urine output. The fluid is running at 1 25 mL an hour of D5 half- normal saline. Surgical wound site over the anterior abdominal was dry clean and intact. She has a good urine output. Renal function is stable. Her BUN is at 14 with a creatinine of 0.98. No other significant events otherwise. The patient was treated with a combination of bronchodilators. She was also offered IV Solu-Medrol 60 mg every 8 hours. Acetylcholine receptor antibodies have been sent. On 11/25/2018, the patient is on room air oxygen. She is still in the intensive care unit. Over the past 24 hours there has been no significant events. The patient was extubated. She is up to regular diet. No stridor. No respiratory distress. No cough or sputum production. She is passing gas and flatus. Surgical wound site is dry clean and intact. No other significant events overnight and the patient is doing extremely well for the time being. She is ambulating. Hemoglobin stable at 11.5. Renal function is also stable. Objective - Vital Signs Vital signs: Vital Signs Temp 97.9 F 11/25/18 08:00 Pulse 80 11/25/18 10:00 Resp 15 11/25/18 10:00 BP 136/64 11/25/18 10:00 Pulse Ox 92 L 11/25/18 10:00 Intake & Output 11/24/18 11/25/18 11/25/18 18:59 06:59 18:59 Intake Total 2206 1500 860 Output Total 1315 500 Balance 891 1000 860 Weight 83.1 kg Intake: IV 1000 1500 500 Dextrose 5%-0.45% NaCl 1, 1000 000 ml @ 125 mls/hr IV . Q8H RAMILA Rx#:[id number] Sodium Chloride 0.9% 1, 1500 500 000 ml @ 10 mls/hr IV . Q24H RAMILA Rx#:[id number] Intake, IV Titration 250 Amount Sodium Chloride 0.9% 1, 250 000 ml @ 10 mls/hr IV . Q24H RAMILA Rx#:[id number] Oral 956 360 Output: Gastric Drainage 500 Urine 815 500 Other: Voiding Method Indwelling Catheter Toilet Toilet # Voids 1 0 - Exam Gen. appearance, comfortable extubated on room air oxygen Head exam was generally normal. There was no scleral icterus or corneal arcus. Mucous membranes were moist. Neck was supple and without jugular venous distension, thyromegaly, or carotid bruits. Carotids were easily palpable bilaterally. There was no adenopathy. The patient is a orogastric and orotracheal tube are both of them are in place. The patient has no neck masses on palpation. No lymphadenopathy in supraclavicular area. No neck stiffness. Lungs sounds are diminished bilaterally , overall air entry improved and there is no wheezes or rhonchi. Cardiac exam revealed the PMI to be normally situated and sized. The rhythm was regular and no extrasystoles were noted during several minutes of auscultation. The first and second heart sounds were normal and physiologic splitting of the second heart sound was noted. There were no murmurs, rubs, clicks, or gallops. Abdominal exam revealed normal bowel sounds. The abdomen was soft, non-tender, and without masses, organomegaly, or appreciable enlargement of the abdominal aorta. Surgical in size over the anterior abdominal was dry clean and intact. Examination of the skin revealed no evidence of significant rashes, suspicious appearing nevi or other concerning lesions. Neurologically the patient has no motor weakness and she is moving all 4 extremities without any limitation - Labs CBC & Chem 7: 11/25/18 04:54 11/25/18 04:54 Labs: Abnormal Lab Results - Last 24 Hours (Table) 11/24/18 11/24/18 11/25/18 Range/Units 12:56 20:37 04:54 RBC 3.71 L (3.80-5.40) m/uL RDW 15.6 H (11.5-15.5) % Neutrophils # 7.9 H (1.3-7.7) k/uL Lymphocytes # 0.6 L (1.0-4.8) k/uL Chloride (98-107) mmol/L BUN (7-17) mg/dL Creatinine (0.52-1.04) mg/dL Glucose (74-99) mg/dL POC Glucose (mg/dL) 214 H 249 H (75-99) mg/dL Calcium (8.4-10.2) mg/dL 11/25/18 11/25/18 Range/Units 04:54 06:56 RBC (3.80-5.40) m/uL RDW (11.5-15.5) % Neutrophils # (1.3-7.7) k/uL Lymphocytes # (1.0-4.8) k/uL Chloride 110 H (98-107) mmol/L BUN 20 H (7-17) mg/dL Creatinine 1.11 H (0.52-1.04) mg/dL Glucose 223 H (74-99) mg/dL POC Glucose (mg/dL) 201 H (75-99) mg/dL Calcium 8.3 L (8.4-10.2) mg/dL Assessment and Plan Plan: 1 acute hypoxic/hypercapnic respiratory failure following an attempted robotic-assisted nephrectomy. The patient was extubated wasn't she had to be reintubated. Based on my, residual anesthesia, the patient was quite weak and there was obviously a component of neuromuscular weakness. At the same time there is a concern of a lingular/posterior tongue lesion, however, base on the a nesthesiologist's description, this lesion was not causing any anatomic obstruction the patient was intubated easily with a #8 ET tube without any difficulties. She does have underlying COPD also. On 11/24/2018, the patient seems to be recovering from sedation well. She is demonstrating good weaning parameters. That propofol is completely off and the patient is in the process of being given a spontaneous breathing trial. My plan is to proceed with extubation today. I do not think there is any upper airway obstruction. I reviewed the records from ENT and the patient had a noncancerous tongue lesion posteriorly. Also, the possibility of myasthenia gravis or prolonged effect from paralytic agents need to be considered in this patient. In any rate, she seems to be stronger and I think should be able to pass a spontaneous breathing trial without any major difficulties. She has COPD and she is also receiving a combination of bronchodilators and steroids. On 11/25/2018, the patient remains extubated. No respiratory distress. No stridor. No wheezing. She is on room air oxygen. No cough sputum production chest that is so wheezing. She is on bronchodilators and systemic steroids. No aspiration. 2 attempted robotic nephrectomy for renal mass, failed due to extensive adhes ions. Patient is postop day #2 3 renal mass, suspicious for renal cell carcinoma 4 COPD/chronic smoker 5 posterior tongue/lingular tonsillar mass under the care of Dr. Felipe locally. The previous biopsy of the lingular tonsil tissue showed chronic inflammation with mild reactive epithelial changes without evidence of any malignancy. 6 diabetes mellitus 7 hypertension 8 hyperlipidemia 9 smoker 10 history of melanoma Plan Discontinue IV Solu-Medrol. Start the patient prednisone burst taper. DuoNeb about treatments [id number]. Smoking cessation counseling was done. Discharge is in progress. Follow-up with urology regarding the renal mass.
--- NOTE | 2018-11-25 11:10 | P.PN ---
Subjective Progress Note Date: 11/25/18 (delayed charting seen at 9 am) Principal diagnosis: Right renal mass Patient is a 63 yo CF with a hx of 2.6 cm mass in the inferior pole of the right kidney suspicious for neoplasm, diabetes mellitus type 2 on oral medications, hypertension, dyslipidemia, fibromyalgia, and microscopic colitis with chronic diarrhea who presented for elective robotic assisted right partial nephrectomy. She went to the OR and 11/23/18 where they found she had extensive intraperitoeal adhesions from prior abdominal surgeries and the procedure was aborted. Patient was extubated and taken to PACU for recovery. However the patient is extremely short of breath and it was decided she was likely still under the effects of sedatives medications. She was subsequently reintubated and kept on the mechanical ventilator. They again attempted to extubate her however she had poor tidal volumes and was weak in her arms and had a weak cough. She was taken to the intensive care unit on a mechanical ventilator. She was monitored overnight and critical care was consulted. On the morning of 11/24 she was extubated. We are asked to consult for diabetic management. Patient seen and examined at bedside. no chest pain, no shortness of breath, no nausea, no vomiting. Pain is controlled. Objective - Vital Signs Vital signs: Vital Signs Temp 97.9 F 11/25/18 08:00 Pulse 80 11/25/18 10:00 Resp 15 11/25/18 10:00 BP 136/64 11/25/18 10:00 Pulse Ox 92 L 11/25/18 10:00 Intake & Output 11/24/18 11/25/18 11/25/18 18:59 06:59 18:59 Intake Total 2206 1500 860 Output Total 1315 500 Balance 891 1000 860 Weight 83.1 kg Intake: IV 1000 1500 500 Dextrose 5%-0.45% NaCl 1, 1000 000 ml @ 125 mls/hr IV . Q8H RAMILA Rx#:[id number] Sodium Chloride 0.9% 1, 1500 500 000 ml @ 10 mls/hr IV . Q24H RAMILA Rx#:[id number] Intake, IV Titration 250 Amount Sodium Chloride 0.9% 1, 250 000 ml @ 10 mls/hr IV . Q24H RAMILA Rx#:[id number] Oral 956 360 Output: Gastric Drainage 500 Urine 815 500 Other: Voiding Method Indwelling Catheter Toilet Toilet # Voids 1 0 - Exam General: non toxic, no distress, appears at stated age, obese Derm: warm, dry Head: atraumatic, normocephalic, symmetric Eyes: EOMI, no lid lag, anicteric sclera Mouth: no lip lesion, mucus membranes moist Cardiovascular: S1S2 reg, no murmur, positive posterior tibial pulse bilateral, Lungs: CTA bilateral, no rhonchi, no rales , no accessory muscle use Abdominal: soft, nontender to palpation, no guarding, no appreciable organomegaly Ext: no gross muscle atrophy, no edema, no contractures Neuro: CN II-XI grossly intact, no focal neuro deficits Psych: Alert, oriented, appropriate affect - Labs CBC & Chem 7: 11/25/18 04:54 11/25/18 04:54 Labs: Abnormal Lab Results - Last 24 Hours (Table) 11/24/18 11/24/18 11/25/18 Range/Units 12:56 20:37 04:54 RBC 3.71 L (3.80-5.40) m/uL RDW 15.6 H (11.5-15.5) % Neutrophils # 7.9 H (1.3-7.7) k/uL Lymphocytes # 0.6 L (1.0-4.8) k/uL Chloride (98-107) mmol/L BUN (7-17) mg/dL Creatinine (0.52-1.04) mg/dL Glucose (74-99) mg/dL POC Glucose (mg/dL) 214 H 249 H (75-99) mg/dL Calcium (8.4-10.2) mg/dL 11/25/18 11/25/18 Range/Units 04:54 06:56 RBC (3.80-5.40) m/uL RDW (11.5-15.5) % Neutrophils # (1.3-7.7) k/uL Lymphocytes # (1.0-4.8) k/uL Chloride 110 H (98-107) mmol/L BUN 20 H (7-17) mg/dL Creatinine 1.11 H (0.52-1.04) mg/dL Glucose 223 H (74-99) mg/dL POC Glucose (mg/dL) 201 H (75-99) mg/dL Calcium 8.3 L (8.4-10.2) mg/dL Assessment and Plan Assessment: Patient is a 63-year-old female status post attempted robotic partial nephrectomy for right renal mass. The plan is to reattempt surgery with a posterior approach in approximately one month per urology. Diabetes mellitus type 2 with hyperglycemia -Likely reactive to steroids -Outpatient follow-up with Dr. Cristina her PCP -Resume Januvia and metformin Hypertension, controlled -continue vasotec Dyslipidemia -zocor Tobacco abuse -Cessation -Nicotine replacement Right tonsillar mass -Continue outpatient follow-up with Dr. Felipe Acute hypoxic hypercapnic respiratory failure, resolved -Management per pulmonary critical care -On steroids for possible COPD. Taper ordered. medically optimized for discharge.
[2018-11-25 11:23] VITALS: PULSE 72
[2018-11-25 11:44] VITALS: BP 136/68; RESP 63
[2018-11-25 11:54] LABS: Glucose,Whole Blood 222 mg/dL (75-99)
[2018-11-26] MEDS ORDERED: PANTOPRAZOLE 40 MG TABLET PO SCH (07:30)
== END 2018-11-25 12:45 | disposition home or self-care (01) | DRG 982 ==
LOC: OR 10:50 → 2SICU 16:10
PROVIDERS: ADMIT Urology; ATTEND Urology
PROC: 0DNE4ZZ Release Large Intestine, Percutaneous Endoscopic Approach (ICD-10-PCS; 2018-11-23)
PROC: 8E0W4CZ Robotic Assisted Procedure of Trunk Region, Percutaneous Endoscopic Approach (ICD-10-PCS; 2018-11-23)
PROC: 5A1935Z Respiratory Ventilation, Less than 24 Consecutive Hours (ICD-10-PCS; 2018-11-23)
PROC: 0DNU4ZZ Release Omentum, Percutaneous Endoscopic Approach (ICD-10-PCS; principal; 2018-11-23 12:30)
DX: J96.01 Acute respiratory failure with hypoxia (principal); C64.1 Malignant neoplasm of right kidney, except renal pelvis; J90 Pleural effusion, not elsewhere classified; J96.02 Acute respiratory failure with hypercapnia; E11.22 Type 2 diabetes mellitus with diabetic chronic kidney disease; J44.9 Chronic obstructive pulmonary disease, unspecified; E11.65 Type 2 diabetes mellitus with hyperglycemia; K66.0 Peritoneal adhesions (postprocedural) (postinfection); T48.205A Adverse effect of unspecified drugs acting on muscles, initial encounter; I12.9 Hypertensive chronic kidney disease with stage 1 through stage 4 chronic kidney disease, or unspecified chronic kidney disease; N18.2 Chronic kidney disease, stage 2 (mild); K14.0 Glossitis; R53.1 Weakness; M79.7 Fibromyalgia; E78.5 Hyperlipidemia, unspecified; K52.9 Noninfective gastroenteritis and colitis, unspecified; F17.210 Nicotine dependence, cigarettes, uncomplicated; Z71.6 Tobacco abuse counseling; Z53.8 Procedure and treatment not carried out for other reasons; Z79.84 Long term (current) use of oral hypoglycemic drugs; Z79.899 Other long term (current) drug therapy; Z85.820 Personal history of malignant melanoma of skin; Z98.890 Other specified postprocedural states; Z90.49 Acquired absence of other specified parts of digestive tract; Z82.0 Family history of epilepsy and other diseases of the nervous system; Z82.49 Family history of ischemic heart disease and other diseases of the circulatory system; Z83.3 Family history of diabetes mellitus; Z83.2 Family history of diseases of the blood and blood-forming organs and certain disorders involving the immune mechanism; Z88.1 Allergy status to other antibiotic agents; Z88.5 Allergy status to narcotic agent; Z88.8 Allergy status to other drugs, medicaments and biological substances
CPT/HCPCS: 36600; 71045; 80048; 80053; 82805; 83519; 85025; 86850; 86900; 86901; 94002; 94003; 94640

== ENCOUNTER → 2020-02-05 | Outpatient (CLI) | payer MEDICARE ==
--- NOTE | 2020-02-05 14:30 | CT ---
EXAMINATION TYPE: CT abdomen pelvis wo con DATE OF EXAM: 02/05/2020 COMPARISON: Prior CT 07/19/2018 HISTORY: Follow up renal cancer. Bilateral flank pain CT DLP: 651 mGycm Automated exposure control for dose reduction was used. TECHNIQUE: Helical acquisition of images from the lung bases through the pelvis. FINDINGS: Lack of intravenous contrast could compromise sensitivity. LUNG BASES: No significant abnormality is appreciated. AORTA: No significant abnormality is appreciated. LIVER/GB: Patient is post cholecystectomy, liver shows no mass on this noncontrast exam. PANCREAS: No significant abnormality is seen. SPLEEN: Borderline enlarged as on prior. ADRENALS: No significant interval change is seen, low dense left adrenal mass again seen a right adre nal gland is stable. KIDNEYS: Postop changes are noted to the lower right kidney REPRODUCTIVE ORGANS: Right ovarian cystic lesion measures approximately 5 cm, there is some associat ed septation. URINARY BLADDER: No significant abnormality is seen. BOWEL: No significant abnormality is seen. FREE AIR: No Free Air is visible. ASCITES: None visible. PELVIC ADENOPATHY: None visualized. RETROPERITONEAL ADENOPATHY: No Retroperitoneal Adenopathy visible. OSSEOUS STRUCTURES: No significant abnormality is seen. IMPRESSION: POSTOP CHANGES TO THE RIGHT KIDNEY. NONCONTRAST EXAM. ABNORMAL CYSTIC LESION RIGHT ADNEXA, CONSIDER G YN CONSULT.
== END | disposition home or self-care (01) ==
LOC: RADCTMAIN 11:32
PROVIDERS: ATTEND Urology
DX: N85.8 Other specified noninflammatory disorders of uterus (principal); C64.1 Malignant neoplasm of right kidney, except renal pelvis; Z98.890 Other specified postprocedural states; Z88.8 Allergy status to other drugs, medicaments and biological substances; Z88.5 Allergy status to narcotic agent; Z88.1 Allergy status to other antibiotic agents
CPT/HCPCS: 74176

== ENCOUNTER → 2020-08-21 | Outpatient (CLI) | payer MEDICARE ==
--- NOTE | 2020-08-21 15:35 | CT ---
EXAMINATION TYPE: CT abdomen pelvis wo con DATE OF EXAM: 08/21/2020 COMPARISON: 02/05/2020 HISTORY: Renal cancer. CT DLP: 915 mGycm Automated exposure control for dose reduction was used. Images obtained from the diaphragm to the floor the pelvis without contrast. Lung bases are clear. There is no pleural effusion. Heart size is normal. There is no pericardial eff usion. There are clips from cholecystectomy. Liver and spleen are intact. There is no pancreatic mass. The s tomach is intact. The bile ducts are not dilated. There is lobulated low-density left adrenal mass that measures 3 cm. Kidneys have normal size. There is some linear calcification of the cortex on the anterior right kidney. This could be postsurgical c hanges. There is also fat-containing mass on the lower anterior lateral aspect of the right kidney. T his measures 3 cm and unchanged. The left kidney has normal size and contour. There is no hydronephro sis. There is no retroperitoneal adenopathy. The ureters are not dilated. Appendix appears normal. The bladder distends smoothly. There is no inguinal hernia. There are bilateral multiple ovary and cy sts. The largest is on the right side and measures almost 5 cm. There is no free fluid in the pelvis. Uterus is anteverted. The lumbar vertebra have normal alignment. There is no compression fracture. B flora pelvis appears intact. The hip joints are intact. There is posterior L3-4 lumbar disc herniation with some mild encroachment on the spinal canal. I see no focal bone destruction. Unchanged. There is no mesenteric edema. There is no ascites or free air. There is no sign of bowel obstruction. IMPRESSION: Fat-containing mass lower pole right kidney consistent with an angiomyolipoma or posttreatment change s. Unchanged. Right renal calcification unchanged. No increasing renal density compared to old exam. Normal appendix. Bilateral ovarian cysts overall not significantly different than old exam.
== END | disposition home or self-care (01) ==
LOC: RADCTMAIN 12:50
PROVIDERS: ATTEND Urology
DX: C64.9 Malignant neoplasm of unspecified kidney, except renal pelvis (principal); N83.201 Unspecified ovarian cyst, right side; N83.202 Unspecified ovarian cyst, left side; N28.89 Other specified disorders of kidney and ureter
CPT/HCPCS: 74176

== ENCOUNTER → 2020-10-22 | Outpatient (CLI) | payer MEDICARE ==
--- NOTE | 2020-10-23 07:45 | US ---
EXAMINATION TYPE: US carotid duplex BILAT DATE OF EXAM: 10/22/2020 COMPARISON: CLINICAL HISTORY: I65.29 carotid stenosis. HTN controlled with meds EXAM MEASUREMENTS: RIGHT: Peak Systolic Velocity (PSV) cm/sec ----- Right CCA: 77.3 ----- Right ICA: 125.0 ----- Right ECA: 118.0 ICA/CCA ratio: 1.6 RIGHT: End Diastole cm/sec ----- Right CCA: 16.9 ----- Right ICA: 36.4 ----- Right ECA: 14.9 LEFT: Peak Systolic Velocity (PSV) cm/sec ----- Left CCA: 73.0 ----- Left ICA: 119.0 ----- Left ECA: 141.0 ICA/CCA ratio: 1.6 LEFT: End Diastole cm/sec ----- Left CCA: 15.9 ----- Left ICA: 35.2 ----- Left ECA: 22.7 VERTEBRALS (direction of flow): Right Vertebral: Antegrade Left Vertebral: Antegrade Rhythm: Normal Plaque visualized in bilateral bulbs. Left elevated ECA velocity. No significant stenosis. IMPRESSION: No sonographic evidence for hemodynamically significant stenosis of the bilateral carotid arteries. A therosclerosis is present. Criteria for Assigning % of Stenosis / Diameter reduction (Estimation based on the indirect measurements of the internal carotid artery velocities (ICA PSV). 1. Normal (no stenosis)=ICA PSV < 125 cm/s: ratio < 2.0: ICA EDV<40 cm/s. 2. Less than 50% stenosis=ICA PSV < 125 cm/s: ratio < 2.0: ICA EDV<40 cm/s. 3. 50 to 69% stenosis=ICA PSV of 125 to 230 cm/s: ration 2.0 ? 4.0: ICA EDV 40-100 cm/s. 4. Greater than 70% stenosis to near occlusion= ICA PSV > 230 cm/s: ratio > 4.0: ICA EDV > 100 cm/s. 5. Near occlusion= ICA PSV velocities may be low or undetectable: variable ratio and ICA EDV. 6. Total occlusion=unable to detect flow.
== END | disposition home or self-care (01) ==
LOC: RADUSWWP 15:32
PROVIDERS: ATTEND Family Medicine
DX: I65.23 Occlusion and stenosis of bilateral carotid arteries (principal); I10 Essential (primary) hypertension
CPT/HCPCS: 93880

== ENCOUNTER 2021-09-07 13:41 | Emergency (ER) | payer MEDICARE ==
[2021-09-07 15:55] VITALS: BP 133/64; PULSE 82; RESP 16; TEMP 98.5
--- NOTE | 2021-09-07 16:39 | XR ---
EXAMINATION TYPE: XR Hip Complete RT DATE OF EXAM: 09/07/2021 CLINICAL HISTORY: Right hip pain for 4 months TECHNIQUE: AP and frogleg views of the right hip are obtained. COMPARISON: CT abdomen/pelvis 08/21/2020 FINDINGS: There is no acute fracture/dislocation evident in the right hip. Moderate degenerative gordy nges of the right hip with joint space loss, osteophytosis, and subchondral cystic changes. Scattered atherosclerotic vascular calcifications are seen in the location of the superficial femoral artery. IMPRESSION: 1. No acute osseous abnormality. 2. Moderate degenerative changes of the right hip.
--- NOTE | 2021-09-07 16:43 | ED ---
General Adult HPI - General Chief complaint: Back Pain/Injury Stated complaint: Hip/waist pain Source: patient Mode of arrival: ambulatory Limitations: no limitations - History of Present Illness Initial comments: This 66-year-old female presents complaining of right hip pain. She states that it is been present for 3 days. She denies any actual injury or overuse. She states that when she stands up on it and started to cause her pain. This seems worse with any ambulation. She did have some right lower back pain several days prior but this seems to have improved. She has occasional slight numbness to her proximal right leg. She denies any previous similar history. She denies any flank pain. There is no fevers or chills. There is no urinary symptoms. She still is able to ambulate but states that it is fairly painful. She has tried Tylenol with limited relief. No other complaints or modifying factors. - Related Data Home Medications Medication Instructions Recorded Confirmed Simvastatin [Zocor] 40 mg PO HS 06/11/16 11/23/18 allopurinoL [Zyloprim] 300 mg PO HS 06/11/16 11/23/18 sitaGLIPtin PHOS/metFORMIN HCL 1 tab PO BID 06/11/16 11/23/18 [Janumet 50-1,000 mg Tablet] Enalapril [Vasotec] 10 mg PO DAILY 11/15/18 11/23/18 Loperamide [Imodium] 4 mg PO QID PRN 11/15/18 11/23/18 Magnesium Oxide [Mag-Ox] 500 mg PO DAILY 11/15/18 11/23/18 Multivit-Min/Iron/Folic/Lutein 1 tab PO DAILY 11/15/18 11/23/18 [Centrum Silver Women Tablet] Ondansetron [Zofran] 4 mg PO Q8HR PRN 11/15/18 11/23/18 Zolpidem [Ambien] 10 mg PO HS PRN 11/15/18 11/23/18 Mometasone Furoate [Mometasone 1 applic TOPICAL DAILY PRN 11/21/18 11/23/18 Furoate 0.1%] Previous Rx's Medication Instructions Recorded Ketorolac [Toradol] 10 mg PO Q6HR #20 tab 11/25/18 predniSONE [Deltasone] 40 mg PO DAILY #8 tab 11/25/18 Ibuprofen [Motrin] 800 mg PO Q8H PRN #20 tab 09/07/21 traMADol HCl [Ultram] 50 - 100 mg PO Q6H PRN #15 tab 09/07/21 Allergies Allergy/AdvReac Type Severity Reaction Status Date / Time atropine [From Lomotil] Allergy Swelling Verified 09/07/21 15:55 diphenoxylate [From Lomotil] Allergy Swelling Verified 09/07/21 15:55 codeine AdvReac Unknown Nausea & Verified 09/07/21 15:55 Vomiting levofloxacin [From Levaquin] AdvReac Nausea & Verified 09/07/21 15:55 Vomiting metronidazole [From Flagyl] AdvReac Nausea & Verified 09/07/21 15:55 Vomiting Review of Systems ROS Statement: Those systems with pertinent positive or pertinent negative responses have been documented in the HPI. ROS Other: All systems not noted in ROS Statement are negative. Past Medical History Past Medical History: Cancer, COPD, Diabetes Mellitus, Fibromyalgia, Hyperlipidemia, Hypertension, Renal Disease Additional Past Medical History / Comment(s): colitis w/DIARRHEA., MELANOMA, STATES Lingual Tonsilar Tissue, MASS AT BASE OF TONGUE -FEELS LIKE SHE HAS SOMETHING IN HER THROAT-sees ENT every 6 months to monitor History of Any Multi-Drug Resistant Organisms: None Reported Past Surgical History: Cholecystectomy, Orthopedic Surgery, Tonsillectomy Additional Past Surgical History / Comment(s): LEFT ROTATOR CUFF, RT KNEE SURGERY, SKIN CA, MARIO EAR SURGERY-stapedectomy mario Past Anesthesia/Blood Transfusion Reactions: Postoperative Nausea & Vomiting (PONV) Past Psychological History: No Psychological Hx Reported Smoking Status: Current every day smoker Past Alcohol Use History: None Reported Past Drug Use History: None Reported - Past Family History Mother Family Medical History: No Reported History, Dementia Additional Family Medical History / Comment(s): PARKINSONS Brother(s) Family Medical History: Deep Vein Thrombosis (DVT), Myocardial Infarction ([place]), Vascular Disorder Additional Family Medical History / Comment(s): has had mario. carotid end artectomies Father Family Medical History: Diabetes Mellitus General Exam - General Exam Comments Initial Comments: GENERAL: The patient is well nourished and well hydrated. VITAL SIGNS: Heart rate, blood pressure, respiratory rate reviewed as recorded in nurse's notes. EYES: Pupils are round and reactive. Extraocular movements are intact. No conjunctival / lid redness or swelling. ABDOMEN: Abdomen soft without tenderness. No palpable masses or organomegaly. No peritoneal signs. No abdominal wall swelling or ecchymosis. EXTREMITIES: There is some slight tenderness noted to the right hip. There is good range of motion. No significant back tenderness. Normal muscle tone and function. No thoracolumbar tenderness. Patient is ambulatory but has slight limp. NEUROLOGIC: Sensation is grossly intact. Cranial nerve exam reveals face is symmetrical, tongue is midline, speech is clear. SKIN: No abrasions or ecchymosis is noted. No induration or masses noted. PSYCHIATRIC: Alert and oriented. Appropriate behavior and judgment. Limitations: no limitations Course Vital Signs 09/07/21 15:53 Temperature 98.5 F Pulse Rate 82 Respiratory 16 Rate Blood Pressure 133/64 O2 Sat by Pulse 100 Oximetry Medical Decision Making - Medical Decision Making The patient was seen and examined. X-rays were taken of the right hip. These do show fairly advanced arthritic changes. No fracture is identified. It is felt as though her pain is related to her right hip. Her arthritis may be flared. It is felt as though she would benefit from nonsteroidal anti- inflammatory medications and pain medications. She also would benefit from orthopedic follow-up. [facility]. She states that she has an appointment with her primary care in 3 days and will preferably asked for their recommendation for orthopedics. Return parameters are discussed. Disposition Clinical Impression: Right hip pain, Arthritis of right hip Disposition: HOME SELF-CARE Condition: Good Instructions (If sedation given, give patient instructions): Osteoarthritis (ED), Hip Pain (ED) Prescriptions: Ibuprofen [Motrin] 800 mg PO Q8H PRN #20 tab PRN Reason: Pain traMADol HCl [Ultram] 50 - 100 mg PO Q6H PRN #15 tab PRN Reason: Pain Is patient prescribed a controlled substance at d/c from ED?: Yes When asked, does pt state using other controlled substances?: No If prescribed controlled substance>3 days was MAPS reviewed?: Prescribed <3 Days Referrals: Saud Alvarado MD [Primary Care Provider] - 1-2 days Time of Disposition: 16:54
== END 2021-09-07 17:15 | disposition home or self-care (01) ==
LOC: EC 13:41
DX: M16.11 Unilateral primary osteoarthritis, right hip (principal); J44.9 Chronic obstructive pulmonary disease, unspecified; E11.9 Type 2 diabetes mellitus without complications; I10 Essential (primary) hypertension; E78.5 Hyperlipidemia, unspecified; F17.200 Nicotine dependence, unspecified, uncomplicated; Z88.5 Allergy status to narcotic agent; Z88.1 Allergy status to other antibiotic agents
CPT/HCPCS: 73502

== ENCOUNTER → 2021-09-09 | Outpatient (CLI) | payer MEDICARE ==
--- NOTE | 2021-09-09 14:30 | CTL ---
EXAMINATION TYPE: CT Low Dose Lung DATE OF EXAM ORDERED: 09/09/2021 HISTORY: Personal tobacco history use. Lung cancer screening CT DLP: 121.[address] CTDI: 3.60 mGy Automated exposure control for dose reduction was used. SCREENING VISIT: Initial COMPARISON: None TECHNIQUE: Low dose computed tomography scan was performed through the chest at 1 mm thick sections a nd reconstructed images in the coronal plane at [address] DIAGNOSTIC QUALITY: Satisfactory FINDINGS: LUNG NODULES: None. LUNGS: COPD: Severity: None Fibrosis: Severity: None Lymph nodes: None Other findings: None RIGHT PLEURAL SPACE: Effusion: None Calcification: None Thickening: None Pneumothorax: None LEFT PLEURAL SPACE: Effusion: None Calcification: None Thickening: None Pneumothorax: None HEART: Heart Size: Normal Coronary calcification: Mild focal Pericardial effusion: None OTHER FINDINGS: Upper abdomen: Normal Bony thorax: Normal Supraclavicular region: Normal Other: Ascending thoracic aorta at the level the main pulmonary artery measures 3.1 cm. The main pul monary artery at the bifurcation measures 2.7 cm. There may be enlargement of the left adrenal gland . IMPRESSION: 1. No suspicious changes to suggest primary or metastatic neoplasm. 2. Enlarged left adrenal gland. Workup can be performed with contrast CT abdomen FOLLOW UP CT CHEST RECOMMENDATION: Follow-up low-dose CT chest [address] LUNG RAD: 1S
== END | disposition home or self-care (01) ==
LOC: RADCTMAIN 13:38
PROVIDERS: ATTEND Family Medicine
DX: Z12.2 Encounter for screening for malignant neoplasm of respiratory organs (principal); R59.0 Localized enlarged lymph nodes; Z87.891 Personal history of nicotine dependence
CPT/HCPCS: 71271

== ENCOUNTER → 2021-09-09 | Outpatient (CLI) | payer MEDICARE ==
[2021-09-09 18:19] LABS: HCT 44.9 % (37.2-46.3); HGB 14.5 g/dL (12.0-15.0); MCH 31.5 pg (27.0-32.0); MCHC 32.3 g/dL (32.0-37.0); MCV 97.6 fL (80.0-97.0); Mean Platelet Volume 10.4 fL (9.5-12.2); NRBC Per 100 WBC 0 /100 WBCS (0.0-0.0); Platelet Count 190 X 10*3/uL (140-440); RDW 12.7 % (11.5-14.5); WBC 7.63 X 10*3/uL (4.50-10.00)
[2021-09-09 18:31] LABS: Ferritin 52.2 ng/mL (10.0-291.0)
[2021-09-09 18:33] LABS: % Iron Saturation 29.99 (12.00-45.00); African American GFR (CKD) 40.1 (60.0-200.0); Albumin 4.5 g/dL (3.8-4.9); Albumin/Globulin Ratio 2.72 (1.60-3.17); Anion Gap 11.3 mmol/L (10.00-18.00); BUN/Creat Ratio 15.78 Ratio (12.00-20.00); Blood Urea Nitrogen 24.3 mg/dL (9.0-27.0); Calcium 9.4 mg/dL (8.7-10.3); Carbon Dioxide 26.2 mmol/L (20.0-27.5); Globulin 1.7 g/dL (1.6-3.3); Magnesium 1.9 mg/dL (1.5-2.4); Non-African American GFR(CKD) 34.6 (60.0-200.0); Phosphorus 3.6 mg/dL (2.4-5.1); Potassium 4.5 mmol/L (3.5-5.5); Total Bilirubin 0.3 mg/dL (0.30-1.20); Total Protein 6.2 g/dL (6.2-8.2); Uric Acid 6.3 mg/dL (2.9-7.7)
[2021-09-09 20:54] LABS: Appearance,Urine Clear (Clear); Bilirubin,Urine Negative (Negative); Blood,Urine Negative (Negative); Color,Urine Yellow (Yellow); Ketones,Urine Trace mg/dL (Negative); Nitrite,Urine Negative (Negative); Specific Gravity,Urine 1.029 (1.001-1.030)
[2021-09-09 21:02] LABS: Bacteria,Urine None Seen /HPF (None Seen)
== END | disposition home or self-care (01) ==
LOC: LABWHC1 14:11
PROVIDERS: ATTEND Internal Medicine
DX: N25.81 Secondary hyperparathyroidism of renal origin (principal); E55.9 Vitamin D deficiency, unspecified; M10.9 Gout, unspecified; D64.9 Anemia, unspecified; N39.0 Urinary tract infection, site not specified; N18.32 Chronic kidney disease, stage 3b
CPT/HCPCS: 36415; 80053; 81001; 82043; 82306; 82570; 82728; 83540; 83550; 83735; 83970; 84100; 84550; 85027

== ENCOUNTER → 2021-10-19 | Outpatient (CLI) | payer MEDICARE | END | disposition home or self-care (01) | LOC: RADCTMAIN 17:31 | PROVIDERS: ATTEND Urology | DX: C64.1 Malignant neoplasm of right kidney, except renal pelvis (principal) | CPT/HCPCS: 82565; 84520 ==

== ENCOUNTER → 2021-11-06 | Outpatient (CLI) | payer MEDICARE ==
--- NOTE | 2021-11-06 16:43 | XR ---
EXAMINATION TYPE: XR tibia fibula RT DATE OF EXAM: 11/06/2021 1:23 PM INDICATION: Patient age:Female; 66 years old; Reason for study: R22.41 R tibia swelling; COMPARISON: None TECHNIQUE: The right tibia/fibula was examined in AP and lateral projections. FINDINGS: No evidence of any acute osseous pathology or joint dislocation. Medial lower extremity sof t tissue swelling suggested. No subcutaneous gas identified. No radiopaque foreign body. Vascular scl erosis noted. IMPRESSION: No evidence of acute fracture. Medial lower extremity soft tissue swelling suggested.
== END | disposition home or self-care (01) ==
LOC: RADXRMAIN 13:08
PROVIDERS: ATTEND Family Medicine
DX: R22.41 Localized swelling, mass and lump, right lower limb (principal)

== ENCOUNTER → 2021-11-27 | Outpatient (CLI) | payer MEDICARE ==
--- NOTE | 2021-11-27 11:33 | PE ---
EXAMINATION TYPE: PET CT fusion skull to thigh DATE OF EXAM: 11/27/2021 COMPARISON: Most recent CT abdomen and pelvis August 21, 2020 and older CTs HISTORY: Right-sided kidney cancer diagnosed and treated 2018 TECHNIQUE: Following the intravenous administration of 13.16 mCi of F-18 FDG, whole body images are performed from the skull base to the midthigh. Images are reviewed on the computer in the coronal, a xial, and sagittal planes. Reconstructed rotating images are created on independent workstation and reviewed on the computer. A localization and attenuation correction CT is performed in conjunction with the PET scan. Blood glucose level equals 81 SCAN: Subsequent Scan FINDINGS: SKULL BASE AND NECK: No areas of abnormal hypermetabolic uptake. CHEST, MEDIASTINUM, AND HILAR REGION: No areas of abnormal hypermetabolic uptake. ABDOMEN AND PELVIS: Posttreatment changes to the right kidney anterolaterally with surgical sutures i n small amount of adjacent round low density possible small seroma axial images 150 through 160 show stability from most recent CT and older CTs without abnormal hypermetabolic uptake at this level. Sym metric mild uptake proximal thigh muscles could reflect inflammatory etiology. No areas of abnormal h ypermetabolic uptake clearly seen. OSSEOUS STRUCTURES: No areas abnormal hypermetabolic uptake. OTHER CT: Moderate to severe calcified plaque bilateral carotid bulb level. Focal moderate coronary a rtery calcification the LAD distribution. Cystectomy clips are redemonstrated. Additional larger clip with artifact redemonstrated. Moderate ca lcified plaque of the aorta extends into branch vessels. Persistent thin-walled cyst or cystic mass r ight pelvis measuring 5.7 x 5.2 cm presumed of ovarian origin unchanged from prior CT. IMPRESSION: No suspicious areas of abnormal hypermetabolic uptake to suggest local or metastatic neop lastic recurrence.
== END | disposition home or self-care (01) ==
LOC: RADPETMAIN 09:41
PROVIDERS: ATTEND Urology
DX: C64.1 Malignant neoplasm of right kidney, except renal pelvis (principal); D44.10 Neoplasm of uncertain behavior of unspecified adrenal gland
CPT/HCPCS: 78815; A9552

== ENCOUNTER → 2021-12-17 | Outpatient (CLI) | payer MEDICARE ==
[2021-12-17 23:29] LABS: HCT 45.8 % (37.2-46.3); HGB 14.8 g/dL (12.0-15.0); MCH 31.6 pg (27.0-32.0); MCHC 32.3 g/dL (32.0-37.0); MCV 97.7 fL (80.0-97.0); Mean Platelet Volume 9.9 fL (9.5-12.2); NRBC Per 100 WBC 0 /100 WBCS (0.0-0.0); Platelet Count 207 X 10*3/uL (140-440); RBC 4.69 X 10*6/uL (4.10-5.20); RDW 12.4 % (11.5-14.5); WBC 8.27 X 10*3/uL (4.50-10.00)
[2021-12-17 23:45] LABS: % Iron Saturation 23.27 (12.00-45.00); African American GFR (CKD) 36.3 (60.0-200.0); Albumin 4.3 g/dL (3.8-4.9); Albumin/Globulin Ratio 2.13 (1.60-3.17); Anion Gap 12.9 mmol/L (10.00-18.00); BUN/Creat Ratio 12.69 Ratio (12.00-20.00); Blood Urea Nitrogen 21.2 mg/dL (9.0-27.0); Calcium 9.3 mg/dL (8.7-10.3); Carbon Dioxide 24.6 mmol/L (20.0-27.5); Non-African American GFR(CKD) 31.3 (60.0-200.0); Phosphorus 3.6 mg/dL (2.4-5.1); Potassium 4.6 mmol/L (3.5-5.5); Total Bilirubin 0.3 mg/dL (0.30-1.20); Total Protein 6.4 g/dL (6.2-8.2); Uric Acid 5.4 mg/dL (2.9-7.7)
[2021-12-17 23:48] LABS: Appearance,Urine Clear (Clear); Bilirubin,Urine Negative (Negative); Blood,Urine Negative (Negative); Color,Urine Yellow (Yellow); Ketones,Urine Negative (Negative); Nitrite,Urine Negative (Negative); PH, Urine 5.5 (5.0-8.0); Specific Gravity,Urine 1.015 (1.001-1.030); Urobilinogen,Urine 0.2 (0.2,1.0)
[2021-12-18 00:01] LABS: Ferritin 52.9 ng/mL (10.0-291.0)
[2021-12-18 03:29] LABS: Microalbumin Creatinine Ratio <30 mg/g Creat (0-30); Urine Creatinine 41.1 mg/dL (28.0-217.0)
== END | disposition home or self-care (01) ==
LOC: LABWHC1 12:44
PROVIDERS: ATTEND Nurse Practitioner Family
DX: E55.9 Vitamin D deficiency, unspecified (principal); E27.9 Disorder of adrenal gland, unspecified; D64.9 Anemia, unspecified; M10.9 Gout, unspecified; N18.32 Chronic kidney disease, stage 3b; N39.0 Urinary tract infection, site not specified; R80.9 Proteinuria, unspecified
CPT/HCPCS: 36415; 80053; 81003; 82043; 82088; 82306; 82533; 82570; 82728; 83540; 83550; 83735; 83970; 84100; 84244; 84550; 85027

== ENCOUNTER → 2021-12-30 | Outpatient (CLI) | payer MEDICARE ==
--- NOTE | 2021-12-30 13:54 | NM ---
EXAMINATION TYPE: NM stress cardiolite complete DATE OF EXAM: 12/30/2021 COMPARISON: NONE HISTORY: Abnormal EKG TECHNIQUE: After the intravenous administration of 9.9 mCi Tc 99m Sestamibi - Cardiolite resting SPE CT images acquired 45 minutes post injection. At peak stress 24.8 mCi Tc 99m Sestamibi - Stress images obtained 5 minutes post injection The patient was stressed on the treadmill FINDINGS: No fixed defects are evident No reversible stress defects on Spect images There may be subtle mild hypokinesia of the mid to distal anterior wall. Ejection fraction is calculated to be 59% %. IMPRESSION: 1. No stress-induced ischemic change. 2. There may be some mild hypokinesia of the distal anterior wall
== END | disposition home or self-care (01) ==
LOC: RADNMMAIN 08:16
PROVIDERS: ATTEND Family Medicine
DX: R94.31 Abnormal electrocardiogram [ECG] [EKG] (principal)
CPT/HCPCS: 93017; 78452; A9500

== ENCOUNTER → 2022-01-07 | Outpatient (CLI) | payer MEDICARE ==
--- NOTE | 2022-01-08 04:53 | MR ---
EXAMINATION TYPE: MR angio neck wo con DATE OF EXAM: 01/07/2022 COMPARISON: None HISTORY: Coronary Arteriosclerosis Calcif Multiplanar multi echo angiographic images were obtained of the cervical carotid and vertebral arteri es. There is arterial flow demonstrated in both vertebral arteries. There is arterial flow in the vertebr al basilar artery system. There is arterial flow in the common internal and external carotid arteries bilaterally. Exam limited by motion. As best as one can tell there is no evidence of any significant stenosis of the carotid arteries. No significant plaque formation. IMPRESSION: Exam fails to show evidence of any significant angiographic abnormality of the cervical carotid and v ertebral arteries.
== END | disposition home or self-care (01) ==
LOC: RADMRIMAIN 17:59
PROVIDERS: ATTEND Family Medicine
DX: I25.10 Atherosclerotic heart disease of native coronary artery without angina pectoris (principal)
CPT/HCPCS: 70547

== ENCOUNTER → 2022-04-14 | Outpatient (CLI) | payer MEDICARE ==
[2022-04-14 18:28] LABS: Basophils # (A) 0.05 X 10*3/uL (0.00-0.10); Basophils % (A) 0.5 %; Eosinophils # (A) 0.22 X 10*3/uL (0.04-0.35); Eosinophils % (A) 2.4 %; HCT 49.6 % (37.2-46.3); HGB 15.8 g/dL (12.0-15.0); Immature Grans, Automated 0.6 %; Lymphocytes # (A) 1.44 X 10*3/uL (0.90-5.00); Lymphocytes % (A) 15.4 %; MCH 29.8 pg (27.0-32.0); MCHC 31.9 g/dL (32.0-37.0); MCV 93.6 fL (80.0-97.0); Mean Platelet Volume 10.5 fL (9.5-12.2); Monocytes # (A) 0.49 X 10*3/uL (0.20-1.00); Monocytes % (A) 5.3 %; NRBC Per 100 WBC 0 /100 WBCS (0.0-0.0); Neutrophils # (A) 7.07 X 10*3/uL (1.80-7.70); Neutrophils % (A) 75.8 %; Platelet Count 215 X 10*3/uL (140-440); RDW 12.7 % (11.5-14.5); WBC 9.33 X 10*3/uL (4.50-10.00)
[2022-04-14 19:27] LABS: % Iron Saturation 24.35 (12.00-45.00); African American GFR (CKD) 36.9 (60.0-200.0); Albumin 4.4 g/dL (3.8-4.9); Albumin/Globulin Ratio 2.56 (1.60-3.17); Anion Gap 12.2 mmol/L (10.00-18.00); BUN/Creat Ratio 13.52 Ratio (12.00-20.00); Blood Urea Nitrogen 22.3 mg/dL (9.0-27.0); Calcium 9.3 mg/dL (8.7-10.3); Carbon Dioxide 25.7 mmol/L (20.0-27.5); Globulin 1.7 g/dL (1.6-3.3); Non-African American GFR(CKD) 31.8 (60.0-200.0); Potassium 5.1 mmol/L (3.5-5.5); Total Bilirubin 0.4 mg/dL (0.30-1.20); Total Protein 6.1 g/dL (6.2-8.2); Uric Acid 6.2 mg/dL (2.9-7.7)
[2022-04-14 19:42] LABS: Ferritin 43.5 ng/mL (10.0-291.0)
[2022-04-14 21:20] LABS: Appearance,Urine Clear (Clear); Bilirubin,Urine Negative (Negative); Blood,Urine Negative (Negative); Color,Urine Yellow (Yellow); Ketones,Urine Trace mg/dL (Negative); Nitrite,Urine Negative (Negative); PH, Urine 5.5 (5.0-8.0); Specific Gravity,Urine 1.029 (1.001-1.030)
[2022-04-14 22:09] LABS: Microalbumin Creatinine Ratio <30 mg/g Creat (0-30)
== END | disposition home or self-care (01) ==
LOC: LABWHC1 13:05
PROVIDERS: ATTEND Nurse Practitioner Family
DX: N25.81 Secondary hyperparathyroidism of renal origin (principal); N18.32 Chronic kidney disease, stage 3b; D63.1 Anemia in chronic kidney disease; N39.0 Urinary tract infection, site not specified; E55.9 Vitamin D deficiency, unspecified; M10.9 Gout, unspecified; R80.9 Proteinuria, unspecified
CPT/HCPCS: 36415; 80053; 81003; 82043; 82306; 82570; 82728; 83540; 83550; 83735; 83970; 84100; 84550; 85025

== ENCOUNTER → 2022-05-04 | Outpatient (CLI) | payer MEDICARE ==
--- NOTE | 2022-05-04 17:30 | US ---
EXAMINATION TYPE: US kidneys/renal and bladder DATE OF EXAM: 05/04/2022 COMPARISON: PET/CT 11/27/2021 CLINICAL HISTORY: 67-year-old female C64.9 Renal cancer. Renal CA on right partial removal in 2019 TECHNIQUE: Multiple sonographic images of the kidneys and bladder are obtained. FINDINGS: EXAM MEASUREMENTS: Right Kidney: 7.0 x 3.6 x 3.5 cm Left Kidney: 9.3 x 4.1 x 3.2 cm Clamper notes: Incidental finding right ovarian cystic area with a septation measuring 5.4 x 5.4 x 6.0 cm. Right Kidney: No hydronephrosis or masses seen Left Kidney: No hydronephrosis or masses seen Bladder: anechoic Bilateral Jets seen: yes IMPRESSION: 1. No hydronephrosis. 2. No appreciable renal mass by ultrasound. 3. Incidental mildly complex 6.0 cm right ovarian cyst. This measured 6.2 cm on the 11/27/2021 PET/CT. Per consensus guidelines, in a postmenopausal female, annual ultrasound surveillance is advised.
== END | disposition home or self-care (01) ==
LOC: RADUSWWP 14:50
PROVIDERS: ATTEND Internal Medicine
DX: N83.201 Unspecified ovarian cyst, right side (principal); C64.9 Malignant neoplasm of unspecified kidney, except renal pelvis
CPT/HCPCS: 76770

== ENCOUNTER → 2022-09-30 | Outpatient (CLI) | payer MEDICARE ==
--- NOTE | 2022-09-30 13:15 | CTL ---
EXAMINATION TYPE: CT Low Dose Lung DATE OF EXAM ORDERED: 09/30/2022 HISTORY: . Lung cancer screening CT DLP: 69.[address] CTDI: 2.2 mGy Automated exposure control for dose reduction was used. SCREENING VISIT: COMPARISON: 09/09/2021 TECHNIQUE: Low dose computed tomography scan was performed through the chest at 1 mm thick sections a nd reconstructed images in multiple planes at 1 mm and [address] DIAGNOSTIC QUALITY: Satisfactory FINDINGS: Lungs are clear with no focal pneumonia or pleural effusion. No pneumothorax. No interstitial edema. No sizable pulmonary nodules. The heart size is normal and there is calcification along the aortic valve and coronary artery calcif ications. Trace pericardial fluid. Assessment for adenopathy limited. Grossly no pathologic adenopathy. Aorta normal caliber with mild a therosclerotic changes. Spleen is prominent in size measuring 13 cm. Left adrenal gland is prominent but only partially inclu ded in the exam and was prominent than the prior exam 22. Post cholecystectomy changes noted. IMPRESSION: 1. No sizable pulmonary nodule. 2. Probable left adrenal adenoma stable. CT LUNG RAD AND CT CHEST RECOMMENDATION: Lung-Rad 1 Negative: Continue annual screening with LDCT in 12 months.
== END | disposition home or self-care (01) ==
LOC: RADCTMAIN 12:02
PROVIDERS: ATTEND Family Medicine
DX: Z12.2 Encounter for screening for malignant neoplasm of respiratory organs (principal); Z87.891 Personal history of nicotine dependence
CPT/HCPCS: 71271

== ENCOUNTER → 2022-10-19 | Outpatient (CLI) | payer MEDICARE ==
--- NOTE | 2022-10-19 14:34 | CT ---
EXAMINATION TYPE: CT abdomen wo con DATE OF EXAM: 10/19/2022 COMPARISON: Head CT 11/27/[address] abdomen 08/21/2020 HISTORY: 67-year-old female C64.1, f/u renal ca TECHNIQUE: Contiguous axial scanning of the abdomen without IV contrast. Coronal and sagittal reconst ructions performed. CT DLP: 527 mGycm Automated exposure control for dose reduction was used. FINDINGS: Heart normal size without pericardial effusion. Lung bases clear without pleural effusion. Noncontrast appearance of the liver and pancreas within normal limits. Stable borderline splenomegaly at 13.9 cm. Redemonstrated low-density nodules within the bilateral adrenal glands. Largest on the left measuring 3.3 cm. Attenuation suggests benign lipid rich adrenal adenomas. Unchanged small 1.3 cm parapelvic cyst left kidney. Postsurgical changes along the anterior margin of the lower pole right kidney. The previous adjacent pararenal nodularity which had fat density back on 08/21/2020 shows increasing s oft tissue fullness. However, the overall size is unchanged at 1.8 cm. Possible progressive scarring at the site of fat necrosis. No dilated small bowel, free fluid, or free air. No mesenteric or retroperitoneal lymphadenopathy. Mo derate arthroscopic calcifications infrarenal abdominal aorta and iliac arteries. Normal appendix. Mild stool burden. No pericolonic inflammatory change. Bones: Posterior disc bulge/herniation L3-L4 mildly narrowing the spinal canal. Trace grade 1 retroli sthesis L1-L2 and L2-L3. IMPRESSION: 1. REDEMONSTRATED POSTSURGICAL CHANGE ALONG THE ANTERIOR MARGIN OF THE LOWER POLE RIGHT KIDNEY. THE A DJACENT PARARENAL NODULARITY WHICH HAD FAT DENSITY BACK ON 08/21/2020 SHOWS INCREASING SOFT TISSUE FUL LNESS. HOWEVER, THE OVERALL SIZE REMAINS UNCHANGED AT 1.8 CM. SUSPECT PROGRESSIVE SCARRING AT THE SIT E OF FAT NECROSIS. CONSIDER A 6 MONTH SURVEILLANCE FOLLOW-UP TO REASSESS. 2. OTHERWISE, NO EVIDENCE FOR RECURRENT OR METASTATIC DISEASE IN THE ABDOMEN. 3. STABLE LOW DENSITY NODULARITY OF THE ADRENAL GLANDS MEASURING UP TO 3.3 CM. FINDINGS SUGGEST BENIG N ADRENAL ADENOMAS.
== END | disposition home or self-care (01) ==
LOC: RADCTMAIN 12:34
PROVIDERS: ATTEND Urology
DX: C64.1 Malignant neoplasm of right kidney, except renal pelvis (principal); J98.4 Other disorders of lung
CPT/HCPCS: 74150

== ENCOUNTER → 2023-05-13 | Outpatient (CLI) | payer MEDICARE ==
--- NOTE | 2023-05-13 13:31 | CT ---
EXAMINATION TYPE: CT soft tissue neck wo con DATE OF EXAM: 05/13/2023 COMPARISON: 05/10/2016 HISTORY: 68-year-old female R1 3.10, unspecified dysphagia feels like something is caught in throat TECHNIQUE: Contiguous axial scanning of the soft tissues of the neck without IV contrast. Coronal and sagittal reconstructions performed. CT DLP: 435.7 mGycm Automated exposure control for dose reduction was used. FINDINGS: Visualized intracranial structures, orbits and globes, paranasal sinuses, mastoid air cells are clear . Slight rightward nasal septal deviation. Lack of IV contrast limits assessment of the vascular structures, lymph nodes, and cervical mucosal s pace. Nasopharynx appears clear. Prominent soft tissue fullness in the region of the posterior tongue base and oropharynx. Greater deg ree of soft tissue prominence in the right vallecular space. This was present on the patient's prior exam as well. Suspect extensive tonsillar hypertrophy. Epiglottis and prevertebral soft tissues are satisfactory. Gliotic and subglottic structures as well as the tracheal column and visualized upper lungs appear cl ear. Slightly heterogeneous appearance to the thyroid gland. Dedicated thyroid ultrasound can exclude any underlying nodules. Submandibular and parotid glands appear satisfactory. No cervical lymphadenopathy by CT size criteria. Prominent atherosclerotic calcifications at the left greater than right carotid bifurcations. Bones: Mild to moderate degenerative disc disease C5-C6. IMPRESSION: 1. EXTENSIVE SOFT TISSUE THICKENING IN THE REGION OF THE OROPHARYNX INCLUDING THE POSTERIOR TONGUE BA SE. SUSPECT EXTENSIVE TONSILLAR HYPERTROPHY ESPECIALLY OF THE RIGHT GREATER THAN LEFT LINGUAL TONSILS . THIS WAS PRESENT ON THE 05/10/2016 EXAM WELL. CORRELATE TO HOW MUCH OF THIS CONTRIBUTES TO THE PATIENT'S SYMPTOMS. CONSIDER ENT EVALUATION. 2. PROMINENT ATHEROSCLEROTIC CALCIFICATIONS AT THE LEFT GREATER THAN RIGHT CAROTID BIFURCATIONS.
== END | disposition home or self-care (01) ==
LOC: RADCTMAIN 12:27
PROVIDERS: ATTEND Family Medicine
DX: I65.23 Occlusion and stenosis of bilateral carotid arteries (principal); M79.89 Other specified soft tissue disorders; R13.10 Dysphagia, unspecified
CPT/HCPCS: 70490; Q9967

== ENCOUNTER 2023-05-30 08:54 | Day surgery (SDC) | payer MEDICARE ==
[2023-05-30 09:55] LABS: Glucose,Whole Blood 218 mg/dL (70-110)
[2023-05-30] MEDS: LACTATED RINGERS 1,000 ML IV SCH (10:07)
[2023-05-30] MEDS: INSULIN ASPART (NovoLOG) 100 UNIT/ML VIAL SQ ONE (10:08)
[2023-05-30 10:14] VITALS: TEMP 97.8
[2023-05-30] MEDS ORDERED: LIDOCAINE 1% INJ 10MG/ML (20 ML MDV) ONE (10:25)
[2023-05-30] MEDS ORDERED: PROPOFOL 10 MG/ML 20 ML VIAL IV ONE (10:25)
--- NOTE | 2023-05-30 10:26 | P.GSHP ---
History of Present Illness H&P Date: 05/30/23 Chief Complaint: Gerd Is a 15-year-old female complains of GERD and dysphagia. Patient presented for EGD. Past Medical History Past Medical History: Cancer, COPD, Diabetes Mellitus, Fibromyalgia, Hyperlipidemia, Hypertension, Renal Disease Additional Past Medical History / Comment(s): NIDDM. LOW GFR. KIDNEY CANCER (2019). colitis w/DIARRHEA. MELANOMA, BACK. STATES Lingual Tonsilar Tissue, MASS AT BASE OF TONGUE -FEELS LIKE SHE HAS SOMETHING IN HER THROAT (CT SCAN 05/18/23) AND NOW EGD. History of Any Multi-Drug Resistant Organisms: None Reported Past Surgical History: Cholecystectomy, Orthopedic Surgery, Tonsillectomy Additional Past Surgical History / Comment(s): PARTIAL NEPHRECTOMY OF RIGHT KIDNEY FOR CANCER ([facility], 2019). LEFT ROTATOR CUFF, RT KNEE SURGERY, SKIN CA, MARIO EAR SURGERY-stapedectomy mario Past Anesthesia/Blood Transfusion Reactions: Postoperative Nausea & Vomiting (P ONV) Past Psychological History: No Psychological Hx Reported Smoking Status: Current every day smoker Past Alcohol Use History: None Reported Additional Past Alcohol Use History / Comment(s): SMOKING 10 CIGARETTES PER DAY. HX OF 1-2 PPD. HAS BEEN SMOKING FOR APPROX 43 YEARS. Past Drug Use History: None Reported - Past Family History Mother Family Medical History: No Reported History, Dementia Additional Family Medical History / Comment(s): PARKINSONS Brother(s) Family Medical History: Deep Vein Thrombosis (DVT), Myocardial Infarction (CT), Vascular Disorder Additional Family Medical History / Comment(s): has had mario. carotid endartectomies Father Family Medical History: Diabetes Mellitus Medications and Allergies Home Medications Medication Instructions Recorded Confirmed Type Simvastatin [Zocor] 40 mg PO HS 06/11/16 05/26/23 History Loperamide [Imodium] 4 mg PO QID PRN 11/15/18 05/26/23 History Dapagliflozin Propanediol [Farxiga] 10 mg PO QAM 05/26/23 05/26/23 History Finerenone [Kerendia] 10 mg PO 1500 05/26/23 05/26/23 History Fluticasone/Umeclidin/Vilanter 1 dose INHALATION QAM 05/26/23 05/26/23 History [Trelegy Ellipta 200-62.5-25] Glimepiride 2 mg PO BID 05/26/23 05/26/23 History Ipratropium Hinckley 1 dose INHALATION HS 05/26/23 05/26/23 History Omeprazole 40 mg PO SUMOWEFR 05/26/23 05/26/23 History Repaglinide [Prandin] 2 mg PO BID 05/26/23 05/26/23 History amLODIPine [Norvasc] 5 mg PO QAM 05/26/23 05/26/23 History calcitrioL 0.25 mcg PO DAILY 05/26/23 05/26/23 History Allergies Allergy/AdvReac Type Severity Reaction Status Date / Time atropine [From Lomotil] Allergy Swelling Verified 05/26/23 12:12 diphenoxylate [From Lomotil] Allergy Swelling Verified 05/26/23 12:12 codeine AdvReac Unknown Nausea & Verified 05/26/23 12:12 Vomiting levofloxacin [From Levaquin] AdvReac Nausea & Verified 05/26/23 12:12 Vomiting metronidazole [From Flagyl] AdvReac Nausea & Verified 05/26/23 12:12 Vomiting Surgical - Exam Vital Signs Temp Pulse Resp BP Pulse Ox 97.8 F 85 20 157/78 97 05/30/23 09:54 05/30/23 09:54 05/30/23 09:54 05/30/23 09:54 05/30/23 09:54 - General well developed, well nourished, no distress - Eyes PERRL - ENT normal pinna - Neck no masses - Respiratory normal expansion - Cardiovascular Rhythm: regular - Abdomen Abdomen: soft, non tender Results - Labs Abnormal Lab Results - Last 24 Hours (Table) 05/30/23 Range/Units 09:48 POC Glucose (mg/dL) 218 H (70-110) mg/dL Assessment and Plan Assessment: GERD, dysphagia. Will perform EGD.
--- NOTE | 2023-05-30 10:39 | P.OP ---
Date of Procedure: 05/30/23 Preoperative Diagnosis: Gerd Postoperative Diagnosis: Antral gastritis Small sliding hiatal hernia Mild esophagitis Procedure(s) Performed: EGD Anesthesia: MAC Surgeon: Young Love Pathology: other (Antrum, esophagus) Condition: stable Disposition: PACU Description of Procedure: The patient was placed on the endoscopy table in the lateral position. She received IV sedation. The gas close placed oropharynx passed in the esophagus and the stomach. Scope was placed through the pylorus. The first and second portion of the duodenum appeared normal. The scope was then brought back to the antrum this appeared mildly inflamed. A biopsy was performed. The scope was then retroflexed remainder the stomach appeared normal. There was a small sliding hiatal hernia. The GE junction was at 40 cm. The distal esophagus appeared mildly Flaim. A biopsy performed. The proximal esophagus appeared normal. Scope withdrawn for the patient.
[2023-05-30 10:45] VITALS: RESP 16
[2023-05-30 11:06] LABS: Glucose,Whole Blood 210 mg/dL (70-110)
[2023-05-30 11:15] VITALS: BP 149/75; PULSE 100
== END 2023-05-30 11:09 | disposition home or self-care (01) ==
LOC: ORWHC2ENDO 08:54
PROVIDERS: ATTEND Surgery
DX: K29.50 Unspecified chronic gastritis without bleeding (principal); K21.00 Gastro-esophageal reflux disease with esophagitis, without bleeding; K44.9 Diaphragmatic hernia without obstruction or gangrene; J44.9 Chronic obstructive pulmonary disease, unspecified; M79.7 Fibromyalgia; I10 Essential (primary) hypertension; E78.5 Hyperlipidemia, unspecified; E11.9 Type 2 diabetes mellitus without complications; F17.210 Nicotine dependence, cigarettes, uncomplicated; Z79.84 Long term (current) use of oral hypoglycemic drugs; Z85.528 Personal history of other malignant neoplasm of kidney; Z85.820 Personal history of malignant melanoma of skin; Z88.1 Allergy status to other antibiotic agents; Z88.5 Allergy status to narcotic agent; Z90.49 Acquired absence of other specified parts of digestive tract; Z79.899 Other long term (current) drug therapy; Z88.8 Allergy status to other drugs, medicaments and biological substances
CPT/HCPCS: 43239; J2001; J2704; 88305

== ENCOUNTER → 2023-06-22 | Outpatient (CLI) | payer MEDICARE ==
[2023-06-22 16:50] LABS: HCT 44.7 % (37.2-46.3); HGB 15.2 g/dL (12.0-15.0); MCH 29.9 pg (27.0-32.0); MCV 87.8 FL (80.0-97.0); Mean Platelet Volume 10.2 FL (9.5-12.2); NRBC Per 100 WBC 0 X 10*3/uL (0.00-0.01); Platelet Count 183 X 10*3/uL (140-440); RBC 5.09 X 10*6/uL (4.10-5.20); RDW 12.3 % (11.5-14.5); WBC 10.61 X 10*3/uL (4.50-10.00)
[2023-06-22 17:24] LABS: % Iron Saturation 17.11 (12.00-45.00); ALT 10 U/L (8-44); AST 16 U/L (13-35); Albumin 4.3 g/dL (3.8-4.9); Albumin/Globulin Ratio 2.15 Ratio (1.60-3.17); Alkaline Phosphatase 103 U/L (41-126); BUN/Creat Ratio 10.56 Ratio (12.00-20.00); Blood Urea Nitrogen 16.9 mg/dL (9.0-27.0); Calcium 9.3 mg/dL (8.7-10.3); Carbon Dioxide 23.9 mmol/L (21.6-31.8); Chloride 104 mmol/L (96-109); Ferritin 41.4 ng/mL (10.0-291.0); Glucose 239 mg/dL (70-110); Iron 52 UG/DL (50-170); Phosphorus 3.5 mg/dL (2.4-5.1); Potassium 4.6 mmol/L (3.5-5.5); Sodium 140 mmol/L (135-145); Total Bilirubin 0.5 mg/dL (0.3-1.2); Total Iron Binding Capacity 304 UG/DL (228-460); Total Protein 6.3 g/dL (6.2-8.2); Uric Acid 6.7 mg/dL (2.9-7.7)
[2023-06-22 18:52] LABS: Microalbumin Creatinine Ratio <26 mg/g Cr (0-30)
[2023-06-23 14:23] LABS: Appearance,Urine Clear (Clear); Bilirubin,Urine Negative (Negative); Blood,Urine Negative (Negative); Color,Urine Yellow (Yellow); Ketones,Urine Negative (Negative); Nitrite,Urine Negative (Negative); PH, Urine 5.5; Specific Gravity,Urine 1.018 (1.001-1.030); Urobilinogen,Urine 0.2 E.U./DL
== END | disposition home or self-care (01) ==
LOC: LABWHC1 13:29
PROVIDERS: ATTEND Internal Medicine
DX: E55.9 Vitamin D deficiency, unspecified (principal); M10.9 Gout, unspecified; N39.0 Urinary tract infection, site not specified; N18.32 Chronic kidney disease, stage 3b; D63.1 Anemia in chronic kidney disease; R80.9 Proteinuria, unspecified
CPT/HCPCS: 36415; 80053; 81003; 82043; 82306; 82570; 82728; 83540; 83550; 83735; 83970; 84100; 84550; 85027

== ENCOUNTER → 2023-08-01 | Outpatient (CLI) | payer MEDICARE | END | disposition home or self-care (01) | LOC: LABWHC1 11:46 | PROVIDERS: ATTEND Obstetrics & Gynecology | DX: N83.201 Unspecified ovarian cyst, right side (principal) | CPT/HCPCS: 36415; 86304 ==

== ENCOUNTER → 2023-10-03 | Outpatient (CLI) | payer MEDICARE ==
--- NOTE | 2023-10-03 21:20 | CTL ---
EXAMINATION TYPE: CT Low Dose Lung DATE OF EXAM ORDERED: 10/03/2023 HISTORY: 68-year-old female with Z12.2, F17.210, current smoker with 50 pack-year history. Lung cance r screening CT DLP: 79.[address] CTDI: 2.4 mGy Automated exposure control for dose reduction was used. SCREENING VISIT: Annual follow-up COMPARISON: 09/30/2022 TECHNIQUE: Low dose computed tomography scan was performed through the chest at 1 mm thick sections a nd reconstructed images in multiple planes at 1 mm and [address] DIAGNOSTIC QUALITY: Satisfactory FINDINGS: Heart normal size without pericardial effusion. LAD and circumflex coronary artery calcifications ar e present. Mild atherosclerotic arch calcifications with conventional arch vessel branching anatomy. No thoracic lymphadenopathy by CT size criteria. Mild diffuse bronchial wall thickening. Mild emphysematous change. Some strandy atelectasis in the in ferior lingular. No consolidation or pleural effusion. No suspicious pulmonary nodules. Visualized upper abdomen shows mild splenomegaly at 14.1 cm. Partially visualized low-density left ad renal mass measuring at least 3.1 cm. Attenuation characteristics of -15 Hounsfield units compatible with lipid rich adrenal adenoma. Bones: No osseous destructive process. IMPRESSION: 1. LungRADS 1, negative. No suspicious pulmonary nodules 2. COPD with mild emphysema. Recommend smoking cessation. 3. Stable 3.1 cm left adrenal adenoma. 4. Mild splenomegaly at 14.[address] LUNG RAD AND CT CHEST RECOMMENDATION: Lung-Rad 2 Benign Appearance or Behavior: Continue annual sc reening with LDCT in 12 months. S Modifier (other clinically significant findings): None
== END | disposition home or self-care (01) ==
LOC: RADCTMAIN 13:28
PROVIDERS: ATTEND Family Medicine
DX: Z12.2 Encounter for screening for malignant neoplasm of respiratory organs (principal); J44.9 Chronic obstructive pulmonary disease, unspecified; J43.9 Emphysema, unspecified; D35.02 Benign neoplasm of left adrenal gland; R16.1 Splenomegaly, not elsewhere classified; F17.210 Nicotine dependence, cigarettes, uncomplicated
CPT/HCPCS: 71271

== ENCOUNTER → 2023-10-26 | Outpatient (CLI) | payer MEDICARE ==
[2023-10-26 19:16] LABS: Basophils # (A) 0.09 X 10*3/uL (0.00-0.10); Basophils % (A) 0.9 %; Eosinophils # (A) 0.31 X 10*3/uL (0.04-0.35); Eosinophils % (A) 3.1 %; HCT 46.2 % (37.2-46.3); HGB 15.3 g/dL (12.0-15.0); Lymphocytes # (A) 1.78 X 10*3/uL (0.90-5.00); Lymphocytes % (A) 17.7 %; MCH 28.9 pg (27.0-32.0); MCHC 33.1 g/dL (32.0-37.0); MCV 87.2 FL (80.0-97.0); Mean Platelet Volume 10.3 FL (9.5-12.2); Monocytes # (A) 0.53 X 10*3/uL (0.20-1.00); Monocytes % (A) 5.3 %; NRBC Per 100 WBC 0 X 10*3/uL (0.00-0.01); Neutrophils # (A) 7.25 X 10*3/uL (1.80-7.70); Neutrophils % (A) 72.1 %; Platelet Count 213 X 10*3/uL (140-440); RDW 12.9 % (11.5-14.5); WBC 10.05 X 10*3/uL (4.50-10.00)
[2023-10-27 03:37] LABS: Microalbumin Creatinine Ratio <16 mg/g Cr (0-30); Urine Creatinine 74.9 mg/dL (28.0-217.0)
[2023-10-27 04:00] LABS: Phosphorus 3.7 mg/dL (2.4-5.1); Uric Acid 6.7 mg/dL (2.9-7.7)
[2023-10-27 04:01] LABS: % Iron Saturation 17.59 (12.00-45.00); ALT 8 U/L (8-44); AST 13 U/L (13-35); Albumin 4.4 g/dL (3.8-4.9); Albumin/Globulin Ratio 2.44 Ratio (1.60-3.17); Alkaline Phosphatase 97 U/L (41-126); BUN/Creat Ratio 13.36 Ratio (12.00-20.00); Blood Urea Nitrogen 18.7 mg/dL (9.0-27.0); Calcium 9.6 mg/dL (8.7-10.3); Carbon Dioxide 25.8 mmol/L (21.6-31.8); Chloride 107 mmol/L (96-109); Ferritin 29.5 ng/mL (10.0-291.0); Globulin 1.8 g/dL (1.6-3.3); Glucose 160 mg/dL (70-110); Iron 54 UG/DL (50-170); Potassium 4.6 mmol/L (3.5-5.5); Sodium 147 mmol/L (135-145); Total Bilirubin 0.4 mg/dL (0.3-1.2); Total Iron Binding Capacity 307 UG/DL (228-460); Total Protein 6.2 g/dL (6.2-8.2)
[2023-10-27 04:06] LABS: Appearance,Urine Clear (Clear); Bilirubin,Urine Negative (Negative); Blood,Urine Negative (Negative); Color,Urine Yellow (Yellow); Ketones,Urine Negative (Negative); Nitrite,Urine Negative (Negative); Specific Gravity,Urine 1.025 (1.001-1.030); Urobilinogen,Urine 0.2 E.U./DL
== END | disposition home or self-care (01) ==
LOC: LABWHC1 15:44
PROVIDERS: ATTEND Internal Medicine
DX: E55.9 Vitamin D deficiency, unspecified (principal); N39.0 Urinary tract infection, site not specified; N25.81 Secondary hyperparathyroidism of renal origin; M10.9 Gout, unspecified; N18.32 Chronic kidney disease, stage 3b; D63.1 Anemia in chronic kidney disease; R80.9 Proteinuria, unspecified
CPT/HCPCS: 36415; 80053; 81003; 82043; 82306; 82570; 82728; 83540; 83550; 83735; 83970; 84100; 84550; 85025

== ENCOUNTER → 2024-02-27 | Outpatient (CLI) | payer MEDICARE ==
[2024-02-27 18:43] LABS: Appearance,Urine Clear (Clear); Bilirubin,Urine Negative (Negative); Blood,Urine Negative (Negative); Color,Urine Yellow (Yellow); Ketones,Urine Negative (Negative); Nitrite,Urine Negative (Negative); PH, Urine 5.5; Urobilinogen,Urine 0.2 E.U./DL
[2024-02-27 19:13] LABS: HCT 44.2 % (37.2-46.3); HGB 14.6 g/dL (12.0-15.0); MCH 29.5 pg (27.0-32.0); MCV 89.3 FL (80.0-97.0); Mean Platelet Volume 10.3 FL (9.5-12.2); NRBC Per 100 WBC 0 X 10*3/uL (0.00-0.01); Platelet Count 229 X 10*3/uL (140-440); RBC 4.95 X 10*6/uL (4.10-5.20); RDW 12.9 % (11.5-14.5)
[2024-02-27 20:25] LABS: % Iron Saturation 13.48 (12.00-45.00); ALT 9 U/L (8-44); AST 13 U/L (13-35); Albumin 4.3 g/dL (3.8-4.9); Albumin/Globulin Ratio 2.69 Ratio (1.60-3.17); Alkaline Phosphatase 98 U/L (41-126); BUN/Creat Ratio 9.79 Ratio (12.00-20.00); Blood Urea Nitrogen 13.7 mg/dL (9.0-27.0); Carbon Dioxide 24.9 mmol/L (21.6-31.8); Chloride 108 mmol/L (96-109); Ferritin 33.2 ng/mL (10.0-291.0); Globulin 1.6 g/dL (1.6-3.3); Glucose 157 mg/dL (70-110); Iron 43 UG/DL (50-170); Magnesium 1.8 mg/dL (1.5-2.4); Phosphorus 3.9 mg/dL (2.4-5.1); Potassium 4.4 mmol/L (3.5-5.5); Sodium 145 mmol/L (135-145); Total Bilirubin 0.4 mg/dL (0.3-1.2); Total Iron Binding Capacity 319 UG/DL (228-460); Total Protein 5.9 g/dL (6.2-8.2); Uric Acid 6.2 mg/dL (2.9-7.7)
[2024-02-28 13:52] LABS: Free Kappa Lt Chain Qnt, Serum 1.81 mg/dL (0.33-1.94); Free Lambda Lt Chain Qnt, Seru 1.08 mg/dL (0.57-2.63)
== END | disposition home or self-care (01) ==
LOC: LABWHC1 13:33
PROVIDERS: ATTEND Internal Medicine
DX: E55.9 Vitamin D deficiency, unspecified (principal); M10.9 Gout, unspecified; D64.9 Anemia, unspecified; N18.32 Chronic kidney disease, stage 3b; N39.0 Urinary tract infection, site not specified; N25.81 Secondary hyperparathyroidism of renal origin
CPT/HCPCS: 36415; 80053; 81003; 82043; 82306; 82570; 82728; 83540; 83550; 83735; 83883; 83935; 83970; 84100; 84166; 84550; 85027; 86334

== ENCOUNTER → 2024-04-12 | Outpatient (CLI) | payer MEDICARE ==
--- NOTE | 2024-04-12 13:40 | US ---
EXAMINATION TYPE: US kidneys/renal and bladder DATE OF EXAM: 04/12/2024 COMPARISON: Renal ultrasound 05/04/2022 CLINICAL INDICATION: Female, 68 years old with history of N18.32 CHRONIC KIDNEY DISEASE, STAGE 3B; Yinka huynh denies any other sings, symptoms, or relevant history TECHNIQUE: Grayscale imaging of the bilateral kidneys and urinary bladder: FINDINGS: EXAM MEASUREMENTS: Right Kidney: 7.5 x 4.8 x 4.2 cm Left Kidney: 10.7 x 5.2 x 3.7 cm Post Void Residual Volume: NA mL Right Kidney: wnl, no evidence for hydronephrosis, mass or renal calculus. Left Kidney: wnl, no evidence for hydronephrosis, mass or renal calculus. Bladder: wnl Bilateral Jets seen: Yes Normal Post Void Residual: NA There is no evidence for hydronephrosis at this point in time. Corticomedullary differentiation is m aintained. No nephrolithiasis is seen. No masses are identified. The urinary bladder is anechoic. Known ovarian cyst redemonstrated = 6.4 x 5.7 x 5.8 cm IMPRESSION: 1. No hydronephrosis or hydronephrosis. 2. Redemonstration of mildly complex right ovarian cyst. Annual surveillance pelvic ultrasound is rec ommended. [facility], , 04/12/2024 1:38 PM
== END | disposition home or self-care (01) ==
LOC: RADUSWWP 13:10
PROVIDERS: ATTEND Internal Medicine Nephrology
DX: N18.32 Chronic kidney disease, stage 3b (principal)
CPT/HCPCS: 76770

== ENCOUNTER → 2024-06-05 | Outpatient (CLI) | payer MEDICARE ==
--- NOTE | 2024-06-05 14:54 | US ---
EXAMINATION TYPE: US thyroid st tissue head/neck DATE OF EXAM: 06/05/2024 COMPARISON: NONE CLINICAL INDICATION: Female, 69 years old with history of E21.3 HYPERPARATHYROIDISM, UNSPECIFIED; Pat ient denies any sings, symptoms, or other relevant history TECHNIQUE: Grayscale and color Doppler imaging of the thyroid gland. FINDINGS: GLAND SIZE: Right Lobe: 5.3 x 2.1 x 2.1 cm Overall Parenchyma: homogeneous Left Lobe: 5.2 x 1.8 x 1.8 cm Overall Parenchyma: homogeneous Isthmus Thickness: 0.2 cm NODULES RIGHT: # of nodules measured on right: 1 1. 1.6 X 1.2 x 1.2 cm, mid medial, spongiform, hypoechoic nodule, with smooth margins, without echo genic foci. TR 2 lesion. Prior size: No prior 2. Other subcentimeter cystic areas with echogenic foci seen LEFT: # of nodules measured on left: 0 1. Multiple cystic areas with echogenic foci seen throughout ISTHMUS: # of nodules measured in the isthmus: 0 Bilateral neck scanned, no evidence of lymphadenopathy. Normal size thyroid. IMPRESSION: As above. 2017 ACR TI-RADS LEVEL: TI-RADS 2 - Not Suspicious: No FNA *Highest TI-RADS level nodule reported [email or web address] [facility], , 06/05/2024 2:52 PM
== END | disposition home or self-care (01) ==
LOC: RADUSWWP 14:16
PROVIDERS: ATTEND Family Medicine
DX: E21.3 Hyperparathyroidism, unspecified (principal); E04.2 Nontoxic multinodular goiter
CPT/HCPCS: 76536

== ENCOUNTER → 2024-07-26 | Outpatient (CLI) | payer MEDICARE ==
[2024-07-26 15:19] LABS: Appearance,Urine Clear (Clear); Bilirubin,Urine Negative (Negative); Blood,Urine Negative (Negative); Color,Urine Yellow (Yellow); Ketones,Urine Negative (Negative); Nitrite,Urine Negative (Negative); PH, Urine 5.5; Specific Gravity,Urine 1.022 (1.001-1.030); Urobilinogen,Urine 0.2 E.U./DL
[2024-07-26 15:26] LABS: Bacteria,Urine None Seen (None Seen)
[2024-07-26 15:35] LABS: HCT 41.3 % (37.2-46.3); HGB 13.4 g/dL (12.0-15.0); MCH 29.9 pg (27.0-32.0); MCHC 32.4 g/dL (32.0-37.0); MCV 92.2 FL (80.0-97.0); Mean Platelet Volume 10.2 FL (9.5-12.2); NRBC Per 100 WBC 0 X 10*3/uL (0.00-0.01); Platelet Count 240 X 10*3/uL (140-440); RBC 4.48 X 10*6/uL (4.10-5.20); RDW 14.5 % (11.5-14.5); WBC 10.36 X 10*3/uL (4.50-10.00)
[2024-07-26 19:27] LABS: % Iron Saturation 14.77 (12.00-45.00); ALT 10 U/L (8-44); AST 16 U/L (13-35); Albumin 4.1 g/dL (3.8-4.9); Albumin/Globulin Ratio 2.16 Ratio (1.60-3.17); Alkaline Phosphatase 91 U/L (41-126); BUN/Creat Ratio 11.27 Ratio (12.00-20.00); Blood Urea Nitrogen 16.9 mg/dL (9.0-27.0); Calcium 9.4 mg/dL (8.7-10.3); Carbon Dioxide 27.3 mmol/L (21.6-31.8); Chloride 105 mmol/L (96-109); Ferritin 52.4 ng/mL (10.0-291.0); Globulin 1.9 g/dL (1.6-3.3); Glucose 195 mg/dL (70-110); Iron 44 UG/DL (50-170); Magnesium 1.9 mg/dL (1.5-2.4); Phosphorus 3.2 mg/dL (2.4-5.1); Potassium 4.6 mmol/L (3.5-5.5); Sodium 142 mmol/L (135-145); T4, Free (Free Thyroxine) 1.21 ng/dL (0.80-1.80); Total Bilirubin 0.3 mg/dL (0.3-1.2); Total Iron Binding Capacity 298 UG/DL (228-460); Uric Acid 3.1 mg/dL (2.9-7.7)
== END | disposition home or self-care (01) ==
LOC: LABWHC1 11:46
PROVIDERS: ATTEND Internal Medicine
DX: I10 Essential (primary) hypertension (principal); N39.0 Urinary tract infection, site not specified; R80.9 Proteinuria, unspecified; E55.9 Vitamin D deficiency, unspecified; N25.81 Secondary hyperparathyroidism of renal origin; M10.9 Gout, unspecified; N18.31 Chronic kidney disease, stage 3a; D63.1 Anemia in chronic kidney disease; Z79.899 Other long term (current) drug therapy
CPT/HCPCS: 36415; 80053; 81001; 82043; 82306; 82570; 82728; 83540; 83550; 83735; 83970; 84100; 84439; 84443; 84481; 84550; 85027

== ENCOUNTER → 2024-11-08 | Outpatient (CLI) | payer MEDICARE ==
--- NOTE | 2024-11-08 15:34 | CTL ---
EXAMINATION TYPE: CT Low Dose Lung DATE OF EXAM ORDERED: 11/08/2024 COMPARISON: 10/03/2023 CLINICAL INDICATION: Female, 69 years old with history of Z12.2, F17.210 NICOTINE DEPENDENCE; [facility], [place] story of smoking, Lung cancer screening, History of Smoking/tobacco use. TECHNIQUE: Low dose computed tomography scan was performed through the chest at 1 mm thick sections a nd reconstructed images in multiple planes at 1 mm and [address] DLP: 131.[address] CTDI: 3.5 mGy Automated exposure control for dose reduction was used. CT DIAGNOSTIC QUALITY: Satisfactory Findings: There has been interval development of a 2.7 x 2.7 x 2.0 cm ill-defined masslike opacity in the right middle lobe adjacent to the pleura. This may represent new pleural parenchymal scarring around atele ctasis but the possibility of neoplasm is not excluded and further evaluation is warranted. PET scan or direct tissue sampling is recommended for further evaluation. There are minimal interstitial gaston es in the lingula. There is a 2 to 3 mm nodule in the left lower lobe. There is no pleural effusion or pneumothorax. The great vessels and heart are normal in size. There is no mediastinal, hilar or axillary adenopathy. Limited scanning through the upper abdomen reveals a 3.0 x 3.7 cm hypodense fat-containing left adren al mass. There is mild right adrenal nodularity. There are no focal osseous lesions. IMPRESSION: 1. Lung RADS category 4B, very suspicious for malignancy. Further evaluation is warranted with PET sc an and/or tissue sampling. See above. 2. 3.7 x 3.0 cm left adrenal mass possibly an adenoma but further evaluation with CT abdomen attentio n adrenal glands is recommended. [facility], , 11/08/2024 3:32 PM
== END | disposition home or self-care (01) ==
LOC: RADCTMAIN 14:54
PROVIDERS: ATTEND Family Medicine
DX: Z12.2 Encounter for screening for malignant neoplasm of respiratory organs (principal); F17.210 Nicotine dependence, cigarettes, uncomplicated; E27.9 Disorder of adrenal gland, unspecified
CPT/HCPCS: 71271